=== PATIENT | female | born 1930 | race Caucasian/White ===

== ENCOUNTER 2018-02-19 13:29 | Emergency (ER) | payer OTHER ==
[2018-02-19] MEDS ORDERED: HYDROCODONE/APAP 5/325 MG TAB ONE (16:58)
--- NOTE | 2018-02-19 17:01 | RAD REPORT ---
EXAM DESCRIPTION: RAD - Pelvis - 02/19/2018 4:06 pm CLINICAL HISTORY: Pelvic pain FINDINGS: No fracture or dislocation is seen. The bones are osteoporotic. 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
--- NOTE | 2018-02-19 17:01 | RAD REPORT ---
EXAM DESCRIPTION: RAD - Lumbar Spine 3 Views - 02/19/2018 4:07 pm CLINICAL HISTORY: Back pain FINDINGS: The bones are osteoporotic No fracture or dislocation is seen. Mild anterior subluxation of L5 on S1 is present. The disc is markedly thinned. Mild spondylosis is present
--- NOTE | 2018-02-19 17:13 | EDPHYS ---
Physician Documentation [facility] Name: Gracie Lewis Age: 87 yrs Sex: Female : 1930 Arrival Date: 02/19/2018 Time: 13:31 Bed 13 Private MD: Jacinta Tracey C ED Physician Augusto Banda HPI: 02/19 14:51 This 87 yrs old Female presents to ER via Ambulatory with complaints of Back jmm Pain. 14:51 The patient presents with pain that is acute, with no known mechanism of injury. The jmm symptoms are located in the left gluteus. Onset: The symptoms/episode began/occurred today. The pain radiates to the left hip and lateral aspect of left thigh. Associated signs and symptoms: Pertinent negatives: dysuria, fever, hematuria, incontinence, nausea, numbness, urinary retention. This is an 87 year old female with a history of depression, Gastric Reflux, GERD, insomnia, lymphoma presents to the ED with left gluteal pain radiating down her left lateral leg. Patient denies weakness, numbness, fever, or injury. . Historical: - Allergies: 13:46 moon; aa5 13:46 GABAPENTIN; aa5 13:46 Lyrica; aa5 13:46 PENICILLINS; aa5 - PMHx: 13:46 Depression; Gastric Reflux; GERD; insomnia; LYMPHOMA; restless leg syndrome; Neuropathy;aa5 - Immunization history:: Adult Immunizations up to date. - Social history:: Smoking status: Patient/guardian denies using tobacco. - Ebola Screening: : Patient negative for fever greater than or equal to 101.5 degrees Fahrenheit, and additional compatible Ebola Virus Disease symptoms Patient denies exposure to infectious person Patient denies travel to an Ebola-affected area in the 21 days before illness onset No symptoms or risks identified at this time. ROS: 14:51 Constitutional: Negative for fever, chills, and weight loss, Cardiovascular: Negative jmm for chest pain, palpitations, and edema, Respiratory: Negative for shortness of breath, cough, wheezing, and pleuritic chest pain. 14:51 Back: Negative for pain at rest, pain with movement. 14:51 MS/extremity: Positive for pain. 14:51 Neuro: Negative for numbness, weakness. 14:51 All other systems are negative. Exam: 14:51 Head/Face: atraumatic. Chest/axilla: Normal chest wall appearance and motion. [facility] Cardiovascular: Regular rate and rhythm. No edema appreciated Respiratory: Normal respirations, no respiratory distress appreciated Abdomen/GI: Non distended, soft 14:51 Constitutional: The patient appears in no acute distress, alert, awake. 14:51 Musculoskeletal/extremity: ROM: intact in all extremities, left gluteus is non tender to palpation, patient is able to weight bear, flexion of the left hip is appreciated without difficulty. full dorsalis pedis pulse, NVI. 14:51 Skin: no rash is appreciated to the left gluteus. 14:51 Neuro: Orientation: is normal, Mentation: is normal, Gait: is steady. 14:51 Psych: Behavior/mood is pleasant, cooperative. Vital Signs: 13:46 BP 131 / 74; Pulse 99; Resp 16 S; Temp 97.7(O); Pulse Ox 95% on R/A; Weight 68.04 kg aa5 (R); Height 5 ft. 7 in. (170.18 cm) (R); Pain 8/10; 17:19 BP 129 / 78; Pulse 76; Resp 18; Pulse Ox 99% on R/A; aj 13:46 Body Mass Index 23.49 (68.04 kg, 170.18 cm) aa5 MDM: 14:51 Patient medically screened. [facility] 17:12 Data reviewed: vital signs, nurses notes, lab test result(s), radiologic studies, plain [facility] films. Counseling: I had a detailed discussion with the patient and/or guardian regarding: the historical points, exam findings, and any diagnostic results supporting the discharge/admit diagnosis, radiology results, the need for outpatient follow up, to return to the emergency department if symptoms worsen or persist or if there are any questions or concerns that arise at home. 02/19 14:54 Order name: Lumbar Spine (3 Views) XRAY; Complete Time: 17:20 [facility] 02/19 14:54 Order name: Pelvis XRAY; Complete Time: 17:20 [facility] Administered Medications: 16:59 Drug: [place] 5 mg-325 mg 1 tabs Route: PO; aj 17:22 Follow up: Response: Pain is decreased aj Disposition: 17:52 Co-signature as Attending Physician, Augusto Banda MD. rn Disposition: 02/19/18 17:13 Discharged to Home. Impression: Lower Extremity Pain. - Condition is Stable. - Discharge Instructions: Hip Pain. - Medication Reconciliation Form, Thank You Letter, Antibiotic Education, Prescription Opioid Use form. - Follow up: Jacinta Tracey MD; When: 2 - 3 days; Reason: Continuance of care. Follow up: Rex Guzman MD; When: 2 - 3 days; Reason: Continuance of care. Signatures: Dispatcher [employer] EDMS Josie Woodard, RN RN Clifton Piña PA PA [facility] Augusto Banda MD MD rn Calderon, Audri, RN RN aa5 Corrections: (The following items were deleted from the chart) 17:14 17:13 02/19/2018 17:13 Discharged to Home. Impression: Acute pharyngitis. Condition is m Stable. Forms are Medication Reconciliation Form, Thank You Letter, Antibiotic Education, Prescription Opioid Use. Follow up: Jacinta Tracey; When: 2 - 3 days; Reason: Continuance of care. [facility] 17:14 17:14 02/19/2018 17:13 Discharged to Home. Impression: Lower Extremity Pain. Condition jmm is Stable. Forms are Medication Reconciliation Form, Thank You Letter, Antibiotic Education, Prescription Opioid Use. Follow up: Jacinta Tracey; When: 2 - 3 days; Reason: Continuance of care. [facility] 17:22 17:14 02/19/2018 17:13 Discharged to Home. Impression: Lower Extremity Pain. Condition aj is Stable. Discharge Instructions: Hip Pain. Forms are Medication Reconciliation Form, Thank You Letter, Antibiotic Education, Prescription Opioid Use. Follow up: Jacinta Tracey; When: 2 - 3 days; Reason: Continuance of care. Follow up: Rex Guzman; When: 2 - 3 days; Reason: Continuance of care. [facility]
--- NOTE | 2018-02-19 17:13 | ER ---
Nurse's Notes [facility] Name: Gracie Lewis Age: 87 yrs Sex: Female : 1930 Arrival Date: 02/19/2018 Time: 13:31 Bed 13 Private MD: Jacinta Tracey C Diagnosis: Lower Extremity Pain Presentation: 02/19 13:44 Presenting complaint: Patient states: "the neuropathy on my hands and feet is aa5 particularly bad today". Pt also c/o left low back pain radiating to left leg that began today at 8 am. Pt denies known injury. Pt states "I took Vicodin but it's not helping". Transition of care: patient was not received from another setting of care. Onset of symptoms was January 2018. Risk Assessment: Do you want to hurt yourself or someone else? Patient reports no desire to harm self or others. Initial Sepsis Screen: Does the patient meet any 2 criteria? No. Patient's initial sepsis screen is negative. Does the patient have a suspected source of infection? No. Patient's initial sepsis screen is negative. Care prior to arrival: None. 13:44 Method Of Arrival: Ambulatory aa5 13:44 Acuity: ZUNILDA 4 aa5 Historical: - Allergies: 13:46 moon; aa5 13:46 GABAPENTIN; aa5 13:46 Lyrica; aa5 13:46 PENICILLINS; aa5 - PMHx: 13:46 Depression; Gastric Reflux; GERD; insomnia; LYMPHOMA; restless leg syndrome; Neuropathy;aa5 - Immunization history:: Adult Immunizations up to date. - Social history:: Smoking status: Patient/guardian denies using tobacco. - Ebola Screening: : Patient negative for fever greater than or equal to 101.5 degrees Fahrenheit, and additional compatible Ebola Virus Disease symptoms Patient denies exposure to infectious person Patient denies travel to an Ebola-affected area in the 21 days before illness onset No symptoms or risks identified at this time. Screenin:20 Abuse screen: Denies threats or abuse. Denies injuries from another. Nutritional aj screening: No deficits noted. Tuberculosis screening: No symptoms or risk factors identified. Fall Risk None identified. Assessment: 15:20 General: Appears in no apparent distress. comfortable, Behavior is calm, cooperative, aj appropriate for age. Pain: Complains of pain in left lower back, left gluteus dm and left gluteal fold. Neuro: Level of Consciousness is awake, alert, obeys commands, Oriented to person, place, time, situation, Appropriate for age. Respiratory: Airway is patent Respiratory effort is even, unlabored, Respiratory pattern is regular, symmetrical. Derm: Skin is intact, is healthy with good turgor, Skin is pink, warm \\T\\ dry. normal. Musculoskeletal: Reports pain in left lower back, left gluteus dm, left gluteal fold and left hamstring. Vital Signs: 13:46 BP 131 / 74; Pulse 99; Resp 16 S; Temp 97.7(O); Pulse Ox 95% on R/A; Weight 68.04 kg aa5 (R); Height 5 ft. 7 in. (170.18 cm) (R); Pain 8/10; 17:19 BP 129 / 78; Pulse 76; Resp 18; Pulse Ox 99% on R/A; aj 13:46 Body Mass Index 23.49 (68.04 kg, 170.18 cm) aa5 ED Course: 13:31 Patient arrived in ED. mr 13:32 Jacinta Tracey MD is Private Physician. mr 13:45 Triage completed. aa5 13:45 Arm band placed on. aa5 14:02 Clifton Salvador PA is PHCP. [facility] 14:02 Augusto Banda MD is Attending Physician. jmm 14:22 Josie Woodard, RN is Primary Nurse. aj 15:20 Patient has correct armband on for positive identification. aj 15:20 No provider procedures requiring assistance completed. aj 16:05 Lumbar Spine (3 Views) XRAY In Process Unspecified. EDMS 16:06 Pelvis XRAY In Process Unspecified. EDMS 17:12 Jacinta Tracey MD is Referral Physician. jmm 17:14 Rex Guzman MD is Referral Physician. jmm 17:19 Patient did not have IV access during this emergency room visit. aj Administered Medications: 16:59 Drug: [place] 5 mg-325 mg 1 tabs Route: PO; aj 17:22 Follow up: Response: Pain is decreased aj Outcome: 17:13 Discharge ordered by . jmm 17:19 Discharged to home ambulatory, with family. aj 17:19 Condition: good 17:19 Discharge instructions given to patient, family, Instructed on discharge instructions, follow up and referral plans. Demonstrated understanding of instructions, follow-up care. 17:22 Patient left the ED. kaden Signatures: Dispatcher [employer] Josie Huynh RN RN Clifton Piña PA PA jmm Rivera, Maria mr SnyderAudelia, RN RN aa5 Corrections: (The following items were deleted from the chart) 13:46 13:44 Presenting complaint: Patient states: "the neuropathy on my hands and feet is aa5 particularly bad today". Pt also c/o left low back pain radiating to left leg that began today at 8 am. Pt denies known injury. aa5
[2018-02-19 17:38] VITALS: TEMP 97.7
[2018-02-19 17:39] VITALS: BP 129/78; O2SAT 99
== END 2018-02-19 17:22 | disposition home or self-care (01) ==
LOC: ER 13:29
DX: M25.552 Pain in left hip (principal); M54.5 Low back pain
CPT/HCPCS: 72100; 72170; 99283

== ENCOUNTER 2018-06-04 10:29 | Emergency (ER) | payer OTHER ==
[2018-06-04 11:46] LABS: Absolute Lymphocytes (CBC) 2.1 K/uL (0.7-4.9); Absolute Monocytes 0.7 K/uL (0.1-1.3); Absolute Neutrophil 5.4 K/uL (1.8-8.0); Basophils % 1.2 % (0-1.3); Eosinophils % 1.1 % (0-4.4); Hematocrit 43.1 % (36.0-45.0); Lymphocytes % 25.1 % (15.3-44.8); MCH 28.8 pg (27.0-35.0); MCV 86.3 fL (80-100); MPV 7.3 fL (7.6-11.3)
[2018-06-04 12:05] LABS: ALT/SGPT 23 U/L (12-78); AST/SGOT 21 U/L (15-37); Albumin 4.7 g/dL (3.4-5.0); Alkaline Phosphatase 87 U/L (45-117); BUN Blood Urea Nitrogen 19 mg/dL (7-18); Bicarbonate 26 mmol/L (21-32); Bilirubin Direct 0.2 mg/dL (0-0.2); Bilirubin Total 0.7 mg/dL (0.2-1.0); Glucose Level 93 mg/dL (74-106); Magnesium 2.4 mg/dL (1.8-2.4); NT PRO-BNP 382 pg/mL (<450); Potassium 3.9 mmol/L (3.5-5.1); Protein, Total 7.9 g/dL (6.4-8.2); Sodium Level 140 mmol/L (136-145); Troponin (Emerg Dept Use Only) < 0.02 ng/mL (0.0-0.045)
[2018-06-04 12:28] LABS: Urine Blood NEGATIVE (NEG); Urine Glucose NEGATIVE (NEG); Urine Protein NEGATIVE (NEG); Urine Specific Gravity 1.015 (1.005-1.030); Urine pH 7.5 (5.0-7.0)
[2018-06-04 12:42] LABS: Protime INR 0.89
--- NOTE | 2018-06-04 13:12 | RAD REPORT ---
EXAM DESCRIPTION: CT - Chest Abdomen W Con - 06/04/2018 12:49 pm CLINICAL HISTORY: Chest and abdominal pain COMPARISON: March 2017 TECHNIQUE: Computed axial tomography of the chest, and abdomen obtained. 100 cc Isovue-300 administe red intravenously. Oral contrast was not requested. Evaluation of bowel is limited second lack of ora l contrast administration All CT scans are performed using dose optimization technique as appropriate and may include automated exposure control or mA/KV adjustment according to patient size. 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 Calcified lung granulomas are seen. Mild chronic interstitial lung opacities are present. . A pleural effusion is not present. A pericardial effusion is not seen. No mediastinal or hilar lymphadenopathy is noted. The gallbladder has been removed. Liver, spleen, pancreas and adrenals appear unremarkable. No ascites is seen. Spondylolysis involves L5 A small hiatal hernia is present. Moderate amount of stool is seen within visualized bowel IMPRESSION: No acute abnormality involving the chest Moderate amount of stool within the abdomen
--- NOTE | 2018-06-04 13:13 | RAD REPORT ---
EXAM DESCRIPTION: Danyel Single View06/04/2018 11:45 am CLINICAL HISTORY: Chest pain COMPARISON: March 2017 FINDINGS: The lungs appear clear of acute infiltrate. The heart is normal size. Pacemaker leads are place. Calcified biapical pleural plaques are unchanged IMPRESSION: No acute abnormalities displayed
--- NOTE | 2018-06-04 15:39 | ER ---
Nurse's Notes [facility] Name: Gracie Lewis Age: 87 yrs Sex: Female : 1930 Arrival Date: 06/04/2018 Time: 10:31 Bed 5 Private MD: Diagnosis: Acute myofascial pain: left infrascapula Presentation: 06/04 10:38 Presenting complaint: Patient states: since I got out of the shower at 0500 this la1 morning I have been having pain below my left shoulder blade that radiates around to the front of my abd. Pt denies fall/injury. Pain with deep breath and cough. Transition of care: patient was not received from another setting of care. Onset of symptoms was June 04, 2018. Risk Assessment: Do you want to hurt yourself or someone else? Patient reports no desire to harm self or others. Initial Sepsis Screen: Does the patient meet any 2 criteria? No. Patient's initial sepsis screen is negative. Does the patient have a suspected source of infection? No. Patient's initial sepsis screen is negative. Care prior to arrival: None. 10:38 Method Of Arrival: Ambulatory la1 10:38 Acuity: ZUNILDA 3 la1 Historical: - Allergies: 10:40 moon; la1 10:40 Lyrica; la1 10:40 PENICILLINS; la1 10:40 tramadol; la1 - Home Meds: 11:00 Ambien 5 mg Oral tab 1 tab once daily for Sleep-Onset Insomnia [Active]; aspirin 81 mg tw2 Oral chew 1 tab once daily [Active]; calcium (unkown) daily [Active]; Cymbalta 30 mg Oral cpDR 1 cap once daily [Active]; lanzaprozole 15 mg daily 15 mg before meals [Active]; Multi Vitamin Oral 1 tab daily [Active]; Oxybutynin Chloride Oral once daily [Active]; pramipexole 1.25 mg Oral unkown for Restless Legs Syndrome [Active]; hydrocodone-acetaminophen 10-325 mg Oral tab .5 tab every 6 hours [Active]; - PMHx: 10:40 Depression; Gastric Reflux; GERD; insomnia; LYMPHOMA; neuropathy; restless leg syndrome;la1 - PSHx: 10:40 pacemaker; la1 - Immunization history:: Adult Immunizations up to date. - Social history:: Smoking status: Patient/guardian denies using tobacco. - Ebola Screening: : No symptoms or risks identified at this time. Screenin:52 Abuse screen: Denies threats or abuse. Nutritional screening: No deficits noted. tw2 Tuberculosis screening: No symptoms or risk factors identified. Fall Risk None identified. Assessment: 10:52 General: Appears in no apparent distress. well groomed, Behavior is calm, cooperative, tw2 appropriate for age. Pain: Complains of pain in left lateral posterior chest. Neuro: Level of Consciousness is awake, alert, obeys commands, Oriented to person, place, time, situation. Cardiovascular: Reports chest pain, shortness of breath, "it hurts to breathe, it started after my shower about 5 am in my LEFT shoulder then it radiates around, and it hurts to breathe" Heart tones S1 S2 Capillary refill < 3 seconds Patient's skin is warm and dry. Respiratory: Airway is patent Respiratory effort is even, unlabored, Respiratory pattern is regular, symmetrical, Breath sounds are clear bilaterally. GI: No signs and/or symptoms were reported involving the gastrointestinal system. Abdomen is flat, Bowel sounds present X 4 quads. : No signs and/or symptoms were reported regarding the genitourinary system. EENT: No signs and/or symptoms were reported regarding the EENT system. Derm: No signs and/or symptoms reported regarding the dermatologic system. Musculoskeletal: Reports pain in left lateral posterior chest and left back. 11:45 Reassessment: Patient appears in no apparent distress at this time. Patient and/or tw2 family updated on plan of care and expected duration. Pain level reassessed. Patient is alert, oriented x 3, equal unlabored respirations, skin warm/dry/pink. at this time pt took her own Hydrocodone, Dr. Blanc aware. 12:30 Reassessment: Patient appears in no apparent distress at this time. No changes from tw2 previously documented assessment. Patient and/or family updated on plan of care and expected duration. Pain level reassessed. Patient is alert, oriented x 3, equal unlabored respirations, skin warm/dry/pink. 13:50 Reassessment: Patient appears in no apparent distress at this time. No changes from tw2 previously documented assessment. Patient and/or family updated on plan of care and expected duration. Pain level reassessed. Patient is alert, oriented x 3, equal unlabored respirations, skin warm/dry/pink. 14:36 Reassessment: Patient appears in no apparent distress at this time. No changes from tw2 previously documented assessment. Patient and/or family updated on plan of care and expected duration. Pain level reassessed. Patient is alert, oriented x 3, equal unlabored respirations, skin warm/dry/pink. 15:42 Reassessment: Patient appears in no apparent distress at this time. No changes from tw2 previously documented assessment. Patient and/or family updated on plan of care and expected duration. Pain level reassessed. Patient is alert, oriented x 3, equal unlabored respirations, skin warm/dry/pink. Vital Signs: 10:40 BP 148 / 78; Pulse 92; Resp 16; Temp 97.8(TE); Pulse Ox 98% on R/A; Weight 68.04 kg; la1 Height 5 ft. 8 in. (172.72 cm); 11:46 BP 164 / 83; Pulse 73; Resp 11; Pulse Ox 98% on R/A; tw2 12:50 BP 133 / 93; Pulse 87; Resp 17; Pulse Ox 97% on R/A; tw2 13:30 BP 135 / 98; Pulse 80; Resp 17; Pulse Ox 96% on R/A; tw2 14:34 BP 119 / 100; Pulse 85; Resp 14; Pulse Ox 96% on R/A; tw2 15:42 BP 153 / 71; Pulse 75; Resp 17; Pulse Ox 100% on R/A; tw2 10:40 Body Mass Index 22.81 (68.04 kg, 172.72 cm) la1 ED Course: 10:31 Patient arrived in ED. as 10:39 Triage completed. la1 10:40 Arm band placed on right wrist. la1 10:41 Yessy Castellon, RN is Primary Nurse. tw2 10:45 Marck Blanc MD is Attending Physician. kdr 10:51 Placed in gown. Bed in low position. Side rails up X 1. Adult w/ patient. Cardiac tw2 monitor on. Pulse ox on. NIBP on. 10:59 EKG done, by ED staff, reviewed by Marck Blanc MD. dh3 11:45 XRAY Chest (1 view) In Process Unspecified. EDMS 11:45 Missed attempt(s): 22 gauge in right antecubital area. Bleeding controlled, band aid tw2 applied, catheter tip intact. Inserted saline lock: 22 gauge in right antecubital area, using aseptic technique. Blood collected. 12:50 CT Chest Abdomen W/ Contrast In Process Unspecified. EDMS 15:37 Jorge Tracey MD is Referral Physician. kdr 15:46 No provider procedures requiring assistance completed. IV discontinued, intact, tw2 bleeding controlled, No redness/swelling at site. Pressure dressing applied. Administered Medications: 15:41 Not Given (Patient Refused; "i will take my own medicine at home to keep up with it"): tw2 [place] 10 mg-325 mg 1 tabs PO once Outcome: 15:38 Discharge ordered by . kdr 15:46 Discharged to home ambulatory, with family. tw2 15:46 Condition: stable 15:46 Discharge instructions given to patient, family, Instructed on discharge instructions, follow up and referral plans. Demonstrated understanding of instructions, follow-up care. 15:46 Patient left the ED. tw2 Signatures: Dispatcher [employer] EDMS Marck Blanc MD MD kdr Radha Lambert Lee RN RN la1 Yessy Castellon RN RN tw2 Radha Muñiz 3 Corrections: (The following items were deleted from the chart) 10:41 10:38 Presenting complaint: Patient states: since I got out of the shower at 0500 this la1 morning I have been having pain below my left shoulder blade that radiates around to the front of my abd. Pt denies fall/injury. la1
--- NOTE | 2018-06-04 15:39 | EDPHYS ---
Physician Documentation [facility] Name: Gracie Lewis Age: 87 yrs Sex: Female : 1930 Arrival Date: 06/04/2018 Time: 10:31 Bed 5 Private MD: ED Physician Marck Blanc HPI: 06/04 13:01 This 87 yrs old Female presents to ER via Ambulatory with complaints of Back kdr Pain. 13:01 The patient presents with pain that is acute, with no known mechanism of injury. The kdr symptoms are located in the Left lateral infra-thoracic. Onset: The symptoms/episode began/occurred suddenly, just prior to arrival, this morning, at 05:00. States she feels like she has a band like stricture around her lower thorax. Associated signs and symptoms: The patient has no apparent associated signs or symptoms. The problem was sustained without known cause. Modifying factors: The patient symptoms are alleviated by remaining still, the patient symptoms are aggravated by any movement, bending, coughing, movement. Severity of symptoms: At their worst the symptoms were moderate, severe, just prior to arrival, in the emergency department the symptoms have improved, mildly. The patient has not experienced similar symptoms in the past. The patient has not recently seen a physician. Historical: - Allergies: 10:40 moon; la1 10:40 Lyrica; la1 10:40 PENICILLINS; la1 10:40 tramadol; la1 - Home Meds: 11:00 Ambien 5 mg Oral tab 1 tab once daily for Sleep-Onset Insomnia [Active]; aspirin 81 mg tw2 Oral chew 1 tab once daily [Active]; calcium (unkown) daily [Active]; Cymbalta 30 mg Oral cpDR 1 cap once daily [Active]; lanzaprozole 15 mg daily 15 mg before meals [Active]; Multi Vitamin Oral 1 tab daily [Active]; Oxybutynin Chloride Oral once daily [Active]; pramipexole 1.25 mg Oral unkown for Restless Legs Syndrome [Active]; hydrocodone-acetaminophen 10-325 mg Oral tab .5 tab every 6 hours [Active]; - PMHx: 10:40 Depression; Gastric Reflux; GERD; insomnia; LYMPHOMA; neuropathy; restless leg syndrome;la1 - PSHx: 10:40 pacemaker; la1 - Immunization history:: Adult Immunizations up to date. - Social history:: Smoking status: Patient/guardian denies using tobacco. - Ebola Screening: : No symptoms or risks identified at this time. ROS: 13:01 Constitutional: Negative for fever, chills, and weight loss, Eyes: Negative for injury, kdr pain, redness, and discharge, ENT: Negative for injury, pain, and discharge, Neck: Negative for injury, pain, and swelling, Cardiovascular: Negative for chest pain, palpitations, and edema, Respiratory: Negative for shortness of breath, cough, wheezing, and pleuritic chest pain, Abdomen/GI: Negative for abdominal pain, nausea, vomiting, diarrhea, and constipation, : Negative for injury, bleeding, discharge, and swelling, MS/Extremity: Negative for injury and deformity, Skin: Negative for injury, rash, and discoloration, Neuro: Negative for headache, weakness, numbness, tingling, and seizure activity. Psych: Negative for depression, anxiety, suicide ideation, homicidal ideation, and hallucinations, Allergy/Immunology: Negative for hives, rash, and allergies, Endocrine: Negative for neck swelling, polydipsia, polyuria, polyphagia, and marked weight changes, Hematologic/Lymphatic: Negative for swollen nodes, abnormal bleeding, and unusual bruising. 13:01 Back: Positive for decreased range of motion, pain at rest, pain with movement. Exam: 13:01 Constitutional: This is a well developed, well nourished patient who is awake, alert, kdr and in no acute distress. Head/Face: Normocephalic, atraumatic. Eyes: Pupils equal round and reactive to light, extra-ocular motions intact. Lids and lashes normal. Conjunctiva and sclera are non-icteric and not injected. Cornea within normal limits. Periorbital areas with no swelling, redness, or edema. Neck: Trachea midline, no thyromegaly or masses palpated, and no cervical lymphadenopathy. Supple, full range of motion without nuchal rigidity, or vertebral point tenderness. No Meningismus. Chest/axilla: Normal chest wall appearance and motion. Nontender with no deformity. No lesions are appreciated. Cardiovascular: Regular rate and rhythm with a normal S1 and S2. No gallops, murmurs, or rubs. Normal PMI, no JVD. No pulse deficits. Respiratory: Lungs have equal breath sounds bilaterally, clear to auscultation and percussion. No rales, rhonchi or wheezes noted. No increased work of breathing, no retractions or nasal flaring. Abdomen/GI: Soft, non-tender, with normal bowel sounds. No distension or tympany. No guarding or rebound. No evidence of tenderness throughout. Back: No spinal tenderness. No costovertebral tenderness. Full range of motion. Skin: Warm, dry with normal turgor. Normal color with no rashes, no lesions, and no evidence of cellulitis. MS/ Extremity: Pulses equal, no cyanosis. Neurovascular intact. Full, normal range of motion. Neuro: Awake and alert, GCS 15, oriented to person, place, time, and situation. Cranial nerves II-XII grossly intact. Motor strength 5/5 in all extremities. Sensory grossly intact. Cerebellar exam normal. Normal gait. Psych: Awake, alert, with orientation to person, place and time. Behavior, mood, and affect are within normal limits. Vital Signs: 10:40 BP 148 / 78; Pulse 92; Resp 16; Temp 97.8(TE); Pulse Ox 98% on R/A; Weight 68.04 kg; la1 Height 5 ft. 8 in. (172.72 cm); 11:46 BP 164 / 83; Pulse 73; Resp 11; Pulse Ox 98% on R/A; tw2 12:50 BP 133 / 93; Pulse 87; Resp 17; Pulse Ox 97% on R/A; tw2 13:30 BP 135 / 98; Pulse 80; Resp 17; Pulse Ox 96% on R/A; tw2 14:34 BP 119 / 100; Pulse 85; Resp 14; Pulse Ox 96% on R/A; tw2 15:42 BP 153 / 71; Pulse 75; Resp 17; Pulse Ox 100% on R/A; tw2 10:40 Body Mass Index 22.81 (68.04 kg, 172.72 cm) la1 MDM: 13:01 Data reviewed: vital signs, nurses notes, lab test result(s), radiologic studies. kdr Counseling: I had a detailed discussion with the patient and/or guardian regarding: the historical points, exam findings, and any diagnostic results supporting the discharge/admit diagnosis, lab results, radiology results. 15:38 Patient medically screened. kdr 06/04 11:18 Order name: Basic Metabolic Panel; Complete Time: 12:52 kdr 06/04 11:18 Order name: CBC with Diff; Complete Time: 12:03 kdr 06/04 11:18 Order name: LFT's; Complete Time: 12:52 kdr 06/04 11:18 Order name: Magnesium; Complete Time: 12:52 kdr 06/04 11:18 Order name: NT PRO-BNP; Complete Time: 12:52 kdr 06/04 11:18 Order name: PT-INR; Complete Time: 12:52 kdr 06/04 10:54 Order name: EKG - Nurse/Tech; Complete Time: 10:54 tw2 06/04 10:54 Order name: EKG; Complete Time: 10:54 tw2 06/04 11:18 Order name: Troponin (emerg Dept Use Only); Complete Time: 12:52 kdr 06/04 11:18 Order name: XRAY Chest (1 view); Complete Time: 13:15 kdr 06/04 11:46 Order name: Urine Dipstick--Ancillary (enter results); Complete Time: 12:52 em1 06/04 12:03 Order name: CT Chest Abdomen W/ Contrast; Complete Time: 13:15 kdr 06/04 13:16 Order name: Troponin (emerg Dept Use Only); Complete Time: 14:24 kdr 06/04 11:18 Order name: Cardiac monitoring; Complete Time: 11:18 kdr 06/04 11:18 Order name: IV Saline Lock; Complete Time: 11:46 kdr 06/04 11:18 Order name: Labs collected and sent; Complete Time: 11:47 kdr 06/04 11:18 Order name: O2 Per Protocol; Complete Time: 11:18 kdr 06/04 11:18 Order name: O2 Sat Monitoring; Complete Time: 11:18 kdr 06/04 11:46 Order name: Urine Dipstick-Ancillary (obtain specimen); Complete Time: 11:46 em1 Administered Medications: 15:41 Not Given (Patient Refused; "i will take my own medicine at home to keep up with it"): tw2 [place] 10 mg-325 mg 1 tabs PO once Disposition: 06/04/18 15:38 Discharged to Home. Impression: Acute myofascial pain: left infrascapula. - Condition is Stable. - Discharge Instructions: Musculoskeletal Pain, Back Pain, Adult, [id number]. - Medication Reconciliation Form, Thank You Letter form. - Follow up: Jorge Tracey MD; When: 2 - 3 days; Reason: If symptoms return, Further diagnostic work-up, Recheck today's complaints, Continuance of care, Re-evaluation by your physician. - Problem is new. - Symptoms have improved. Signatures: Dispatcher [employer] EDMS Marck Blanc MD MD [facility] Tab Lambert em1 Adarsh Cook RN RN la1 Yessy Castellon RN RN tw2 Corrections: (The following items were deleted from the chart) 15:46 15:38 06/04/2018 15:38 Discharged to Home. Impression: Acute myofascial pain: left tw2 infrascapula. Condition is Stable. Forms are Medication Reconciliation Form, Thank You Letter, Antibiotic Education, Prescription Opioid Use. Follow up: Jroge Tracey; When: 2 - 3 days; Reason: If symptoms return, Further diagnostic work-up, Recheck today's complaints, Continuance of care, Re-evaluation by your physician. Problem is new. Symptoms have improved. kdr
[2018-06-04 15:53] VITALS: TEMP 97.8
[2018-06-04 15:58] VITALS: BP 153/71; O2SAT 100
--- NOTE | 2018-06-05 06:09 | EKG ---
Test Date: 2018-06-04 Test Time: 10:58:07 Manager Unix: KATIE MEASUREMENT RESULTS: Intervals: Rate: 81 SD: QRSD: 76 QT: 384 QTc: 446 [place]: P: SD: QRS: 74 T: 77 INTERPRETIVE STATEMENTS: Sinus rhythm Nnormal ECG Compared to ECG 03/19/2017 17:34:53 no significant change from previous ECG Electronically Signed On 06-05-18 06:09:00 BIOINFORMATICS SCIENTIST by José Cifuentes
== END 2018-06-04 15:46 | disposition home or self-care (01) ==
LOC: ER 10:29
DX: M79.18 Myalgia, other site (principal); K21.9 Gastro-esophageal reflux disease without esophagitis; F32.9 Major depressive disorder, single episode, unspecified; Z79.82 Long term (current) use of aspirin; Z88.0 Allergy status to penicillin; Z88.6 Allergy status to analgesic agent; Z88.8 Allergy status to other drugs, medicaments and biological substances; Z95.0 Presence of cardiac pacemaker; Z91.048 Other nonmedicinal substance allergy status
CPT/HCPCS: 36415; 71045; 71260; 74160; 80048; 80076; 81003; 83735; 83880; 84484 ×2; 85025; 85610; 93005; 99284; Q9967

== ENCOUNTER 2019-02-19 19:13 | Inpatient (IN) | payer OTHER ==
--- NOTE | 2019-02-19 19:54 | RAD REPORT ---
EXAM DESCRIPTION: RAD - Chest Single View - 02/19/2019 7:45 pm CLINICAL HISTORY: CHEST PAIN Chest pain. COMPARISON: <Comparisons> FINDINGS: Portable technique limits examination quality. Emphysematous changes are present with vague ill-defined opacities in both lung bases, worse on the l eft, which may indicate developing pneumonia or aspiration. Fullness in the right hilar region may be related to prominent vascular shadow or lymphadenopathy. The heart is normal in size. Dual lead pace r device is present.
--- OUTSIDE RECORDS SUMMARY | 2019-02-19 19:55 | XMS REPORT ---
:1930 Author Organization [facility] Address [address] [place] [address] Dr. Stevens [address] [place] [id number] Care Team Providers Name Role Phone Unavailable Unavailable Unavailable Problems This patient has no known problems. Allergies, Adverse Reactions, Alerts This patient has no known allergies or adverse reactions. Medications This patient has no known medications.
[2019-02-19] MEDS ORDERED: NA CHLORIDE 0.9% 2,000 ML ONE (20:21)
[2019-02-19] MEDS ORDERED: AZITHROMYCIN 500 MG INJ IVPB ONE (20:45)
[2019-02-19] MEDS ORDERED: Levofloxacin500mg IV 500 MG/100 ML BAG IV ONE (20:45)
[2019-02-19] MEDS ORDERED: IPRATROPIUM BROM 0.5MG/2.5ML ONE (20:45)
[2019-02-19] MEDS ORDERED: ALBUTEROL 2.5 MG/3 ML NEB SOL ONE (20:45)
[2019-02-19] MEDS ORDERED: NA CHLORIDE 0.9% 250 ML ONE (20:46)
[2019-02-19 20:50] LABS: Absolute Lymphocytes (CBC) 1.2 K/uL (0.7-4.9); Basophils % 0.2 % (0-1.3); Lymphocytes % 6.2 % (15.3-44.8); MPV 7.8 fL (7.6-11.3); RBC Red Blood Cell Count 5.23 M/uL (3.86-4.86)
[2019-02-19 20:55] LABS: Protime INR 1.04
--- NOTE | 2019-02-19 21:06 | ER ---
Nurse's Notes [facility] Name: Gracie Lewis Age: 88 yrs Sex: Female : 1930 Arrival Date: 02/19/2019 Time: 19:16 Bed 2 Private MD: Diagnosis: Pneumonia due to other specified infectious organisms;Hypoxemia Presentation: 02/19 19:30 Presenting complaint: Patient states: She has been having chest pain and shortness of aj1 breath, she thought it was because she was sick earlier this week, but her chest pain and shortness of breath are getting worse. Reports that she gets pneumonia a lot so she is worried that she might have pneumonia again. Transition of care: patient was not received from another setting of care. Onset of symptoms was January 2019. Risk Assessment: Do you want to hurt yourself or someone else? Patient reports no desire to harm self or others. Initial Sepsis Screen: Does the patient meet any 2 criteria? RR > 20 per min. HR > 90 bpm. No. Patient's initial sepsis screen is negative. Does the patient have a suspected source of infection? Yes: Productive cough/pneumonia. Initial Sepsis Screen: If YES to both, name of provider notified: Ian Healy MD. Care prior to arrival: None. 19:30 Method Of Arrival: Wheelchair aj1 19:30 Acuity: ZUNILDA 2 aj1 Triage Assessment: 19:36 General: Appears in no apparent distress. comfortable, Behavior is calm, cooperative, aj1 appropriate for age. Pain: Complains of pain in chest Pain currently is 8 out of 10 on a pain scale. Neuro: Level of Consciousness is awake, alert, obeys commands, Oriented to person, place, time, situation. Cardiovascular: Reports chest pain, shortness of breath, Patient's skin is warm and dry. Respiratory: Airway is patent Respiratory effort is even, unlabored, Respiratory pattern is regular, symmetrical. Historical: - Allergies: 19:36 moon; aj1 19:36 Lyrica; aj1 19:36 PENICILLINS; aj1 19:36 tramadol; aj1 - Home Meds: 19:36 aspirin 81 mg Oral chew 1 tab once daily [Active]; Cymbalta 30 mg Oral cpDR 2 caps once aj1 daily [Active]; gabapentin 300 mg oral cap 1 cap 3 times per day [Active]; hydrocodone-acetaminophen 10-325 mg Oral tab 0.5 tab every 6 hours [Active]; Multi Vitamin Oral 1 tab daily [Active]; oxybutynin chloride 10 mg oral tr24 once daily [Active]; rivastigmine tartrate 4.5 mg oral cap 1 cap 2 times per day [Active]; lanzaprozole 15 mg daily 15 mg before meals [Active]; hydroxyzine HCl 25 mg Oral tab 1 tab 3 times per day [Active]; - PMHx: 19:36 Depression; Gastric Reflux; GERD; insomnia; LYMPHOMA; neuropathy; restless leg syndrome;aj1 - Immunization history:: Flu vaccine is up to date. - Social history:: Smoking status: Patient/guardian denies using tobacco. - Ebola Screening: : Patient denies travel to an Ebola-affected area in the 21 days before illness onset. Screenin:23 Abuse screen: Denies threats or abuse. Denies injuries from another. Nutritional ak1 screening: No deficits noted. Tuberculosis screening: No symptoms or risk factors identified. Fall Risk None identified. Assessment: 20:24 General: Appears uncomfortable, Behavior is calm. Pain: Complains of pain in diaphragm ea Pain radiates to back. Neuro: Level of Consciousness is awake, alert, obeys commands. Neuro: Oriented to person, place. Cardiovascular: Patient's skin is warm and dry. Respiratory: Airway is patent Respiratory effort is even, unlabored, Respiratory pattern is symmetrical, tachypnea. Derm: Skin is dry, Skin is pale, Skin temperature is warm. 22:29 Reassessment: Patient appears in no apparent distress at this time. Patient and/or ak1 family updated on plan of care and expected duration. Pain level reassessed. Patient is alert, oriented x 3, equal unlabored respirations, skin warm/dry/pink. pt and family informed of need for admission. pt placed on 2L NC. Vital Signs: 19:36 BP 113 / 61; Pulse 113; Resp 24; Temp 98.2; Pulse Ox 94% on R/A; Weight 68.04 kg (R); aj1 Height 5 ft. 8 in. (172.72 cm) (R); Pain 8/10; 21:00 BP 109 / 75; Pulse 101; Resp 22; Pulse Ox 99% on 15% Nebulizer Mask; ak1 21:30 BP 118 / 54; Pulse 108; Resp 22; Pulse Ox 90% on R/A; ak1 22:30 BP 110 / 50; Pulse 108; Resp 24; Pulse Ox 94% on 2 lpm NC; ak1 22:40 Temp 97.7(TE); ak1 19:36 Body Mass Index 22.81 (68.04 kg, 172.72 cm) aj1 ED Course: 19:16 Patient arrived in ED. ds1 19:19 Ian Healy MD is Attending Physician. tw4 19:34 Triage completed. aj1 19:36 Arm band placed on Patient placed in an exam room. aj1 19:46 XRAY Chest (1 view) In Process Unspecified. EDMS 19:47 Shelli Burrows, RN is Primary Nurse. ak1 20:23 Patient has correct armband on for positive identification. Placed in gown. Bed in low ak1 position. Call light in reach. Side rails up X 1. desk monitor on. Pulse ox on. NIBP on. Door closed. Lights dimmed. Warm blanket given. Pillow given. 20:23 No provider procedures requiring assistance completed. Patient maintains SpO2 ak1 saturation greater than 95% on room air. 20:47 Missed attempt(s): 22 gauge Bleeding controlled, band aid applied, catheter tip intact. oe 20:48 Inserted saline lock: 22 gauge in right antecubital area, using aseptic technique. oe Blood collected. 21:05 Merlene Sotelo MD is Hospitalizing Provider. tw4 21:37 Notified ED physician of a critical lab result(s). lactate 2.1. aa1 22:45 Patient admitted, IV remains in place. ak1 Administered Medications: 20:30 Drug: NS 0.9% (30 ml/kg) 30 ml/kg Route: IV; Rate: bolus; Site: right antecubital; ea 22:34 Follow up: IV Status: Infusion continued upon admission; IV Intake: 1000ml ; IV Pause: ak1 02/19/2019 22:34; IV Pause Reason: Limited IV access/Medication interaction 23:08 Follow up: IV Status: Infusion continued upon admission ak1 20:38 Drug: DuoNeb (3:1) (2.5 mg - 0.5 mg) 3 ml Route: Nebulizer; ea 22:33 Follow up: Response: No adverse reaction ak1 21:19 Drug: HYDROcodone-acetaminophen 5 mg-325 mg 1 tabs Route: PO; ea 22:33 Follow up: Response: No adverse reaction ak1 21:22 Drug: LevaQUIN 500 mg Volume: 100 ml; Route: IVPB; Infused Over: 60 mins; Site: right ak1 forearm; 22:28 Follow up: IV Status: Completed infusion; IV Intake: 100ml ak1 22:28 Drug: AZITHromycin 500 mg Route: IVPB; Infused Over: 1 hrs; Site: right antecubital; ak1 23:08 Follow up: IV Status: Infusion continued upon admission ak1 Point of Care Testing: Blood Glucose: 20:23 Blood Glucose: 166 mg/dL; ak1 Ranges: Intake: 22:28 IV: 100ml; Total: 100ml. ak1 22:34 IV: 1000ml; Total: 1100ml. ak1 Outcome: 21:06 Decision to Hospitalize by Provider. tw4 22:45 Admitted to Tele accompanied by tech, family with patient, via stretcher, room 213, on ak1 monitor, with chart, Report called to Gerald 22:45 Condition: stable 22:45 Instructed on the need for admit. 23:12 Patient left the ED. ak1 Signatures: Dispatcher [employer] Jennyfer Vickers, RN RN aj1 Padmaja Singh RN RN Pamela Heredia Amber, RN RN ak1 Alton Temple Elena, RN RN ea Wadley, Terrence, MD MD tw4
--- NOTE | 2019-02-19 21:06 | EDPHYS ---
Physician Documentation [facility] Name: Gracie Lewis Age: 88 yrs Sex: Female : 1930 Arrival Date: 02/19/2019 Time: 19:16 Bed 2 Private MD: ED Physician Ian Healy HPI: 02/19 21:57 This 88 yrs old Female presents to ER via Wheelchair with complaints of Chest tw4 Pain, Shortness Of Breath. 21:57 The patient or guardian reports chest pain that is located primarily in the anterior tw4 chest wall, left. Onset: 3 day(s) ago. The pain does not radiate. Associated signs and symptoms: The patient has no apparent associated signs or symptoms. The chest pain is described as dull. Modifying factors: The symptoms are alleviated by remaining still, the symptoms are aggravated by deep breath. Severity of pain: At its worst the pain was moderate. Historical: - Allergies: 19:36 moon; aj1 19:36 Lyrica; aj1 19:36 PENICILLINS; aj1 19:36 tramadol; aj1 - Home Meds: 19:36 aspirin 81 mg Oral chew 1 tab once daily [Active]; Cymbalta 30 mg Oral cpDR 2 caps once aj1 daily [Active]; gabapentin 300 mg oral cap 1 cap 3 times per day [Active]; hydrocodone-acetaminophen 10-325 mg Oral tab 0.5 tab every 6 hours [Active]; Multi Vitamin Oral 1 tab daily [Active]; oxybutynin chloride 10 mg oral tr24 once daily [Active]; rivastigmine tartrate 4.5 mg oral cap 1 cap 2 times per day [Active]; lanzaprozole 15 mg daily 15 mg before meals [Active]; hydroxyzine HCl 25 mg Oral tab 1 tab 3 times per day [Active]; - PMHx: 19:36 Depression; Gastric Reflux; GERD; insomnia; LYMPHOMA; neuropathy; restless leg syndrome;aj1 - Immunization history:: Flu vaccine is up to date. - Social history:: Smoking status: Patient/guardian denies using tobacco. - Ebola Screening: : Patient denies travel to an Ebola-affected area in the 21 days before illness onset. ROS: 21:57 Constitutional: Negative for fever, chills, and weight loss, Eyes: Negative for injury, tw4 pain, redness, and discharge, Cardiovascular: Negative for chest pain, palpitations, and edema, Respiratory: Negative for shortness of breath, cough, wheezing, and pleuritic chest pain, Abdomen/GI: Negative for abdominal pain, nausea, vomiting, diarrhea, and constipation, MS/Extremity: Negative for injury and deformity, Skin: Negative for injury, rash, and discoloration. Exam: 21:57 Constitutional: This is a well developed, well nourished patient who is awake, alert, tw4 and in no acute distress. Head/Face: Normocephalic, atraumatic. Chest/axilla: Normal chest wall appearance and motion. Nontender with no deformity. No lesions are appreciated. Cardiovascular: Regular rate and rhythm with a normal S1 and S2. No gallops, murmurs, or rubs. Normal PMI, no JVD. No pulse deficits. 21:57 Back: No spinal tenderness. No costovertebral tenderness. Full range of motion. Skin: Warm, dry with normal turgor. Normal color with no rashes, no lesions, and no evidence of cellulitis. MS/ Extremity: Pulses equal, no cyanosis. Neurovascular intact. Full, normal range of motion. 21:57 Respiratory: mild respiratory distress is noted, Respirations: normal, Breath sounds: rales, are located in both bases. Vital Signs: 19:36 BP 113 / 61; Pulse 113; Resp 24; Temp 98.2; Pulse Ox 94% on R/A; Weight 68.04 kg (R); aj1 Height 5 ft. 8 in. (172.72 cm) (R); Pain 8/10; 21:00 BP 109 / 75; Pulse 101; Resp 22; Pulse Ox 99% on 15% Nebulizer Mask; ak1 21:30 BP 118 / 54; Pulse 108; Resp 22; Pulse Ox 90% on R/A; ak1 22:30 BP 110 / 50; Pulse 108; Resp 24; Pulse Ox 94% on 2 lpm NC; ak1 22:40 Temp 97.7(TE); ak1 19:36 Body Mass Index 22.81 (68.04 kg, 172.72 cm) aj1 MDM: 19:19 Patient medically screened. tw4 21:02 Differential diagnosis: pulmonary embolus. Data reviewed: vital signs, nurses notes. tw4 Data interpreted: Pulse oximetry: is not applicable for this patient encounter. 21:57 Physician consultation: Merlene Sotelo MD and will see patient in inpatient room. tw02/19 19:30 Order name: Basic Metabolic Panel 02/19 19:30 Order name: CBC with Diff 02/19 19:30 Order name: LFT's 02/19 19:30 Order name: Magnesium 02/19 19:30 Order name: NT PRO-BNP 02/19 19:30 Order name: PT-INR 02/19 19:30 Order name: Troponin (emerg Dept Use Only) 02/19 19:35 Order name: Blood Culture Adult (2) tw 02/19 19:35 Order name: Lactate [facility] 02/19 19:35 Order name: Procalcitonin [facility] 02/19 19:35 Order name: Urine Microscopic Only [facility] 02/19 20:51 Order name: Creatine Phosphokinase [facility] 02/19 19:30 Order name: XRAY Chest (1 view) 02/19 19:30 Order name: EKG; Complete Time: 19:31 02/19 19:30 Order name: Cardiac monitoring; Complete Time: 19:53 02/19 19:30 Order name: EKG - Nurse/Tech; Complete Time: 19:54 02/19 19:30 Order name: IV Saline Lock; Complete Time: 22:39 02/19 19:30 Order name: Labs collected and sent; Complete Time: 22:39 02/19 19:30 Order name: O2 Per Protocol; Complete Time: 20:21 02/19 19:30 Order name: O2 Sat Monitoring; Complete Time: 20:21 02/19 19:35 Order name: Accucheck; Complete Time: 20:20 [facility] 02/19 19:35 Order name: IV Saline Lock - Large Bore; Complete Time: 22:33 [facility] 02/19 20:51 Order name: CKMB Creatine Kinase MB [facility]CO EC:53 Rate is 110 beats/min. Rhythm is regular, Sinus tachycardia. QRS [place] is Normal. DE tw4 interval is normal. QRS interval is normal. QT interval is normal. No Q waves. T waves are Normal. T waves are Flattened. No ST changes noted. Clinical impression: NSR w/ Non-specific ST/T Changes and Sinus tachycardia. Interpreted by me. Reviewed by me. Administered Medications: 20:30 Drug: NS 0.9% (30 ml/kg) 30 ml/kg Route: IV; Rate: bolus; Site: right antecubital; ea 22:34 Follow up: IV Status: Infusion continued upon admission; IV Intake: 1000ml ; IV Pause: ak1 02/19/2019 22:34; IV Pause Reason: Limited IV access/Medication interaction 23:08 Follow up: IV Status: Infusion continued upon admission ak1 20:38 Drug: DuoNeb (3:1) (2.5 mg - 0.5 mg) 3 ml Route: Nebulizer; ea 22:33 Follow up: Response: No adverse reaction ak1 21:19 Drug: HYDROcodone-acetaminophen 5 mg-325 mg 1 tabs Route: PO; ea 22:33 Follow up: Response: No adverse reaction ak1 21:22 Drug: LevaQUIN 500 mg Volume: 100 ml; Route: IVPB; Infused Over: 60 mins; Site: right ak1 forearm; 22:28 Follow up: IV Status: Completed infusion; IV Intake: 100ml ak1 22:28 Drug: AZITHromycin 500 mg Route: IVPB; Infused Over: 1 hrs; Site: right antecubital; ak1 23:08 Follow up: IV Status: Infusion continued upon admission ak1 Point of Care Testing: Blood Glucose: 20:23 Blood Glucose: 166 mg/dL; ak1 Ranges: Critical Glucose Levels:Adult <50 mg/dl or >400 mg/dl <40 mg/dl or >180 mg/dl Disposition: 02/19/19 21:06 Hospitalization ordered by Merlene Sotelo for Inpatient Admission. Preliminary diagnosis are Pneumonia due to other specified infectious organisms, Hypoxemia. - Bed requested for Telemetry/MedSurg (Inpatient). - Status is Inpatient Admission. ak1 - Condition is Stable. - Problem is new. - Symptoms have improved. UTI on Admission? No Signatures: Dispatcher [employer] EDJennyfer Gottlieb RN RN Aliyah Chen RN Shelli Recinos RN RN ak1 iRchelle Nogueira RN RN Ian Miranda MD MD tw4 Corrections: (The following items were deleted from the chart) 20:51 19:36 CKMB+C.LAB.BRZ ordered. [facility] EDMS 20:51 19:36 CREATINE PHOSPHOKINASE+C.LAB.BRZ ordered. [facility] EDCO 22:37 21:06 Hospitalization Ordered by Merlene Sotelo MD for Inpatient Admission. Preliminary dw diagnosis is Pneumonia due to other specified infectious organisms; Hypoxemia. Bed requested for Telemetry/MedSurg (Inpatient). Status is Inpatient Admission. Condition is Stable. Problem is new. Symptoms have improved. UTI on Admission? No. tw4 23:12 22:37 02/19/2019 21:06 Hospitalization Ordered by Merlene Sotelo MD for Inpatient ak1 Admission. Preliminary diagnosis is Pneumonia due to other specified infectious organisms; Hypoxemia. Bed requested for Telemetry/MedSurg (Inpatient). Status is Inpatient Admission. Condition is Stable. Problem is new. Symptoms have improved. UTI on Admission? No. dw
[2019-02-19 21:14] LABS: ALT/SGPT 46 U/L (12-78); AST/SGOT 31 U/L (15-37); Albumin 3.3 g/dL (3.4-5.0); Alkaline Phosphatase 143 U/L (45-117); BUN Blood Urea Nitrogen 31 mg/dL (7-18); Bicarbonate 21 mmol/L (21-32); Bilirubin Direct 0.4 mg/dL (0-0.2); Bilirubin Total 0.8 mg/dL (0.2-1.0); CKMB Creatine Kinase MB < 1.0 ng/mL (0.3-3.6); Creatine Phosphokinase 37 U/L (26-192); Glucose Level 136 mg/dL (74-106); Magnesium 1.9 mg/dL (1.8-2.4); NT PRO-BNP 756 pg/mL (<450); Potassium 3.4 mmol/L (3.5-5.1); Protein, Total 7.9 g/dL (6.4-8.2); Sodium Level 139 mmol/L (136-145); Troponin (Emerg Dept Use Only) < 0.02 ng/mL (0.0-0.045)
[2019-02-19] MEDS ORDERED: MAGNESIUM HYDROXIDE 8% 30 ML PO PRN (21:49)
[2019-02-19] MEDS ORDERED: ONDANSETRON 4 MG/2 ML VIAL IV PRN (21:49)
[2019-02-19] MEDS: NA CHLORIDE 0.9% 1,000 ML IV SCH (22:00)
[2019-02-19 23:33] VITALS: BMI 23.3
[2019-02-20] MEDS ORDERED: CLINDAMYCIN INJ 600 MG in NA CHLORIDE 0.9% 50 ML IV SCH (01:00)
[2019-02-20] MEDS ORDERED: HYDROMORPHONE HCL 0.5 MG/0.5 ML INJ IV PRN (01:07)
[2019-02-20] MEDS ORDERED: CLINDAMYCIN 600MG/D5W 600 MG/50 ML BAG IV ONE (01:16)
[2019-02-20] MEDS: IPRATROPIUM BROM 0.5MG/2.5ML NEB SCH ×4 (02:00→20:35)
[2019-02-20] MEDS: ALBUTEROL 2.5 MG/3 ML NEB SOL NEB SCH ×4 (02:00→20:35)
[2019-02-20 05:15] LABS: Absolute Lymphocytes (CBC) 0.8 K/uL (0.7-4.9); Basophils % 0.2 % (0-1.3); Hematocrit 34.9 % (36.0-45.0); Lymphocytes % 4.2 % (15.3-44.8); MPV 8.1 fL (7.6-11.3); RBC Red Blood Cell Count 4.03 M/uL (3.86-4.86)
[2019-02-20 05:22] LABS: Albumin 2.5 g/dL (3.4-5.0); Magnesium 1.8 mg/dL (1.8-2.4); Phosphorus 2.8 mg/dL (2.5-4.9); Potassium 3.8 mmol/L (3.5-5.1); Protein, Total 6.3 g/dL (6.4-8.2)
[2019-02-20] MEDS ORDERED: HYDROMORPHONE HCL 0.5 MG/0.5 ML INJ IV ONE (05:47)
[2019-02-20] MEDS ORDERED: POTASSIUM CL SA 10 MEQ TAB PO ONE (07:00)
[2019-02-20] MEDS ORDERED: MAGNESIUM SULFATE 1 gm IVPB 1 GM/100 ML BAG IV ONE (07:00)
--- NOTE | 2019-02-20 08:22 | P.HP ---
Certification for Inpatient Patient admitted to: Inpatient With expected LOS: >2 Midnights Patient will require the following post-hospital care: Home Health Services Practitioner: I am a practitioner with admitting privileges, knowledge of patient current condition, hospital course, and medical plan of care. Services: Services provided to patient in accordance with Admission requirements found in Title 42 Section 412.3 of the Code of Federal Regulations Patient History Date of Service: 02/19/19 Reason for admission: Hypoxemia with pneumonia History of Present Illness: Patient is an 88-year-old female came to the hospital with shortness of breath. Patient was found to be hypoxic. Patient also had a questionable lower lobe pneumonia. Patient has chronic lung changes with mainly emphysematous changes. There looked to be bilateral lower lobe infiltrates. Patient was satting 86% on room air on arrival to the ER. After 2 L patient's oxygen saturations increased to 92%. Patient been feeling poorly since Wednesday. Patient's daughter has been trying to get her to come to the hospital for the last few days bed patient was done receptive to this. Her was just admitted to the hospital a couple of days ago. Since she was not improving and she had multiple people trying to encourage her to go to the hospital the daughter brought her into the ER reluctantly. Findings as mentioned above. Patient will be admitted to the hospital. Patient may need CT scan imaging to further evaluate the infiltrates. Allergies Penicillins Allergy (Severe, Verified 02/19/19 23:48) UNKNOWN pregabalin [From Lyrica] Allergy (Verified 02/19/19 23:48) Unknown tramadol Allergy (Verified 02/19/19 23:48) suicidal, depression moon Allergy (Uncoded 04/11/17 13:51) Unknown Home Medications: Aspirin Chewable [Aspirin Chewable*] 81 mg PO DAILY 02/20/19 Duloxetine HCl 30 mg PO BID 02/20/19 Hydrocodone/Acetaminophen [Hydrocodone-Acetamin 10-325 mg] 0.5 tab PO Q6HR 02/20 Ibuprofen 800 mg PO PRN PRN 02/20/19 Lansoprazole 15 mg PO PRN PRN 02/20/19 Multivitamin [One-Daily Multi-Vitamin] 1 tab PO DAILY 02/20/19 Pramipexole Di-HCl [Mirapex] 2 tab PO BEDTIME 02/20/19 Rivastigmine 1 patch TD DAILY 02/20/19 hydrOXYzine pamoate [Hydroxyzine Pamoate] 25 mg PO BEDTIME 02/20/19 - Past Medical/Surgical History Has patient received pneumonia vaccine in the past: Yes Diabetic: No -: depression -: gerd -: insomia -: lymphoma -: neuropathy -: restless legs syndrome -: pacemaker Past Surgical History: Patient denies surgical history - Family History Father Family History: Reviewed- Non-Contributory - Social History Smoking Status: Former smoker Place of Residence: [facility] Review of Systems 10-point ROS is otherwise unremarkable Physical Examination - Vital Signs Temperature: 98.1 F Blood Pressure: 115/56 Pulse: 100 Respirations: 18 Pulse Ox (%): 91 - Physical Exam General: Alert, In no apparent distress, Oriented x3 HEENT: Atraumatic, PERRLA, Mucous membr. moist/pink, EOMI, Sclerae nonicteric Neck: Supple, 2+ carotid pulse no bruit, No LAD, Without JVD or thyroid abnormality Respiratory: Diminished, Rhonchi/gurgles Cardiovascular: Regular rate/rhythm, Normal S1 S2, No murmurs Gastrointestinal: Normal bowel sounds, Soft and benign, Non-distended, No tenderness Musculoskeletal: No clubbing, No swelling, No tenderness Integumentary: No rashes Neurological: Normal speech, Normal tone, Sensation intact, Cranial nerves 3-12 intact, Normal affect, Abnormal gait, Abnormal strength Lymphatics: No axilla or inguinal lymphadenopathy - Studies Laboratory Data (last 24 hrs) 02/19/19 20:35: PT 12.2, INR 1.04 02/19/19 20:35: WBC 19.3 H, Hgb 14.9, Hct 45.0, Plt Count 323 02/19/19 20:35: Sodium 139, Potassium 3.4 L, BUN 31 H, Creatinine 1.81 H, Glucose 136 H, Magnesium 1.9 D, Total Bilirubin 0.8, AST 31, ALT 46, Alkaline Phosphatase 143 H Microbiology Data (last 24 hrs): 02/19/19 20:35 Blood - Blood Anaerobic Blood Culture - Final 02/19/19 21:15 Blood - Blood Anaerobic Blood Culture - Final Assessment & Plan - Problems (Diagnosis) (1) Pneumonia of both lower lobes Current Visit: Yes Status: Acute (2) Hypoxia Current Visit: Yes Status: Acute (3) Chronic obstructive pulmonary disease (COPD) Current Visit: Yes Status: Acute (4) Neuropathy Current Visit: Yes Status: Acute (5) History of lymphoma Current Visit: Yes Status: Acute (6) Acute kidney failure Current Visit: Yes Status: Acute - Plan 1. Continue with IV antibiotics 2. Awaiting sputum and blood culture 3. Repeat chest x-ray 4. Will proceed with CT scan of the chest if pneumonia is not improved 5. Pulmonary consultation 6. Continue with nebs 7. O2 per protocol 8. Continue with gentle hydration 9. Repeat labs including CBC and renal function in a.m. 10. GI and DVT prophylaxis - Advance Directives Does patient have a Living Will: Yes Does patient have a Durable POA for Healthcare: Yes
[2019-02-20] MEDS ORDERED: PANTOPRAZOLE 40MG TABLET PO PRN (08:23)
[2019-02-20] MEDS ORDERED: ENOXAPARIN 40 MG/0.4 ML SQ SCH (09:00)
[2019-02-20] MEDS: METHYLPREDNISOLONE 125 MG INJ IV SCH ×3 (09:06→17:06)
[2019-02-20] MEDS: MULTIVITAMIN TAB PO SCH (09:07)
[2019-02-20] MEDS: DULOXETINE 30 MG CAP PO SCH ×2 (09:07→22:26)
[2019-02-20] MEDS: RIVASTIGMINE 4.6 MG/24 HR PATCH TD SCH (09:07)
[2019-02-20] MEDS: ASPIRIN 81 MG CHEWABLE TABLET PO SCH (09:07)
--- NOTE | 2019-02-20 10:18 | EKG ---
Test Date: 2019-02-19 Test Time: 19:27:33 Embedded Linux Developer: PATTY MEASUREMENT RESULTS: Intervals: Rate: 110 WI: 144 QRSD: 80 QT: 334 QTc: 452 [place]: P: 84 WI: 144 QRS: 79 T: 69 INTERPRETIVE STATEMENTS: Sinus tachycardia Otherwise normal ECG Compared to ECG 06/04/2018 10:58:07 Sinus rhythm no longer present Electronically Signed On 02-20-19 10:18:53 CDT by José Cifuentes
[2019-02-20] MEDS: NA CHLORIDE 0.9% 1,000 ML IV SCH (11:17)
[2019-02-20] MEDS: HYDROCODONE/APAP 10/325 TAB PO SCH ×2 (11:18→17:04)
[2019-02-20] MEDS ORDERED: predniSONE 10 MG TAB PO SCH (21:00)
[2019-02-20] MEDS ORDERED: hydrOXYzine HCl 25 MG TAB PO SCH (21:00)
[2019-02-20] MEDS ORDERED: HOME MED 1 EA UNK (Hydroxyzine Pamoate [Hydroxyzine Pamoate] 25 MG) PO SCH (21:00)
[2019-02-20] MEDS: BISACODYL E.C. 5 MG TAB PO PRN (22:26)
[2019-02-20] MEDS: Levofloxacin 250mg IV 250 MG/50 ML BAG IV SCH (22:26)
[2019-02-20] MEDS: PRAMIPEXOLE 0.25 MG TAB PO SCH (22:45)
[2019-02-20] MEDS ORDERED: ENOXAPARIN 30 MG/0.3 ML SQ SCH (23:00)
[2019-02-20] MEDS ORDERED: ALPRAZOLAM 0.25 MG TABLET PO ONE (23:10)
[2019-02-21] MEDS: ALBUTEROL 2.5 MG/3 ML NEB SOL NEB SCH ×4 (02:00→20:15)
[2019-02-21] MEDS: IPRATROPIUM BROM 0.5MG/2.5ML NEB SCH ×4 (02:00→20:15)
[2019-02-21] MEDS: HYDROCODONE/APAP 10/325 TAB PO SCH ×4 (03:41→17:45)
[2019-02-21 06:06] LABS: Magnesium 2.2 mg/dL (1.8-2.4); Potassium 3.8 mmol/L (3.5-5.1)
[2019-02-21] MEDS ORDERED: POTASSIUM 25 MEQ EFFERV TAB PO ONE (09:00)
--- NOTE | 2019-02-21 09:25 | RAD REPORT ---
EXAM DESCRIPTION: RAD - Chest Pa And Lat (2 Views) - 02/21/2019 9:14 am CLINICAL HISTORY: pneumonia Chest pain. COMPARISON: Chest Single View dated 02/19/2019; Chest Single View dated 06/04/2018; Chest Single View dated 03/19/2017; Chest Pa And Lat (2 Views) dated 08/12/2016 FINDINGS: Diffuse COPD is present. Slight worsening in bibasilar lung infiltrate pattern is seen sin ce the comparative study. The heart is normal in size. Dual lead pacer device is in place. IMPRESSION: Slight worsening in bibasilar pneumonia pattern since 02/19/2019.
[2019-02-21] MEDS: MULTIVITAMIN TAB PO SCH (09:44)
[2019-02-21] MEDS: DULOXETINE 30 MG CAP PO SCH ×2 (09:45→20:42)
[2019-02-21] MEDS: RIVASTIGMINE 4.6 MG/24 HR PATCH TD SCH (09:45)
[2019-02-21] MEDS: predniSONE 10 MG TAB PO SCH (09:45)
[2019-02-21] MEDS: ASPIRIN 81 MG CHEWABLE TABLET PO SCH (09:45)
[2019-02-21] MEDS: ACETAMINOPHEN 500 MG TAB PO PRN (10:53)
--- NOTE | 2019-02-21 13:12 | PN ---
Date of Progress Note: 02/21/2019 Subjective: Patient was seen this morning for followup. She was lying in bed, not in distress. Elsie elena reviewed her hospital chart. The patient says she started to get some cough, chest congestion, h oarseness of voice, but did not have any fever. Did not cough up any mucus. She had significant gen eralized weakness and feeling tired with all these symptoms, so she was brought into the emergency ro om. After she was evaluated in the ER, she was admitted to the hospital with pneumonia problem. Sin ce her admission to the hospital, patient reports that her condition has improved with the treatment provided so far. This morning, she denied any other specific complaints. No chest pain. No shortne ss of breath. Objective: Vital Signs: Reviewed. HEENT: Unremarkable. Lungs: Clear to auscultation except very minimum basal rales present. Heart: Sounds normal. Abdomen: Soft. Bowel sounds normal. No guarding, rigidity, tenderness, or distention. Extremities: No leg edema. Neuro: No focal neurological deficits. Laboratory Data: Sodium 143, potassium 3.8, chloride 113, bicarb 22, BUN 24, creatinine 1.07, glucos e 205. Impression: 1.Pneumonia. 2.Peripheral neuropathy. 3.Depression. 4.Restless legs syndrome. 5.Gastroesophageal reflux disease. Plan: We will go ahead and continue current antibiotics. Blood culture has remained negative so far . We will repeat chest x-ray today. Repeat blood work tomorrow morning. Currently, she is on Levaq uin. We will continue that. Physical therapy to help with ambulation. Her glucose is elevated due to prednisone and we will consider reducing the dose probably tomorrow. I will see her tomorrow for followup. CHUY/MODL Voice ID: [id number] Report ID: [id number]
[2019-02-21] MEDS: hydrOXYzine HCl 25 MG TAB PO PRN (20:42)
[2019-02-21] MEDS: PRAMIPEXOLE 0.25 MG TAB PO SCH (20:42)
[2019-02-21] MEDS: Levofloxacin 250mg IV 250 MG/50 ML BAG IV SCH (20:42)
[2019-02-21] MEDS: BISACODYL E.C. 5 MG TAB PO PRN (20:42)
[2019-02-22] MEDS: ALBUTEROL 2.5 MG/3 ML NEB SOL NEB SCH ×4 (01:25→20:30)
[2019-02-22] MEDS: IPRATROPIUM BROM 0.5MG/2.5ML NEB SCH ×4 (01:25→20:30)
[2019-02-22] MEDS: HYDROCODONE/APAP 10/325 TAB PO SCH ×5 (05:38→20:39)
[2019-02-22 05:53] LABS: Absolute Lymphocytes (CBC) 1.9 K/uL (0.7-4.9); Basophils % 0.2 % (0-1.3); Lymphocytes % 9.7 % (15.3-44.8); MPV 7.9 fL (7.6-11.3)
[2019-02-22 06:20] LABS: Albumin 2.5 g/dL (3.4-5.0); Bilirubin Total 0.3 mg/dL (0.2-1.0); Magnesium 2.2 mg/dL (1.8-2.4); Potassium 3.7 mmol/L (3.5-5.1)
[2019-02-22 07:02] LABS: Blood Morphology Comment NOT SEEN (NOT SEEN); Platelet Estimate INCR; Toxic Granulation 1+
[2019-02-22] MEDS: MULTIVITAMIN TAB PO SCH (08:47)
[2019-02-22] MEDS: ASPIRIN 81 MG CHEWABLE TABLET PO SCH (08:47)
[2019-02-22] MEDS: DULOXETINE 30 MG CAP PO SCH ×2 (08:47→20:39)
[2019-02-22] MEDS: RIVASTIGMINE 4.6 MG/24 HR PATCH TD SCH (08:47)
[2019-02-22] MEDS: predniSONE 10 MG TAB PO SCH (08:47)
[2019-02-22] MEDS ORDERED: POTASSIUM 25 MEQ EFFERV TAB PO ONE (09:00)
[2019-02-22] MEDS: CEFTRIAXONE/SWI 1gm 1 GM/10 ML SYR IV SCH ×2 (14:30→20:38)
[2019-02-22] MEDS: BISACODYL E.C. 5 MG TAB PO PRN (16:21)
[2019-02-22] MEDS: Levofloxacin 250mg IV 250 MG/50 ML BAG IV SCH (20:38)
[2019-02-22] MEDS: PRAMIPEXOLE 0.25 MG TAB PO SCH (20:39)
[2019-02-23] MEDS: MAGNESIUM HYDROXIDE 8% 30 ML PO PRN ×2 (00:03→08:57)
--- NOTE | 2019-02-23 00:34 | PN ---
Date of Progress Note: 02/22/2019 Subjective: Patient was seen this morning for followup. No new complaints or problems reported. Ov erall, she feels better and looks better compared to yesterday. Objective: Vital Signs: Reviewed. HEENT: Examination unremarkable. Lungs: Diminished air entry in the lower lung mcnally, not in respiratory distress. Heart: Heart sounds normal. Abdomen: Soft. Bowel sounds normal. No guarding, rigidity, tenderness, or distention. Extremities: No leg edema. Neuro: No focal neurological deficits. Laboratory Data: Reviewed. Chest x-ray from yesterday reviewed. Impression: 1.Pneumonia. 2.Gastroesophageal reflux disease. 3.Peripheral neuropathy. Plan: We will continue current medication except we will change antibiotics. We will start the pritesh ent on Levaquin and I will continue patient's Levaquin and add ceftriaxone. I will see her tomorrow for followup. Physical Therapy to continue to work with the patient. Chest x-ray from yesterday had shown slight increase in lung markings. We need to keep in mind about the possibility of worsening of pneumonia as radiologist has reported, but considering patient's improvement noted clinically, I believe that radiological picture is lagging behind the clinical pict ure. CHUY/MODL Voice ID: [id number] Report ID: [id number]
[2019-02-23] MEDS: ALBUTEROL 2.5 MG/3 ML NEB SOL NEB SCH ×4 (01:40→20:00)
[2019-02-23] MEDS: IPRATROPIUM BROM 0.5MG/2.5ML NEB SCH ×4 (01:40→20:00)
[2019-02-23] MEDS: HYDROCODONE/APAP 10/325 TAB PO SCH ×5 (04:55→23:47)
[2019-02-23 06:04] LABS: Potassium 4.2 mmol/L (3.5-5.1)
[2019-02-23] MEDS: CEFTRIAXONE/SWI 1gm 1 GM/10 ML SYR IV SCH ×2 (08:58→21:08)
[2019-02-23] MEDS: predniSONE 10 MG TAB PO SCH (08:58)
[2019-02-23] MEDS: ASPIRIN 81 MG CHEWABLE TABLET PO SCH (08:58)
[2019-02-23] MEDS: DULOXETINE 30 MG CAP PO SCH ×2 (08:59→21:08)
[2019-02-23] MEDS: BISACODYL E.C. 5 MG TAB PO PRN (08:59)
[2019-02-23] MEDS: MULTIVITAMIN TAB PO SCH (08:59)
[2019-02-23] MEDS: RIVASTIGMINE 4.6 MG/24 HR PATCH TD SCH (09:00)
--- NOTE | 2019-02-23 14:57 | RAD REPORT ---
EXAM DESCRIPTION: RAD - Chest Pa And Lat (2 Views) - 02/23/2019 2:14 pm CLINICAL HISTORY: Pneumonia COMPARISON: February 21, February 19 TECHNIQUE: PA and lateral views of the chest were obtained. FINDINGS: The lungs are fibrotic. Slight flattening of the diaphragm noted. Interstitial and alveol ar opacities superimposed on the baseline fibrotic pattern continue to show some slight progression f rom the prior imaging. Progression is mostly in the left base. The progression is minimal but felt to be a true progression. Failure/ volume overload are not suspected. Pacemaker remains in place. No ne w tube or line. Biapical scarring changes are stable. Heart size is normal and central vasculature is within normal limits. No pleural effusion or pneumothorax seen. No acute bony finding noted. No a ortic abnormality. IMPRESSION: Bilateral pneumonia changes are again noted showing some minimal worsening from February 21r d.
[2019-02-23] MEDS ORDERED: BISACODYL 10 MG RECTAL SUPP PR ONE (16:52)
--- NOTE | 2019-02-23 20:54 | PN ---
Date of Progress Note: 02/23/2019 Subjective: Patient was seen this morning for followup. No new complaints or problems reported by minnie wellington. She is overall feeling much better and looks better since yesterday. Objective: Vital Signs: Reviewed. HEENT: Unremarkable. Lungs: Bilateral good equal air entry. No rhonchi. No rales. Heart: Sounds normal. Abdomen: Soft. Bowel sounds normal. No guarding, rigidity, tenderness, or distention. Extremities: No leg edema. Impression: 1.Pneumonia. 2.Peripheral neuropathy. 3.Constipation. Plan: Patient has not had a bowel movement, did not respond to milk of magnesia yesterday and today, so we will give Dulcolax rectal suppository. We will continue antibiotic, which was changed yesterd ay. Repeat chest x-ray later today and repeat blood work tomorrow morning. Depending on chest x-ray results and blood work results, we will decide if she is stable for discharge tomorrow or not. Kingsley hernandez were discussed with the patient and her daughter, who was at bedside. CHUY/MODL Voice ID: [id number] Report ID: [id number]
[2019-02-23] MEDS: PRAMIPEXOLE 0.25 MG TAB PO SCH (21:08)
[2019-02-23] MEDS: Levofloxacin 250mg IV 250 MG/50 ML BAG IV SCH (21:08)
[2019-02-23] MEDS: hydrOXYzine HCl 25 MG TAB PO PRN (21:11)
[2019-02-24] MEDS: IPRATROPIUM BROM 0.5MG/2.5ML NEB SCH ×4 (02:00→20:24)
[2019-02-24] MEDS: ALBUTEROL 2.5 MG/3 ML NEB SOL NEB SCH ×4 (02:00→20:34)
[2019-02-24] MEDS: HYDROCODONE/APAP 10/325 TAB PO SCH ×5 (05:19→21:34)
[2019-02-24 06:12] LABS: Absolute Lymphocytes (CBC) 2.8 K/uL (0.7-4.9); Basophils % 0.1 % (0-1.3); Hematocrit 37.1 % (36.0-45.0); Lymphocytes % 19.9 % (15.3-44.8); MPV 7.7 fL (7.6-11.3); RBC Red Blood Cell Count 4.37 M/uL (3.86-4.86)
[2019-02-24 07:33] LABS: Magnesium 2.1 mg/dL (1.8-2.4)
[2019-02-24] MEDS: CEFTRIAXONE/SWI 1gm 1 GM/10 ML SYR IV SCH ×2 (09:30→21:00)
[2019-02-24] MEDS: MULTIVITAMIN TAB PO SCH (09:31)
[2019-02-24] MEDS: predniSONE 10 MG TAB PO SCH (09:31)
[2019-02-24] MEDS: DULOXETINE 30 MG CAP PO SCH ×2 (09:31→21:37)
[2019-02-24] MEDS: ASPIRIN 81 MG CHEWABLE TABLET PO SCH (09:31)
[2019-02-24] MEDS: RIVASTIGMINE 4.6 MG/24 HR PATCH TD SCH (09:32)
[2019-02-24] MEDS: PRAMIPEXOLE 0.25 MG TAB PO SCH (21:36)
[2019-02-24] MEDS: Levofloxacin 250mg IV 250 MG/50 ML BAG IV SCH (21:37)
[2019-02-24] MEDS: hydrOXYzine HCl 25 MG TAB PO PRN (21:37)
[2019-02-24] MEDS ORDERED: NA CHLORIDE 0.9% 50 ML ONE (21:47)
--- NOTE | 2019-02-24 22:10 | PN ---
Date of Progress Note: 02/24/2019 Subjective: Patient was seen this morning for followup. No new complaints or problems reported by p amish lying. She was feeling much better. Objective: Vital Signs: Reviewed. HEENT: Unremarkable. Lungs: Clear to auscultation. Heart: Sounds normal. Abdomen: Soft. Bowel sounds normal. No guarding, rigidity, tenderness, or distention. Extremities: No leg edema. Laboratory Data: White count 14.3 yesterday, and day before yesterday, it was 19.1. Hemoglobin 12.7 and platelet count of 431. Sodium 142, potassium 5, chloride 107, bicarb 27, BUN 16, creatinine 0.9 4, glucose 85. Impression: 1.Pneumonia. 2.Peripheral neuropathy. 3.Gastroesophageal reflux disease. 4.Thrombocytosis, secondary. Plan: Patient's elevated platelet count is reactive in nature. No need for any further intervention for that. Pneumonia seems to be improving clinically. We will repeat chest x-ray tomorrow. WBC co unt is improving as well and I discussed with patient regarding plan of treatment, which is to repeat another chest x-ray tomorrow morning and possible discharge to go home tomorrow depending on her condition, chest x-ray result, etc. CHUY/MODL Voice ID: [id number] Report ID: [id number]
[2019-02-25] MEDS: ALBUTEROL 2.5 MG/3 ML NEB SOL NEB SCH ×2 (01:35→07:41)
[2019-02-25] MEDS: IPRATROPIUM BROM 0.5MG/2.5ML NEB SCH ×2 (01:35→07:41)
[2019-02-25 04:28] VITALS: TEMP 97.6
[2019-02-25 05:00] VITALS: O2SAT 95
[2019-02-25] MEDS: HYDROCODONE/APAP 10/325 TAB PO SCH ×3 (05:29→11:07)
[2019-02-25] MEDS: DULOXETINE 30 MG CAP PO SCH (08:19)
[2019-02-25] MEDS: RIVASTIGMINE 4.6 MG/24 HR PATCH TD SCH (08:19)
[2019-02-25] MEDS: ASPIRIN 81 MG CHEWABLE TABLET PO SCH (08:20)
[2019-02-25] MEDS: CEFTRIAXONE/SWI 1gm 1 GM/10 ML SYR IV SCH (08:21)
[2019-02-25] MEDS: predniSONE 10 MG TAB PO SCH (08:21)
[2019-02-25] MEDS: MULTIVITAMIN TAB PO SCH (08:24)
[2019-02-25] MEDS: ACETAMINOPHEN 500 MG TAB PO PRN (09:24)
--- NOTE | 2019-02-25 10:56 | RAD REPORT ---
EXAM DESCRIPTION: Danyel Lizama And Lat (2 Views)02/25/2019 10:41 am CLINICAL HISTORY: Cough COMPARISON: February 23, 2019 FINDINGS: Lungs are hyperaerated. Mild to moderate bilateral pulmonary opacities without significant change. Heart is normal size. Pacemaker leads in place IMPRESSION: No change in the bilateral pneumonia
[2019-02-25] MEDS: BISACODYL E.C. 5 MG TAB PO PRN (11:08)
[2019-02-25 14:12] VITALS: BP 159/77
--- NOTE | 2019-02-26 04:41 | DS ---
Date of Discharge: 02/25/2019 Disposition: Discharged to go back to [facility]. Physical Examination: HEENT: Unremarkable. Lungs: Clear to auscultation. Heart: Sounds normal. Abdomen: Soft. Bowel sounds normal. No guarding, rigidity, tenderness, or distention. Extremities: No leg edema. Discharge Medication And Instructions: Continue all prior home medications. Levaquin 250 mg p.o. da soto for 10 days and cefuroxime 250 mg p.o. twice a day for 10 days. Take it with food. Followup: Follow up at my office a week after next. Laboratory Data: Initial white count 19.3, hemoglobin 14.9, platelets 323. Last white count today 1 4.3, hemoglobin 12.7, platelets 431. Last chemistry yesterday: Sodium 142, potassium 5, chloride 10 7, bicarb 27, BUN 16, creatinine 0.94, glucose 85. Upon admission, BUN 30, creatinine 1.3. Hospital Course: Ms. Lewis is an 88-year-old pleasant female patient admitted to the hospital with pn eumonia problem. Please see dictated H and P for more information. Patient came into emergency room on 02/19/2019 and was evaluated in the ER, admitted to the hospital with pneumonia. She was started on IV antibiotics. Home medications were continued. White count was 19 and for 2 to 3 days, white count did not improve, so I had to change antibiotics, and with ceftriaxone and Levaquin combination, she started to show improvement. She started to ambulate. Repeat chest x-ray done today, results r eviewed. Patient is clinically feeling much better in last 3 days. She is ambulating well and has a good appetite. Does not require any supplemental oxygen. Today, she was discharged to go home in s table condition. Final Diagnoses: 1.Pneumonia. 2.Peripheral neuropathy. 3.Anemia. 4.Gastroesophageal reflux disease. CHUY/MODL Voice ID: [id number] Report ID: [id number]
== END 2019-02-25 13:42 | disposition home or self-care (01) | DRG 194 ==
LOC: ER 19:13 → ERHOLD 22:16 → 2ND 23:00
PROVIDERS: ADMIT Hospitalist; ATTEND Internal Medicine
DX: J18.1 Lobar pneumonia, unspecified organism (principal); J44.0 Chronic obstructive pulmonary disease with (acute) lower respiratory infection; N17.9 Acute kidney failure, unspecified; R09.02 Hypoxemia; G62.9 Polyneuropathy, unspecified; K21.9 Gastro-esophageal reflux disease without esophagitis; G25.81 Restless legs syndrome; F32.9 Major depressive disorder, single episode, unspecified; D69.59 Other secondary thrombocytopenia; D64.9 Anemia, unspecified; K59.00 Constipation, unspecified; Z79.82 Long term (current) use of aspirin; Z87.891 Personal history of nicotine dependence; Z95.0 Presence of cardiac pacemaker; Z88.0 Allergy status to penicillin
CPT/HCPCS: 36415; 71045; 71046; 80048; 80053; 80061; 80076; 82550; 82553; 82962; 83605; 83735; 83880; 84100; 84145; 84484; 85025; 85610; 87040; 93005; 94640; 94760; 97116; 97163; 99285; J0456; J0696; J1170; J1650; J2930; J3475; J7030; J7512

== ENCOUNTER 2019-06-18 08:13 | Emergency (ER) | payer OTHER ==
--- OUTSIDE RECORDS SUMMARY | 2019-06-18 08:15 | XMS REPORT | Summary of Care ---
:1930 Author Organization [facility] Address [address] [place] [id number] Care Team Providers Name Role Phone Jorge Tracey Brendan Primary Care Provider Reason for Visit Reason Comments Rx Concern/Question Encounter Details Date Type Department Care Team Description 03/20/2019 Telephone [facility] Jj Ortiz, Rx Concern/Question Neurology-[facility] SIN[facility] [address] [facility], [address] [place] [address]. [address] [place] [phone] Allergies Active Allergy Reactions Severity Noted Date Comments Penicillins Anaphylaxis High 04/08/2016 Pregabalin Other - See comments High 04/08/2016 Suicidal ideation Trazodone Other - See comments High 04/08/2016 congnition documented as of this encounter (statuses as of 03/20/2019) Medications Medication Sig Dispensed Refills Start Date End Date Status umeclidinium-vilant Inhale 1 0 10/31/2015 Active luzmaria (ANORO Puff. ELLIPTA) 62.5-25 mcg/actuation inhalation disk aspirin 81 mg EC Take 81 mg by 0 11/30/2017 Active tablet mouth. DULoxetine 30 mg TAKE ONE 0 05/25/2018 Active capsule CAPSULE BY MOUTH TWICE A DAY HYDROcodone-acetami 0 09/17/2018 Active nophen 10-325 mg tablet hydrOXYzine 25 mg TAKE ONE 1 09/12/2018 Active capsule CAPSULE BY MOUTH EVERY DAY ibuprofen 800 mg TAKE 1 TABLET 0 04/12/2017 Active tablet BY MOUTH TWICE A DAY NEEDED lansoprazole 15 mg Take 1 mg by 0 04/04/2016 Active capsule mouth. multivitamin Take 1 0 Active capsule capsule by mouth. pramipexole 0.125 Take 0.25 mg 0 Active mg tablet by mouth at bedtime. oxybutynin chloride Take 10 mg by 0 Active 5 mg tablet mouth daily. diflorasone 0.05 % as needed. 0 Active ointment gabapentin 300 mg Take 1 90 capsule 3 11/14/2018 Active capsuleIndications: capsule by Peripheral nerve mouth 3 disease (three) times daily. rivastigmine Apply 1 Patch 30 Patch 0 03/20/2019 Active (EXELON) 4.6 mg/24 to skin hr patch daily. rivastigmine 4.6 Apply 1 Patch 30 Patch 1 02/13/2019 03/20/2019 Discontinued mg/24 hr to skin patchIndications: daily. Late onset Alzheimer's disease without behavioral disturbance documented as of this encounter (statuses as of 03/20/2019) Active Problems Not on filedocumented as of this encounter (statuses as of 03/20/2019) Social History Tobacco Use Types Packs/Day Years Used Date Never Smoker Alcohol Use Drinks/Week oz/Week Comments No Sex Assigned at Date Recorded Not on file Job Start Date Occupation Industry Not on file Not on file Not on file Travel History Travel Start Travel End No recent travel history available. documented as of this encounter Last Filed Vital Signs Not on filedocumented in this encounter Plan of Treatment Health Maintenance Due Date Last Done Comments DTaP,Tdap,and Td Vaccines (1 - Tdap) 10[birth year]14/1949 Zoster Recombinant Vaccine (SHINGRIX) (1 of 2) 1982 Medicare Wellness Visit 1997 Osteoporosis Screening 1997 PNEUMOCOCCAL VACCINES 65+ (1 of 2 - PCV13) 1997 INFLUENZA VACCINE (#1) 2019 documented as of this encounter Results Not on filedocumented in this encounter Insurance Payer Benefit Plan Subscriber ID Effective Phone Address Type / Group Dates AETNA - AETNA MEBMPYKC 2018-[address] Medicare Adv MANAGED MEDICARE ADV nt [id number] [place] [address] documented as of this encounter
--- OUTSIDE RECORDS SUMMARY | 2019-06-18 08:15 | XMS REPORT | Summary of Care ---
:1930 Author Organization [facility] - Health Address [address] [place] [address] Care Team Providers Name Role Phone Jorge Tracey Primary Care Provider Encounter Details Date Type Department Care Team Description 03/27/2019 Orders Only [facility] Doctor Unassigned, No [address] [facility] [place] [address] [address] [place] [address] Allergies Active Allergy Reactions Severity Noted Date Comments Penicillins Anaphylaxis High 04/08/2016 Pregabalin Other - See comments High 04/08/2016 Suicidal ideation Trazodone Other - See comments High 04/08/2016 congnition documented as of this encounter (statuses as of 03/27/2019) Medications Medication Sig Dispensed Refills Start Date End Date Status umeclidinium-vilantero Inhale 1 Puff. 0 10/31/2015 Active l (ANORO ELLIPTA) 62.5-25 mcg/actuation inhalation disk aspirin 81 mg EC Take 81 mg by 0 11/30/2017 Active tablet mouth. DULoxetine 30 mg TAKE ONE CAPSULE 0 05/25/2018 Active capsule BY MOUTH TWICE A DAY HYDROcodone-acetaminop 0 09/17/2018 Active hen 10-325 mg tablet hydrOXYzine 25 mg TAKE ONE CAPSULE 1 09/12/2018 Active capsule BY MOUTH EVERY DAY ibuprofen 800 mg TAKE 1 TABLET BY 0 04/12/2017 Active tablet MOUTH TWICE A DAY NEEDED lansoprazole 15 mg Take 1 mg by 0 04/04/2016 Active capsule mouth. multivitamin capsule Take 1 capsule by 0 Active mouth. pramipexole 0.125 mg Take 0.25 mg by 0 Active tablet mouth at bedtime. oxybutynin chloride 5 Take 10 mg by 0 Active mg tablet mouth daily. diflorasone 0.05 % as needed. 0 Active ointment gabapentin 300 mg Take 1 capsule by 90 capsule 3 11/14/2018 Active capsuleIndications: mouth 3 (three) Peripheral nerve times daily. disease rivastigmine (EXELON) Apply 1 Patch to 30 Patch 0 03/20/2019 Active 4.6 mg/24 hr patch skin daily. documented as of this encounter (statuses as of 03/27/2019) Active Problems Not on filedocumented as of this encounter (statuses as of 03/27/2019) Social History Tobacco Use Types Packs/Day Years [...] (#1) 2019 documented as of this encounter Procedures Procedure Name Priority Date/Time Associated Diagnosis Comments EXTERNAL PROVIDER Routine 03/27/2019 12:01 AM CDT RECORDS documented in this encounter Results Not on filedocumented in this encounter Insurance Payer Benefit Plan Subscriber ID Effective Phone Address Type / Group Dates AET[employer] - A[employer]NA MEBMPYKC 2018-[address] Medicare Adv MANAGED MEDICARE ADV nt [id number] [place] [address] documented as of this encounter
--- OUTSIDE RECORDS SUMMARY | 2019-06-18 08:15 | XMS REPORT ---
:1930 Author Organization [facility] Address [address] [place] [address] Dr. Stevens [address] [place] [id number] Care Team Providers Name Role Phone Unavailable Unavailable Unavailable Problems This patient has no known problems. Allergies, Adverse Reactions, Alerts This patient has no known allergies or adverse reactions. Medications This patient has no known medications.
--- NOTE | 2019-06-18 09:05 | RAD REPORT ---
EXAM DESCRIPTION: CT - [id number] - 06/18/2019 8:48 am CLINICAL HISTORY: Fall, head and neck injury COMPARISON: April 2017 TECHNIQUE: Axial 5 mm thick images of the head were obtained. Axial 2 mm thick images of the cervic al spine were obtained with sagittal and coronal reconstruction images generated and reviewed. All CT scans are performed using dose optimization technique as appropriate and may include automated exposure control or mA/KV adjustment according to patient size. FINDINGS: No intracranial hemorrhage, mass, edema or acute intracranial finding. No suspicion for acute infarct ion. Moderate severity atrophy and chronic ischemic changes are present. Physiologic basal ganglia ca lcifications are present. Additional physiologic and arterial calcifications are present. Ventricles are in proportion to volume loss. Mastoid air cells and paranasal sinuses are clear. No globe or orbi t abnormality seen. Patient has a small to moderate-sized left parietal scalp hematoma. No foreign rosalio dy seen. Cervical bodies are normal in height. There is a minimal retrolisthesis of C5 relative to C4 and C6. Disc space narrowing is present throughout the cervical spine. This is most pronounced at C5-6 where there is near complete loss in disc height and advanced degenerative changes to the endplates. Patien t has dense calcification of the transverse ligament posterior to the dens. Prominent degenerative ch vasiliy involves the dens. This is not substantially different from 2017. No fracture or acute bony abno rmality. Left C3-4 bony foraminal encroachment present. There is bilateral bony foraminal encroachmen t at C5-6. Central canal detail is inherently limited. No paraspinal mass or hematoma. IMPRESSION: Moderate severity atrophy and chronic ischemic change similar to 2017. No acute intracra nial finding. Small a moderate sized posterior left parietal scalp hematoma. Underlying bone is intact. Prominent cervical spine degenerative change as detailed. No acute findings seen and pattern is simil ar to 2017.
--- NOTE | 2019-06-18 09:16 | RAD REPORT ---
EXAM DESCRIPTION: RAD - Chest Single View - 06/18/2019 8:49 am CLINICAL HISTORY: Syncope, chest pain COMPARISON: January 2019, June 2018 chest films ; June 2018 CT chest TECHNIQUE: AP portable chest image was obtained 0840 hours . FINDINGS: Interstitial fibrotic pattern is present not substantially different from comparison. This could mask early interstitial edema or infiltrate. No new mass or consolidation. Left subclavian pac emaker in place. Calcified apical calcifications and pleural thickening are present. There is focal calcific density in the left mid chest. This is progressive calcification of pleural b ased mass. This is potentially associated with a remote rib injury. Calcification is present when com paring back to the June 2018 imaging studies. Heart and vasculature are normal. No measurable pleural effusion and no pneumothorax. No acute bony a bnormality seen. No acute aortic findings suspected. IMPRESSION: Interstitial fibrotic lung pattern not substantially different from comparison. Mild int erstitial edema and infiltrate can be masked in this setting. Calcific density in the left midlung field is related to a pleural based mass. This may be reactive p leural changes from rib injury. The dense calcification would favor a benign etiology. The left midlung field calcific density is not an emergent finding. A follow-up outpatient CT chest s tudy could be performed to assure no growth in the soft tissue mass component.
[2019-06-18 09:20] LABS: Basophils % 0.7 % (0-1.3); Hematocrit 35.2 % (36.0-45.0); Lymphocytes % 30.8 % (15.3-44.8); MPV 7.4 fL (7.6-11.3)
[2019-06-18 09:25] LABS: Protime INR 0.92
[2019-06-18 09:38] LABS: ALT/SGPT 24 U/L (12-78); AST/SGOT 24 U/L (15-37); Albumin 3.9 g/dL (3.4-5.0); Alkaline Phosphatase 55 U/L (45-117); BUN Blood Urea Nitrogen 18 mg/dL (7-18); Bicarbonate 23 mmol/L (21-32); Bilirubin Direct 0.2 mg/dL (0-0.2); Bilirubin Total 0.5 mg/dL (0.2-1.0); Glucose Level 94 mg/dL (74-106); Magnesium 2.1 mg/dL (1.8-2.4); NT PRO-BNP 309 pg/mL (<450); Potassium 4.5 mmol/L (3.5-5.1); Protein, Total 6.3 g/dL (6.4-8.2); Sodium Level 137 mmol/L (136-145); Troponin (Emerg Dept Use Only) < 0.02 ng/mL (0.0-0.045)
[2019-06-18 10:03] LABS: Urine Blood NEGATIVE (NEG); Urine Glucose NEGATIVE (NEG); Urine Protein NEGATIVE (NEG); Urine Specific Gravity 1.015 (1.005-1.030)
--- NOTE | 2019-06-18 10:13 | ER ---
Nurse's Notes [facility] Name: Gracie Lewis Age: 88 yrs Sex: Female : 1930 Arrival Date: 06/18/2019 Time: 08:14 Bed 7 Private MD: Jacinta Tracey C Diagnosis: Contusion of unspecified part of head;Fall on same level from slipping, tripping and stumbling with subsequent striking against unspecified object Presentation: 06/18 08:35 Presenting complaint: Patient states: I was walking to the bathroom and the next thing la1 I remember I was hitting my head on the wall then I passed out, Pt at baseline mental status in ED exam room, reports LANTIGUA. Care prior to arrival: None. Mechanism of Injury: Fall. Trauma event details: Injury occurred in the [facility]. 08:35 Acuity: ZUNILDA 2 la1 08:35 Method Of Arrival: Wheelchair la1 08:39 Transition of care: patient was not received from another setting of care. Onset of la1 symptoms was June 18, 2019. Risk Assessment: Do you want to hurt yourself or someone else? Patient reports no desire to harm self or others. Initial Sepsis Screen: Does the patient meet any 2 criteria? No. Patient's initial sepsis screen is negative. Does the patient have a suspected source of infection? No. Patient's initial sepsis screen is negative. Triage Assessment: 10:22 General: Behavior is. la1 Historical: - Allergies: 08:38 moon; la1 08:38 Lyrica; la1 08:38 PENICILLINS; la1 08:38 tramadol; la1 - Home Meds: 08:38 aspirin 81 mg Oral chew 1 tab once daily [Active]; Cymbalta 30 mg Oral cpDR 2 caps once la1 daily [Active]; gabapentin 300 mg Oral cap 1 cap 3 times per day [Active]; hydrocodone-acetaminophen 10-325 mg Oral tab 0.5 tab every 6 hours [Active]; hydroxyzine HCl 25 mg Oral tab 1 tab 3 times per day [Active]; lanzaprozole 15 mg daily 15 mg before meals [Active]; Multi Vitamin Oral 1 tab daily [Active]; oxybutynin chloride 10 mg Oral tr24 once daily [Active]; rivastigmine tartrate 4.5 mg Oral cap 1 cap 2 times per day [Active]; - PMHx: 08:38 Depression; Gastric Reflux; GERD; insomnia; LYMPHOMA; neuropathy; restless leg syndrome;la1 - Immunization history: Last tetanus immunization: unknown. - Social history:: Smoking status: unknown. - Ebola Screening: : No symptoms or risks identified at this time. Screenin:37 Abuse screen: Denies threats or abuse. Nutritional screening: No deficits noted. la1 Tuberculosis screening: No symptoms or risk factors identified. Primary Survey: 08:36 NO uncontrolled hemorrhage observed. A: The patient is alert. Airway: patent, No la1 supplemental oxygen in use on arrival. Oral cavity: clear, Trachea midline. Breathing/Chest: Respiratory pattern: regular, Respiratory effort: spontaneous, unlabored, Breath sounds: clear, bilaterally. Circulation: Skin color: pink. Disability Alert. Exposure/Environment: A warming method has been applied: A warm blanket has been provided to the patient. 08:37 Reassessment Airway Airway Patent Breathing/Chest Respiratory pattern Regular la1 Respiratory effort Spontaneous Breath sounds Clear Circulation Color Leona Temperature Warm Disability Alert. 09:25 A: The patient is alert. Airway: patent, No supplemental oxygen in use on arrival. Oral la1 cavity: clear, Trachea midline. Breathing/Chest: Breath sounds: clear, bilaterally. Circulation: Skin color: pink, Skin temperature: warm. Disability Alert. Secondary Survey: 08:36 HEENT: Head Other hematoma noted to posterior scalp. la1 Assessment: 08:39 General: Appears in no apparent distress. Pain: Complains of pain in scalp. Neuro: la1 Level of Consciousness is awake, alert, obeys commands, Oriented to person, place, time, situation. Cardiovascular: Capillary refill < 3 seconds Patient's skin is warm and dry. Respiratory: Airway is patent Respiratory effort is even, unlabored, Respiratory pattern is regular, symmetrical, Breath sounds are clear bilaterally. GI: No signs and/or symptoms were reported involving the gastrointestinal system. : No signs and/or symptoms were reported regarding the genitourinary system. Vital Signs: 08:36 BP 131 / 100; Pulse 81; Resp 16; Temp 97.2; Pulse Ox 98% on R/A; la1 09:24 BP 167 / 75; Pulse 74; Resp 16; Pulse Ox 98% on R/A; la1 10:22 BP 141 / 67; Pulse 74; Resp 16; Pulse Ox 98% on R/A; la1 [place] Coma Score: 08:36 Eye Response: spontaneous(4). Verbal Response: oriented(5). Motor Response: obeys la1 commands(6). Total: 15. 08:56 Eye Response: spontaneous(4). Verbal Response: oriented(5). Motor Response: obeys pm1 commands(6). Total: 15. Trauma Score (Adult): 08:36 Eye Response: spontaneous(1); Verbal Response: oriented(1); Motor Response: obeys la1 commands(2); Systolic BP: > 89 mm Hg(4); Respiratory Rate: 10 to 29 per min(4); Mattie Score: 15; Trauma Score: 12 09:24 Eye Response: spontaneous(1); Verbal Response: oriented(1); Motor Response: obeys la1 commands(2); Systolic BP: > 89 mm Hg(4); Respiratory Rate: 10 to 29 per min(4); Mattie Score: 15; Trauma Score: 12 ED Course: 08:14 Patient arrived in ED. as 08:14 Jacinta Tracey MD is Private Physician. as 08:17 Fabrizio Dominguez NP is PHCP. pm1 08:17 Bert Rodriguez MD is Attending Physician. pm1 08:34 Adarsh Cook RN is Primary Nurse. la1 08:36 Triage completed. la1 08:37 Patient has correct armband on for positive identification. la1 08:39 Patient maintains SpO2 saturation greater than 95% on room air. la1 08:40 Thermoregulation: warm blanket given to patient. la1 08:48 CT completed. Patient tolerated procedure well. Patient moved back from CT. mw3 08:48 CT Head C Spine In Process Unspecified. EDMS 08:49 XRAY Chest (1 view) In Process Unspecified. EDMS 10:22 No provider procedures requiring assistance completed. IV discontinued, intact, la1 bleeding controlled, No redness/swelling at site. Pressure dressing applied. Administered Medications: No medications were administered Output: 10:22 Urine: 1ml (Voided); Total: 1ml. la1 Outcome: 10:12 Discharge ordered by MD. pm1 10:22 Discharged to home ambulatory. la1 10:22 Discharged to home via wheelchair. 10:22 Condition: stable 10: Condition: stable 10:22 Discharge instructions given to patient, family, Instructed on discharge instructions, follow up and referral plans. Demonstrated understanding of instructions, follow-up care. 10:23 Patient left the ED. la1 Signatures: Dispatcher [employer] Radha Mckeon Lee, RN RN la1 Fabrizio Dominguez NP [employer] pm1 Letha Tierney mw3
--- NOTE | 2019-06-18 10:13 | EDPHYS ---
Physician Documentation [facility] Name: Gracie Lewis Age: 88 yrs Sex: Female : 1930 Arrival Date: 06/18/2019 Time: 08:14 Bed 7 Private MD: Jacinta Tracey C ED Physician Bert Rodriguez HPI: 06/18 08:56 This 88 yrs old Female presents to ER via Wheelchair with complaints of Head pm1 Injury With LOC-Adult. 08:56 The patient or guardian reports Pain to back of head. Contusion to back left side of pm1 head. Context of injury: The problem was sustained at home, resulted from a fall, from a standing position, hit her head against the wall of bathroom. Onset: The symptoms/episode began/occurred just prior to arrival. Associated signs and symptoms: Loss of consciousness: This patient experience a loss of consciousness, the patient was "dazed", Pertinent negatives: double vision, nausea, neck pain, vomiting, weakness in extremities, generalized weakness. The patient has experienced similar episodes in the past, multiple falls. The patient has not recently seen a physician, the patient's primary care provider is Dr. Tracey. Patient in the restroom. She turned to face the bathroom door and fell backwards hitting her head against the wall. Patient presenting with pain to the back of her head. Patient was dazed. Uncertain LOC. No neck pain, chest pain, or shortness of breath. Historical: - Allergies: 08:38 moon; la1 08:38 Lyrica; la1 08:38 PENICILLINS; la1 08:38 tramadol; la1 - Home Meds: 08:38 aspirin 81 mg Oral chew 1 tab once daily [Active]; Cymbalta 30 mg Oral cpDR 2 caps once la1 daily [Active]; gabapentin 300 mg Oral cap 1 cap 3 times per day [Active]; hydrocodone-acetaminophen 10-325 mg Oral tab 0.5 tab every 6 hours [Active]; hydroxyzine HCl 25 mg Oral tab 1 tab 3 times per day [Active]; lanzaprozole 15 mg daily 15 mg before meals [Active]; Multi Vitamin Oral 1 tab daily [Active]; oxybutynin chloride 10 mg Oral tr24 once daily [Active]; rivastigmine tartrate 4.5 mg Oral cap 1 cap 2 times per day [Active]; - PMHx: 08:38 Depression; Gastric Reflux; GERD; insomnia; LYMPHOMA; neuropathy; restless leg syndrome;la1 - Immunization history: Last tetanus immunization: unknown. - Social history:: Smoking status: unknown. - Ebola Screening: : No symptoms or risks identified at this time. ROS: 08:56 Constitutional: Negative for fever, chills, and weight loss, Eyes: Negative for injury, pm1 pain, redness, and discharge, ENT: Negative for injury, pain, and discharge, Neck: Negative for injury, pain, and swelling, Cardiovascular: Negative for chest pain, palpitations, and edema, Respiratory: Negative for shortness of breath, cough, wheezing, and pleuritic chest pain, Abdomen/GI: Negative for abdominal pain, nausea, vomiting, diarrhea, and constipation, Back: Negative for injury and pain, MS/Extremity: Negative for injury and deformity, Skin: Negative for injury, rash, and discoloration. 08:56 Neuro: Positive for headache, Negative for numbness, tingling, weakness. Exam: 08:56 Constitutional: This is a well developed, well nourished patient who is awake, alert, pm1 and in no acute distress. 08:56 Eyes: Pupils equal round and reactive to light, extra-ocular motions intact. Lids and lashes normal. Conjunctiva and sclera are non-icteric and not injected. Cornea within normal limits. Periorbital areas with no swelling, redness, or edema. ENT: Nares patent. No nasal discharge, no septal abnormalities noted. Tympanic membranes are normal and external auditory canals are clear. Oropharynx with no redness, swelling, or masses, exudates, or evidence of obstruction, uvula midline. Mucous membranes moist. Neck: Trachea midline, no thyromegaly or masses palpated, and no cervical lymphadenopathy. Supple, full range of motion without nuchal rigidity, or vertebral point tenderness. No Meningismus. Chest/axilla: Normal chest wall appearance and motion. Nontender with no deformity. No lesions are appreciated. Cardiovascular: Regular rate and rhythm with a normal S1 and S2. No gallops, murmurs, or rubs. Normal PMI, no JVD. No pulse deficits. Respiratory: Lungs have equal breath sounds bilaterally, clear to auscultation and percussion. No rales, rhonchi or wheezes noted. No increased work of breathing, no retractions or nasal flaring. Abdomen/GI: Soft, non-tender, with normal bowel sounds. No distension or tympany. No guarding or rebound. No evidence of tenderness throughout. Back: No spinal tenderness. No costovertebral tenderness. Full range of motion. Skin: Warm, dry with normal turgor. Normal color with no rashes, no lesions, and no evidence of cellulitis. MS/ Extremity: Pulses equal, no cyanosis. Neurovascular intact. Full, normal range of motion. 08:56 Head/face: Noted is no obvious of injury or deformity except contusion, that is superficial, of the left side of the back of head. 08:56 Neuro: Orientation: is normal, Mentation: is normal, Motor: is normal, moves all fours, Sensation: is normal, no obvious gross deficits. Vital Signs: 08:36 BP 131 / 100; Pulse 81; Resp 16; Temp 97.2; Pulse Ox 98% on R/A; la1 09:24 BP 167 / 75; Pulse 74; Resp 16; Pulse Ox 98% on R/A; la1 10:22 BP 141 / 67; Pulse 74; Resp 16; Pulse Ox 98% on R/A; la1 Conway Coma Score: 08:36 Eye Response: spontaneous(4). Verbal Response: oriented(5). Motor Response: obeys la1 commands(6). Total: 15. 08:56 Eye Response: spontaneous(4). Verbal Response: oriented(5). Motor Response: obeys pm1 commands(6). Total: 15. Trauma Score (Adult): 08:36 Eye Response: spontaneous(1); Verbal Response: oriented(1); Motor Response: obeys la1 commands(2); Systolic BP: > 89 mm Hg(4); Respiratory Rate: 10 to 29 per min(4); Conway Score: 15; Trauma Score: 12 09:24 Eye Response: spontaneous(1); Verbal Response: oriented(1); Motor Response: obeys la1 commands(2); Systolic BP: > 89 mm Hg(4); Respiratory Rate: 10 to 29 per min(4); Mattie Score: 15; Trauma Score: 12 MDM: 08:26 Patient medically screened. pm1 09:58 Data reviewed: vital signs. Data interpreted: Pulse oximetry: on room air is 98 %. pm1 Interpretation: normal. 10:11 Counseling: I had a detailed discussion with the patient and/or guardian regarding: the pm1 historical points, exam findings, and any diagnostic results supporting the discharge/admit diagnosis, lab results, radiology results, the need for outpatient follow up, to return to the emergency department if symptoms worsen or persist or if there are any questions or concerns that arise at home. 06/18 08:40 Order name: Basic Metabolic Panel; Complete Time: 09:42 pm1 06/18 08:40 Order name: CBC with Diff; Complete Time: 09:42 pm1 06/18 08:40 Order name: LFT's; Complete Time: 09:42 pm1 06/18 08:40 Order name: Magnesium; Complete Time: 09:42 pm1 06/18 08:40 Order name: NT PRO-BNP; Complete Time: 09:42 pm1 06/18 08:40 Order name: PT-INR; Complete Time: 09:42 pm1 06/18 08:35 Order name: CT Head C Spine; Complete Time: 09:10 la1 06/18 08:40 Order name: Troponin (emerg Dept Use Only); Complete Time: 09:42 pm1 06/18 08:40 Order name: XRAY Chest (1 view); Complete Time: 09:20 pm1 06/18 08:40 Order name: EKG; Complete Time: 08:41 pm1 06/18 08:40 Order name: Cardiac monitoring; Complete Time: 08:59 pm1 06/18 08:40 Order name: EKG - Nurse/Tech; Complete Time: 09:00 pm1 06/18 08:40 Order name: IV Saline Lock; Complete Time: 09:00 pm1 06/18 09:47 Order name: Urine Dipstick--Ancillary (enter results); Complete Time: 10:10 em1 06/18 08:40 Order name: Labs collected and sent; Complete Time: 09:00 pm1 06/18 08:40 Order name: O2 Per Protocol; Complete Time: 09:00 pm1 06/18 08:40 Order name: O2 Sat Monitoring; Complete Time: 09:00 pm1 06/18 08:40 Order name: Urine Dipstick-Ancillary (obtain specimen); Complete Time: 09:26 pm1 Administered Medications: No medications were administered Disposition: 06/18/19 10:12 Discharged to Home. Impression: Contusion of unspecified part of head, Fall on same level from slipping, tripping and stumbling with subsequent striking against unspecified object. - Condition is Stable. - Discharge Instructions: Contusion, Head Injury, Adult, Fall Prevention in the Home. - Medication Reconciliation Form, Thank You Letter, Antibiotic Education, Prescription Opioid Use form. - Follow up: Emergency Department; When: As needed; Reason: Worsening of condition. Follow up: Private Physician; When: 2 - 3 days; Reason: Recheck today's complaints, Continuance of care, Re-evaluation by your physician. - Problem is new. - Symptoms have improved. Addendum: 06/20/2019 07:06 Co-signature as Attending Physician, Bert Rodriguez MD I agree with the assessment and c haro plan of care. Signatures: Dispatcher [employer] EDCT Bert Rodriguez MD MD cha Attema, Lee RN RN la1 Fabrizio Dominguez, PROTECTIVE SERVICES CASE WORKER PROTECTIVE SERVICES CASE WORKER pm1 Corrections: (The following items were deleted from the chart) 06/18 10:23 10:12 06/18/2019 10:12 Discharged to Home. Impression: Contusion of unspecified part of la1 head; Fall on same level from slipping, tripping and stumbling with subsequent striking against unspecified object. Condition is Stable. Forms are Medication Reconciliation Form, Thank You Letter, Antibiotic Education, Prescription Opioid Use. Follow up: Emergency Department; When: As needed; Reason: Worsening of condition. Follow up: Private Physician; When: 2 - 3 days; Reason: Recheck today's complaints, Continuance of care, Re-evaluation by your physician. Problem is new. Symptoms have improved. pm1
[2019-06-18 10:29] VITALS: TEMP 97.2; O2SAT 98
[2019-06-18 10:31] VITALS: BP 141/67
--- NOTE | 2019-06-19 07:08 | EKG ---
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
== END 2019-06-18 10:23 | disposition home or self-care (01) ==
LOC: ER 08:13
DX: S00.93XA Contusion of unspecified part of head, initial encounter (principal); W01.198A Fall on same level from slipping, tripping and stumbling with subsequent striking against other object, initial encounter; Y93.01 Activity, walking, marching and hiking; Y92.009 Unspecified place in unspecified non-institutional (private) residence as the place of occurrence of the external cause; Z88.0 Allergy status to penicillin; Z88.5 Allergy status to narcotic agent; Z88.8 Allergy status to other drugs, medicaments and biological substances; Z91.018 Allergy to other foods; Z79.82 Long term (current) use of aspirin; F32.9 Major depressive disorder, single episode, unspecified
CPT/HCPCS: 36415; 70450; 71045; 72125; 80048; 80076; 81003; 83735; 83880; 84484; 85025; 85610; 93005; 99284

== ENCOUNTER 2022-06-20 15:18 | Inpatient (IN) | payer OTHER ==
--- OUTSIDE RECORDS SUMMARY | 2022-06-20 15:23 | XMS REPORT | Clinical Summary ---
:[address] [facility] MD [facility] Address [address] [place] [address] Care Team Providers Name Role Phone Polly Abbott MD Unavailable Polly Abbott MD Unavailable Jorge Tracey MD Unavailable Fannie Macias MD Primary Care Provider [phone] Allergies Active Allergy Reactions Severity Noted Date Comments Pregabalin Other (See Comments) High 04/08/2016 Suicida l ideation Penicillins Anaphylaxis High 04/08/2016 Trazodone Other (See Comments) High 04/08/2016 congnit ion Medications Medication Sig Dispensed Refills Start Date End Date Status ANORO ELLIPTA 62.5-25 Inhale 1 puff by 0 10/31/2015 Active mcg/actuation dsdv mouth daily. Reported on 01/12/2017 HYDROcodone-acetaminop Take 1 tablet by 0 03/25/2016 Active hen (NORCO) 7.5 mg-325 mouth twice mg per tablet daily. lansoprazole Take 1 mg by 0 04/04/2016 Act may (PREVACID) 15 MG mouth daily. capsule oxybutynin Take 1 tablet by 0 04/04/2016 A ctive (DITROPAN-XL) 10 mg 24 mouth daily. hr tablet zolpidem (AMBIEN CR) Take 1 tablet by 0 01/11/2016 Active 12.5 mg CR tablet mouth nightly as needed for sleep. multivitamin capsule Take 1 capsule 0 Active by mouth daily. ibuprofen TAKE 1 TABLET BY 0 04/12/2017 Ac tive (ADVIL,MOTRIN) 800 mg MOUTH TWICE A tablet DAY NEEDED aspirin 81 mg EC TAKE 1 TABLET 120 tablet 0 11/30/2017 Active tabletIndications: (81 MG) BY MOUTH Polyneuropathy in DAILY. diseases classified elsewhere, Restless leg syndrome gabapentin (NEURONTIN) Take 3 tabs 270 capsule 11 12/03/2017 Active 300 mg three times day capsuleIndications: Secondary peripheral neuropathy DULoxetine (CYMBALTA) TAKE 2 CAPSULES 60 capsule 2 01/06/2018 Active 20 mg BY MOUTH EVERY capsuleIndications: DAY Serum neuropathy DULoxetine (CYMBALTA) TAKE ONE CAPSULE 60 capsule 5 05/25/2018 Active 30 mg BY MOUTH TWICE A capsuleIndications: DAY Polyneuropathy in diseases classified elsewhere pramipexole (MIRAPEX) Take 2 tablets 180 tablet 1 05/23/2020 Active 0.125 mg (0.25 mg) by tabletIndications: mouth at Serum neuropathy bedtime. 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 Sex Assigned at Date Recorded Not on file Obstetrics History Last Filed Vital Signs Not on file Plan of Treatment Health Maintenance Due Date Last Done Comments COVID-19 Vaccination (#1) 04/15/1931 Results Not on fileafter 06/20/2021 Insurance Payer Benefit Plan / Subscriber ID Effective Dates Phone Addre ss Type Group AETNA MEDICARE AETNA MEDICARE [id number] 2016-[place] [id number] [place] [address] [address] ([address]) [place] [id number] Gracie Lewis Personal/Family Self 1930 [address] [place] [id number] Gracie Lewis Personal/Family Self 1930 [address] [place] [id number] Advance Directives Type Date Recorded 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 Explanati on Advance Directives: 08/30/2008 Directive to Physicians Living Will and Family or Surrogates-Maximo De La Garza Advance Directives: 08/30/2008 Medical Elder r of Windows Software Developer Medical Power of Windows Software Developer Care Teams Inbound Telemarketer Relationship Specialty Start Date End Date Polly Abbott MD PCP - External Follow Up Medical Oncology 03/30/[address] [place], [place] [id number] Polly Abbott MD PCP - External Referring Medical Oncology 03/30/16 [address] [place], [place] [id number] Jorge Tracey MD PCP - External Primary Internal Medicine 03/30/[address] [place] [address] [place] [phone] Fannie Macias PCP - General Lymphoma and Myeloma 03/30/16 MD [facility]imee [facility] [facility] [place] [address]
--- OUTSIDE RECORDS SUMMARY | 2022-06-20 15:23 | XMS REPORT | Continuity of Care Document ---
:1930 Author Organization [facility] t Address [address] [place] [address] Care Team Providers Name Role Phone [phone] Primary Care Physician Unavailable Letha Guevara APRN Attending Clinician GRICELDA GUERRERO Attending Clinician Unavailable Gricelda Guerrero DO Attending Clinician JULITA MUÑOZ Attending Clinician Unavailable DEBBIE WADSWORTH Attending Clinician Unavailable DEBBIE WADSWORTH Attending Clinician Unavailable Payers Payer Name Policy Type Policy Number Effective Date Expiration Date S sherman [employer]ETNA MEDICARE PPO [id number] 2016 00:00:00 AETNA MEDICARE ADV [id number] 2018 00:00:00 Problems Condition Condition Condition Status Onset Resolution Last Treating Co mments Source Name Details Category Date Date Treatment Clinician Date 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 6-14 Health syndrome) syndrome) 00:00: 00 Chronic Chronic Disease Active [facility] pain pain 6-14 Health 00:00: 00 HTN HTN Disease Active UT (hypertens (hypertens 6-14 He alth ion) ion) 00:00: 00 Carotid Carotid Disease Active UT bruit bruit 614 Health 00:00: 00 Mitral Mitral Disease Active [facility] valve valve 6-14 Health stenosis stenosis 00:00: and aortic and aortic 00 valve valve stenosis stenosis Unspecifie Unspecifie Disease Active U nivers d fall d fall 5-04 ity of 00:00: [place] 00 MD [facility] Superficia Superficia Disease Active U nivers l peroneal l peroneal 5-04 it [place] neuropathy [place] [facility] Neuropathy Neuropathy Disease Active 2016-08 U nivers 1-01 ity of 00:00: [place] 00 MD [facility] Restless Restless Disease Active Unive rs legs legs 6-14 ity of syndrome syndrome 00:00: [place] (RLS) (RLS) 00 MD [facility] Secondary Secondary Disease Active Uni vers peripheral peripheral 6-14 it y of neuropathy neuropathy [place] [facility] Abnormal Abnormal Disease Active Unive rs gait gait 6-14 ity of 00:00: [place] 00 MD [facility] Marginal Marginal Disease Active Overview: Un susan zone zone 9-09 Formattin ity of lymphoma lymphoma 00:00: g of this Asad as involving involving 00 note extranodal extranodal might be [facility] site site different n from the Cancer original. Center HL ICD10 regulator y upload Allergies, Adverse Reactions, Alerts Allergy Allergy Status Severity Reaction(s) Onset Inactive Treating Comm ents Source Name Type Date Date Clinician Tramadol Allergy Active Other UT to 7-21 reaction( Health substanc 00:00: s): e 00 suicidal, depressio n Bergera Allergy Active Other UT Koenigii to 9-10 reaction( Healt h substanc 00:00: s): e 00 Unknown PREGABAL DRUG Active High Other IN INGREDI 04-08 Anderso 00:00: n 00 PENICILL Drug Active High Anaphylaxis Uni vers INS Class 04-08 ity of 00:00: [place] [facility] PREGABAL DRUG Active High Other-Cmnt Univ ers IN INGREDI 04-08 ity of 00:00: [place] 00 [facility] TRAZODON DRUG Active High Other-Cmnt Univ ers E INGREDI 04-08 ity of 00:00: [place] 00 [facility] Pregabal Propensi Active Other (See Suicidal Univers in ty to Comments) 04-08 ideation ity o f adverse 00:00: [place] reaction 00 MD [facility] Penicill Propensi Active Anaphylaxis U nivers ins ty to 04-08 ity of adverse 00:00: [place] reaction 00 MD [facility] Trazodon Propensi Active Other (See congnitio Univers e ty to Comments) 04-08 n ity of adverse 00:00: [place] reaction 00 MD [facility] PENICILL Drug Active High Anaphylaxis INS Class 04-08 Anderso 00:00: n 00 TRAZODON DRUG Active High Other MD E INGREDI 04-08 Anderso 00:00: n 00 Pregabal Allergy Active Other UT in to 04-08 reaction( Health substanc 00:00: s): Other e 00 (See Comments) , UnknownSu icidal ideationS uicidal ideation Penicill Allergy Active Anaphylaxis Other UT ins to 04-08 reaction( Health substanc 00:00: s): e 00 UNKNOWN Family History Family Member Diagnosis Comments Start Date Stop Date Source Natural [facility] -[facility] [place] [facility] [place] (Esophagus, Liver, And erson Cancer Bile Duct, Stomach, Cente r Pancreas, Colon, Rectum, Anus Natural father Colon cancer Universi ty [facility] Natural mother [facility] Social History Social Habit Start Date Stop Date Quantity Comments Source History of tobacco Cigarette [facility]oker [facility] use Exposure to 2022-02-15 2022-02-25 Not sure [facility] SARS-CoV-2 (event) 00:00:00 15:27:00 Tobacco use and 2022-01-13 2022-01-13 Smokeless [facility] exposure 00:00:00 00:00:00 tobacco non-user Alcohol intake 2017-06-02 2017-06-02 Current University of 00:00:00 00:00:00 non-drinker of [facility]ha gonz[facility] alcohol [facility] (finding) Alcohol Comment 2016-05-15 2016-05-15 was an alcoholic Uni versity of 00:00:00 00:00:00 drank for 30 + Tiesha gonzales years quit Cancer Center around 1981. Cigarettes smoked 2016-04-08 2016-04-08 Univers ity of current (pack per 00:00:00 00:00:00 Tiesha Lam [place] ) - Reported Cancer Ce nter Cigarette 2016-04-08 2016-04-08 University of pack-years 00:00:00 00:00:00 [facility] love [facility] Sex Assigned At [birth year] Universit y of 00:00:00 00:00:00 Tiesha love [facility] Smoking Status Start Date Stop Date Source Ex-smoker 2022-01-13 00:00:00 2022-01-13 00:00:00 [facility] Medications Ordered Filled Start Stop Current Ordering Indication Dosage Frequency Signature Comments Components Source Medication Medication Date Date Medication? Clinician (SIG) Name Name pramipexole Yes .25mg Take 0.25 UT (Mirapex) 02-25 mg by Health 0.125 MG 15:41: mouth. tablet 51 diflorasone Yes if needed. UT (Psorcon) 02-25 Health 0.05 % 15:41: ointment 51 Multiple Yes 1{capsu Take 1 UT Vitamin 02-25 le} capsule by Health (MULTIVITAM 15:41: mouth. IN ADULT 51 PO) aspirin 81 Yes UT MG EC 02-25 Health tablet 15:41: 51 Melatonin 3 Yes UT MG capsule 02-25 Health 15:41: 51 lidocaine Yes Apply UT (Xylocaine) 02-25 topically Hea lth 5 % 15:41: if needed ointment 51 for mild pain. 0.125% oxybutynin 2021- No 10mg Take 10 mg UT (Ditropan) 02-25 by mouth. Hea lth 5 MG tablet 15:41: 00:00 51 :00 Apoaequorin 2021- No UT (Prevagen 02-25 Health Extra 15:41: 00:00 Strength) 51 :00 20 MG capsule Potassium 2021- No UT Gluconate 02-25 Health 595 MG 15:41: 00:00 capsule 51 :00 Probiotic 2021- No UT Product 02-25 Health (Probiotic 15:41: 00:00 Acidophilus 51 :00 Beads) capsule predniSONE 2021- No UT (Deltasone) 02-10 Health 10 MG 00:00: 00:00 tablet 00 :00 pramipexole Yes .25mg Take 0.25 UT (Mirapex) 6-16 mg by Health 0.125 MG 14:31: mouth. tablet 22 oxybutynin Yes 10mg Take 10 mg U T (Ditropan) 6-16 by mouth. Heal th 5 MG tablet 14:31: 22 diflorasone Yes if needed. UT (Psorcon) 6-16 Health 0.05 % 14:31: ointment 22 Multiple Yes 1{capsu Take 1 UT Vitamin 6-16 le} capsule by Health (MULTIVITAM 14:31: mouth. IN ADULT 22 PO) mirtazapine 2021- No UT (Remeron) 12-08 Health 15 MG 00:00: 00:00 tablet 00 :00 HYDROcodone Yes UT -acetaminop 4-15 Health hen ([place]) 00:00: 10-325 MG 00 tablet Anoro Yes QD Inhale 1 UT Ellipta 8-13 (one) time Health 62.5-25 00:00: each day. MCG/INH 00 aerosol powder Anoro 0 Yes QD Inhale 1 UT Ellipta 8-13 (one) time Health 62.5-25 00:00: each day. MCG/INH 00 aerosol powder rivastigmin Yes 1{patch Place 1 UT e (Exelon) 6-07 } patch on Healt h 9.5 MG/24HR 00:00: the skin. 00 rivastigmin Yes 1{patch Place 1 UT e (Exelon) 6-07 } patch on Healt h 9.5 MG/24HR 00:00: the skin. 00 carBAMazepi Yes 100mg Take 100 U T ne XR 2-19 mg by Health (TEGretol 00:00: mouth. XR) 100 MG 00 12 hr tablet carBAMazepi 2021- No 100mg Take 100 UT ne XR 2-19 07-27 mg by Health (TEGretol 00:00: 00:00 mouth. XR) 100 MG 00 :00 12 hr tablet furosemide Yes 20mg Take 20 mg U T (Lasix) 20 1-28 by mouth. Heal th MG tablet 00:00: 00 furosemide Yes 20mg Take 20 mg U T (Lasix) 20 1-28 by mouth. Heal th MG tablet 00:00: 00 sertraline Yes 100mg Take 100 UT (Zoloft) 1-09 mg by Health 100 MG 00:00: mouth. tablet 00 sertraline Yes 100mg Take 100 UT (Zoloft) 1-09 mg by Health 100 MG 00:00: mouth. tablet 00 pramipexole 2019-08 Yes Serum .25mg Take 2 Un susan (MIRAPEX) 0-22 neuropathy tablets i ty of 0.125 mg 00:00: (0.25 mg[place] 00 [place] mouth [place] [facility]. [facility] DULoxetine 2017-08 Yes Polyneuropa TAKE ONE Univers (CYMBALTA) 0-24 thy in CAPSULE BY i ty of 30 mg 00:00: diseases MOUTH [place] capsule 00 classified TWICE A [facility] D[facility] Yes Serum TAKE 2 Univ ers (CYMBALTA) 6-07 neuropathy CAPSULES ity of 20 mg 00:00: BY MOUTH [place] capsule 00 EVERY DAY MD O[facility] multivitami 2017- Yes 1{capsu Take 1 U nivers n capsule 5-04 le} capsule by ity of 10:00: mouth [place] 54 daily. MD Oc watkins [facility] gabapentin Yes Secondary Take 3 Univers (NEURONTIN) 5-04 peripheral tabs three ity of 300 mg 00:00: neuropathy times day [place] capsule 00 MD O[facility] watkins [facility] aspirin 81 Yes Restless 81mg TAKE 1 U nivers mg EC 5-01 leg TABLET (81 ity of tablet 00:00: syndrome MG) BY [place] 00 MOUTH [facility] Yes TAKE 1 Univer s (ADVIL,MOTR 9-11 TABLET BY ity of IN) 800 mg 00:00: MOUTH [place] tablet 00 TWICE A MD DAY Anderso NEEDED n [facility] lansoprazol Yes 1mg Take 1 mg U nivers e 9-03 by mouth ity of (PREVACID) 00:00: daily. [place] 15 MG 00 MD capsule Oc n [facility] oxybutynin Yes 1{tbl} Take 1 Uni vers (DITROPAN-X 9-03 tablet by ity of L) 10 mg 24 00:00: mouth [place] hr tablet 00 daily. MD Oc watkins [facility] HYDROcodone Yes 1{tbl} Take 1 Un susan -acetaminop 8-24 tablet by ity of hen (NORCO) 00:00: mouth [place] 7.5 mg-325 00 twice MD mg per daily. Andlorio tablet n [facility] zolpidem Yes 1{tbl} Take 1 Unive rs (AMBIEN CR) 6-11 tablet by ity of 12.5 mg CR 00:00: mouth [place] tablet 00 nightly as MD needed for Andlorio sleep. n [facility] ANORO Yes 1{puff} Inhale 1 Unive rs ELLIPTA 3-31 puff by ity of 62.5-25 00:00: mouth [place] mcg/actuati 00 daily. on dsdv Reported Anderso on n 01/12/2017 [facility] Immunizations Ordered Immunization Filled Immunization Date Status Commen ts Source Name Name COVID-19 Pfizer 2021-04-28 Completed [facility] Vaccination 00:00:00 (PURPLE-DILUTE) COVID-19 Pfizer 2021-04-28 Completed [facility] Vaccination 00:00:00 (PURPLE-DILUTE) COVID-19 Pfizer 2020-08-29 Completed [facility] Vaccination 00:00:00 (PURPLE-DILUTE) COVID-19 Pfizer 2020-08-29 Completed [facility] Vaccination 00:00:00 (PURPLE-DILUTE) COVID-19 Pfizer 2020-08-08 Completed [facility] Vaccination 00:00:00 (PURPLE-DILUTE) COVID-19 Pfizer 2020-08-08 Completed [facility] ealt Over Vaccination 00:00:00 (PURPLE-DILUTE) Vital Signs Vital Name Observation Time Observation Value Comments Source Systolic blood pressure 2022-02-25 20:33:00 143 mm[Hg] [facility] Diastolic blood pressure 2022-02-25 20:33:00 95 mm[Hg] [facility] Heart rate 2022-02-25 20:33:00 89 /min [facility] Body height 2022-02-25 20:33:00 174 cm [facility] Body weight 2022-02-25 20:33:00 68.04 kg [facility] BMI 2022-02-25 20:33:00 22.48 kg/m2 [facility] Systolic blood pressure 2022-01-15 19:26:00 133 mm[Hg] [facility] Diastolic blood pressure 2022-01-15 19:26:00 77 mm[Hg] [facility] Heart rate 2022-01-15 19:26:00 83 /min [facility] Body height 2022-01-15 19:26:00 172.7 cm [facility] Body weight 2022-01-15 19:26:00 68.04 kg [facility] BMI 2022-01-15 19:26:00 22.81 kg/m2 [facility] Procedures Procedure Date / Time Performed Performing Clinician [facility] e ECG 12-LEAD 2022-02-25 20:46:00 Letha Guevara [facility] ECG 12-LEAD 2022-01-15 19:26:00 Gricelda Guerrero [facility] Plan of Care Planned Activity Planned Date Details Comments Source Future Scheduled 2022-06-08 COVID-19 Vaccination [facility] [place] Test 12:45:04 (#1) [code = COVID-19 MD And reg Cancer Vaccination (#1)] Center Encounters Start End Encounter Admission Attending Care Care Encounter Source Date/Time Date/Time Type Type Clinicians Facility Department ID 2022-02-25 2022-02-25 Office BARRY Guevara [id number] [place] 15:30:00 16:03:53 Visit Letha JENSEN [id number] [facility] [id number] 2022-02-03 2022-02-03 Outpatient NEGRO [facility] CAR 7500 [facility] 09:00:00 15:48:00 GRICELDA 2022-01-15 2022-01-15 Office Negro [facility] [id number] [place] 14:15:00 15:09:52 Visit Gricelda JENSEN [id number] [place] [id number] 2020-09-24 2020-09-24 Outpatient JULITA VAZ [facility] [id number] 08:54:05 11:51:35 Yolori watkins 2020-09-20 2020-09-20 Outpatient DEBBIE CAI [facility] [id number] Univers 09:20:00 09:20:00 DEBBIE WADSWORTH [facility] 2019-11-06 2019-11-06 Outpatient DEBBIE CAI [facility] [id number] Univers 09:20:00 09:20:00 DEBBIE WADSWORTH [facility] Results Test Description Test Time Test Comments Results Result Comments Source ECG 12 lead 2022-02-25 20:46:00 Test Item Value Reference Range Interpretation Comme nts Lab Interpretation (test code = 19358-2) Abnormal [place] [facility] 12 [id number] 19:26:00 Test Item Value Reference Range Interpretation Comments Lab Interpretation (test code = Normal [id number]) [facility]
[2022-06-20] MEDS ORDERED: KETOROLAC 30 MG/ML INJ ONE (16:12)
[2022-06-20 16:23] LABS: Absolute Lymphocytes (CBC) 1.3 K/uL (0.7-4.9); Hematocrit 36.3 % (36.0-45.0); Lymphocytes % 12.5 % (15.3-44.8); MCV 85.4 fL (80-100); MPV 7.5 fL (7.6-11.3); RBC Red Blood Cell Count 4.25 M/uL (3.86-4.86)
[2022-06-20] MEDS ORDERED: ONDANSETRON 4 MG/2 ML VIAL ONE (16:27)
[2022-06-20 16:40] LABS: Protime INR 0.95
[2022-06-20 16:49] LABS: Albumin 3.4 g/dL (3.4-5.0); Bilirubin Direct 0.3 mg/dL (0-0.2); Bilirubin Total 0.8 mg/dL (0.2-1.0); Magnesium 2.5 mg/dL (1.8-2.4); Potassium 3.8 mmol/L (3.5-5.1); Protein, Total 6.1 g/dL (6.4-8.2); Troponin High Sensitivity 11.4 pg/mL (<58.9)
[2022-06-20 17:00] LABS: SARS-COV-2 RT PCR NEGATIVE (NEGATIVE)
--- NOTE | 2022-06-20 17:24 | RAD REPORT ---
EXAM DESCRIPTION: Danyel Single View06/20/2022 4:38 pm CLINICAL HISTORY: Chest pain COMPARISON: 2019 FINDINGS: Mild right basilar opacities The remainder of the lungs appear clear of acute infiltrate. The heart is normal size Calcified pleural plaques Pacemaker leads in place IMPRESSION: Mild right basilar opacities probably mild pneumonia
[2022-06-20 18:14] LABS: Urine Blood Negative (Negative); Urine Glucose Negative (Negative); Urine Protein Negative (Negative); Urine Specific Gravity 1.015 (1.005-1.030); Urine pH 6.5 (5.0-7.0)
--- NOTE | 2022-06-20 18:20 | RAD REPORT ---
EXAM DESCRIPTION: CT - Chest For Pe Angio - 06/20/2022 5:52 pm CLINICAL HISTORY: sob COMPARISON: 2017 TECHNIQUE: Dynamically enhanced axial 3 mm thick images of the chest were obtained during administra tion of <100> mL Isovue 370 IV contrast. Coronal and oblique reconstruction images were generated and reviewed. Exam utilizes a protocol for optimal evaluation of pulmonary arterial tree. Maximum intensity projections 3D imaging was utilized All CT scans are performed using dose optimization technique as appropriate and may include automated exposure control or mA/KV adjustment according to patient size. FINDINGS: A pulmonary embolus is not seen. A thoracic aortic aneurysm is not noted. A pleural effusion is not seen. A pericardial effusion is not seen. 4 cm consolidation right middle lobe. Calcified pleural plaques IMPRESSION: Negative for a pulmonary embolism. Right middle lobe pneumonia
[2022-06-20 18:42] LABS: Urine Mucus Slight /HPF (None Seen); Urine WBC Clump Rare /HPF (None Seen)
[2022-06-20] MEDS ORDERED: CEFTRIAXONE 1000 MG/VIAL ONE (19:00)
[2022-06-20] MEDS ORDERED: NA CHLORIDE 0.9% 250 ML ONE (19:00)
[2022-06-20] MEDS ORDERED: MORPHINE 2 MG/ML SYR ONE (19:00)
[2022-06-20] MEDS ORDERED: AZITHROMYCIN 500 MG INJ IVPB ONE (19:00)
--- NOTE | 2022-06-20 19:01 | EDPHYS ---
Physician Documentation [facility] Name: Gracie Lewis Age: 89 yrs Sex: Female : 1930 Arrival Date: 06/20/2022 Time: 15:22 Bed 16 Private MD: Jacinta Tracey C ED Physician Bobby Billy HPI: 06/20 15:40 This 89 yrs old Female presents to ER via Ambulatory with complaints of Congestion, cp Chest Pain. 15:40 The patient or guardian reports chest pain that is located primarily in the right lower cp chest. 15:40 Onset: this morning. Duration: The patient or guardian reports a single episode, that cp is still ongoing, and unchanged. pain similar to when diagnosed with pneumonia. Historical: - Allergies: 15:27 moon; hb 15:27 Lyrica; hb 15:27 PENICILLINS; hb 15:27 tramadol; hb - PMHx: 15:27 Gastric Reflux; GERD; insomnia; Depression; LYMPHOMA; neuropathy; restless leg syndrome;hb - Immunization history:: Adult Immunizations up to date. - Social history:: Smoking status: Patient denies any tobacco usage or history of. ROS: 15:45 Constitutional: Negative for body aches, chills, fever, poor PO intake. cp 15:45 Eyes: Negative for injury, pain, redness, and discharge. cp 15:45 ENT: Negative for drainage from ear(s), ear pain, sore throat, difficulty swallowing, difficulty handling secretions. 15:45 Cardiovascular: Positive for chest pain, of the right lower chest, Negative for edema, palpitations. 15:45 Respiratory: Positive for chest congestion, Negative for cough, shortness of breath, wheezing. 15:45 Abdomen/GI: Negative for abdominal pain, nausea, vomiting, and diarrhea. 15:45 Back: Negative for injury or acute deformity, decreased range of motion. 15:45 : Negative for urinary symptoms. 15:45 Neuro: Negative for altered mental status, dizziness, headache, syncope, weakness. 15:45 All other systems are negative. Exam: 15:50 Constitutional: The patient appears in no acute distress, alert, awake, cp non-diaphoretic, non-toxic, well developed, well nourished, uncomfortable. 15:50 Head/Face: Normocephalic, atraumatic. cp 15:50 Eyes: Periorbital structures: appear normal, Conjunctiva: normal, no exudate, no injection, Sclera: no appreciated abnormality, Lids and lashes: appear normal, bilaterally. 15:50 ENT: External ear(s): are unremarkable, Nose: is normal, Posterior pharynx: Airway: no evidence of obstruction, patent. 15:50 Neck: ROM/movement: is normal, is supple, without pain, no range of motions limitations, no meningismus. 15:50 Chest/axilla: Inspection: normal, Palpation: crepitus, is not appreciated, tenderness, is not appreciated. 15:50 Cardiovascular: Rate: tachycardic, Rhythm: regular, Edema: ankle edema, that is mild, JVD: is not appreciated. 15:50 Respiratory: the patient does not display signs of respiratory distress, Respirations: normal, no use of accessory muscles, no retractions, labored breathing, is not present, Breath sounds: are clear throughout, no decreased breath sounds, no stridor, no wheezing. 15:50 Abdomen/GI: Inspection: abdomen appears normal, Bowel sounds: active, all quadrants, Palpation: abdomen is soft and non-tender, in all quadrants. 15:50 Back: CVA tenderness, is absent. 15:50 Skin: cellulitis, is not appreciated, no rash present. 15:50 Neuro: Orientation: to person, place \T\ time. Mentation: is normal, Motor: moves all fours, strength is normal, Sensation: is normal. 15:55 ECG was reviewed by the Attending Physician. cp Vital Signs: 15:25 BP 158 / 86; Pulse 101; Resp 20; Temp 98.6(TE); Pulse Ox 96% on R/A; Weight 72.57 kg; hb Height 5 ft. 8 in. (172.72 cm); Pain 8/10; 16:00 BP 134 / 67; Pulse 91; Pulse Ox 94% on R/A; ko1 16:30 BP 117 / 80; Pulse 88; Pulse Ox 92% on R/A; ko1 17:00 BP 123 / 62; Pulse 88; Pulse Ox 94% on R/A; ko1 17:30 BP 111 / 63; Pulse 88; Pulse Ox 93% on R/A; ko1 18:00 BP 112 / 76; Pulse 90; Resp 18; Temp 98.8(O); Pulse Ox 92% on R/A; ko1 20:47 BP 102 / 54; Pulse 89; Resp 16; Temp 98(O); Pulse Ox 94% on R/A; Pain 0/10; ke1 20:59 Pulse Ox 95% on 2 lpm NC; ke1 15:25 Body Mass Index 24.33 (72.57 kg, 172.72 cm) hb MDM: 15:31 Patient medically screened. cp 18:50 Data reviewed: vital signs, nurses notes, lab test result(s), EKG, radiologic studies, cp CT scan, plain films. 18:50 Test interpretation: by ED physician or midlevel provider: ECG, plain radiologic cp studies. 06/20 15:38 Order name: Basic Metabolic Panel; Complete Time: 16:59 06/20 17:28 Interpretation: Normal except: GFR 46. 06/20 15:38 Order name: CBC with Diff; Complete Time: 16:59 06/20 18:48 Interpretation: Normal except: MPV 7.5; MALU% 75.1; LYM% 12.5. 06/20 15:38 Order name: LFT's; Complete Time: 16:59 06/20 18:49 Interpretation: Normal except: BILID 0.3; TP 6.1. 06/20 15:38 Order name: Magnesium; Complete Time: 16:59 cp 06/20 15:38 Order name: NT PRO-BNP; Complete Time: 16:59 cp 06/20 15:38 Order name: PT-INR; Complete Time: 17:28 cp 06/20 15:38 Order name: Troponin HS; Complete Time: 16:59 cp 06/20 15:38 Order name: Lipase; Complete Time: 16:59 cp 06/20 15:39 Order name: Urine Microscopic Only; Complete Time: 18:48 cp 06/20 15:39 Order name: COVID-19/FLU A+B; Complete Time: 17:28 cp 06/20 17:01 Order name: LAB Add On 06/20 17:01 Order name: D-Dimer 06/20 17:03 Order name: D-Dimer; Complete Time: 17:28 EDMS 06/20 18:15 Order name: Urine Dipstick-Ancillary; Complete Time: 18:20 EDMS 06/20 18:20 Interpretation: Normal except: UKET 2+; UESTR 1+. cp 06/20 15:38 Order name: XRAY Chest (1 view); Complete Time: 17:28 cp 06/20 17:28 Interpretation: Report review. 06/20 15:38 Order name: EKG; Complete Time: 15:39 cp 06/20 17:28 Order name: CT Chest For PE Angio; Complete Time: 18:48 cp 06/20 18:49 Interpretation: Report reviewed. 06/20 19:18 Order name: Regular EDMS 06/20 19:18 Order name: Basic Metabolic Panel EDMS 06/20 19:18 Order name: Basic Metabolic Panel EDMS 06/20 19:18 Order name: CBC with Automated Diff EDMS 06/20 19:18 Order name: CBC with Automated Diff EDMS 06/20 19:18 Order name: NT PRO-BNP EDMS 06/20 19:18 Order name: NT PRO-BNP EDMS 06/20 15:38 Order name: Cardiac monitoring; Complete Time: 16:08 06/20 15:38 Order name: EKG - Nurse/Tech; Complete Time: 16:08 06/20 15:38 Order name: IV Saline Lock; Complete Time: 16:08 06/20 15:38 Order name: Labs collected and sent; Complete Time: 16:08 06/20 15:38 Order name: O2 Per Protocol; Complete Time: 16:09 06/20 15:38 Order name: O2 Sat Monitoring; Complete Time: 16:09 06/20 15:39 Order name: Urine Dipstick-Ancillary (obtain specimen); Complete Time: 18:14 06/20 18:21 Order name: Vital Signs: please update to include temp; Complete Time: 18:55 cp EC:55 Rate is 93 beats/min. Rhythm is regular. [place] interval is normal. QRS interval is normal. cp QT interval is normal. T waves are Inverted in leads aVL, aVR. Interpreted by me. Reviewed by me. Administered Medications: 16:12 Drug: Ketorolac 15 mg Route: IVP; Site: left antecubital; ko1 16:57 Follow up: Response: No adverse reaction; Pain is decreased ko1 16:30 Drug: Zofran (Ondansetron) 4 mg Route: IVP; Site: left antecubital; ko1 16:57 Follow up: Response: No adverse reaction; Nausea is decreased ko1 19:09 Drug: morphine 2 mg Route: IVP; Infused Over: 4 mins; Site: left antecubital; ko1 19:09 Drug: Rocephin - (cefTRIAXone) 1 grams Route: IVPB; Infused Over: 30 mins; Site: left ko1 antecubital; 19:09 Drug: Zithromax (azithromycin) 500 mg Route: IVPB; Infused Over: 1 hrs; Site: left ko1 antecubital; 19:42 Drug: Lovenox (enoxaparin) 40 mg Route: Sub-Q; Site: left lower abdomen; ke1 Disposition Summary: 06/20/22 19:00 Hospitalization Ordered Hospitalization Status: Inpatient Admission cp Provider: Jacinta Tracey cp Location: Telemetry/MedSurg (Inpatient) cp Condition: Stable cp Problem: new cp Symptoms: have improved cp Bed/Room Type: Standard cp Room Assignment: 217(06/20/22 20:34) Diagnosis - Pneumonia due to other specified infectious organisms - Right Middle Lobe cp Forms: - Medication Reconciliation Form cp - SBAR form cp Addendum: 06/22/2022 17:37 Co-signature as Attending Physician, Bobby Billy MD I agree with the assessment and r t plan of care. Signatures: Dispatcher [employer] Bert Leos PA PA cp Garcia, Cindy, RN RN Adriana Nuñez RN RN Christophe Ta RN RN ke1 Oliver, Kathy, RN RN ko1 Bobby Billy MD MD rt Corrections: (The following items were deleted from the chart) 06/20 20:34 19:00 cp cg
--- NOTE | 2022-06-20 19:01 | ER ---
Nurse's Notes [facility] Name: Gracie Lewis Age: 89 yrs Sex: Female : 1930 Arrival Date: 06/20/2022 Time: 15:22 Bed 16 Private MD: Jacinta Tracey C Diagnosis: Pneumonia due to other specified infectious organisms-Right Middle Lobe Presentation: 06/20 15:25 Chief complaint: SOB, pain with breathing, and nausea since this morning. Coronavirus hb screen: Client presents with at least one sign or symptom that may indicate coronavirus-19. Standard/surgical mask placed on the client. Provider contacted for isolation considerations. Ebola Screen: No symptoms or risks identified at this time. Risk Assessment: Do you want to hurt yourself or someone else? Patient reports no desire to harm self or others. Onset of symptoms was June 20, 2022. 15:25 Method Of Arrival: Ambulatory hb 15:25 Acuity: ZUNILDA 3 hb 19:00 Initial Sepsis Screen: Does the patient meet any 2 criteria? No. Patient's initial ke1 sepsis screen is negative. Does the patient have a suspected source of infection? No. Patient's initial sepsis screen is negative. Historical: - Allergies: 15:27 moon; hb 15:27 Lyrica; hb 15:27 PENICILLINS; hb 15:27 tramadol; hb - PMHx: 15:27 Gastric Reflux; GERD; insomnia; Depression; LYMPHOMA; neuropathy; restless leg syndrome;hb - Immunization history:: Adult Immunizations up to date. - Social history:: Smoking status: Patient denies any tobacco usage or history of. Screenin:45 Abuse screen: Denies threats or abuse. Denies injuries from another. Nutritional ko1 screening: No deficits noted. Tuberculosis screening: No symptoms or risk factors identified. Fall Risk None identified. Assessment: 15:45 General: Appears in no apparent distress. uncomfortable, Behavior is calm, cooperative, ko1 appropriate for age. Pain: Complains of pain in all over. Neuro: No deficits noted. Cardiovascular: Patient's skin is warm and dry. Respiratory: Airway is patent Breath sounds are clear bilaterally. GI: No deficits noted. : No deficits noted. EENT: No deficits noted. Derm: No deficits noted. Musculoskeletal: No deficits noted. 20:52 Reassessment: *9 on room air NC applied at 2l p NC. ke1 Vital Signs: 15:25 BP 158 / 86; Pulse 101; Resp 20; Temp 98.6(TE); Pulse Ox 96% on R/A; Weight 72.57 kg; hb Height 5 ft. 8 in. (172.72 cm); Pain 8/10; 16:00 BP 134 / 67; Pulse 91; Pulse Ox 94% on R/A; ko1 16:30 BP 117 / 80; Pulse 88; Pulse Ox 92% on R/A; ko1 17:00 BP 123 / 62; Pulse 88; Pulse Ox 94% on R/A; ko1 17:30 BP 111 / 63; Pulse 88; Pulse Ox 93% on R/A; ko1 18:00 BP 112 / 76; Pulse 90; Resp 18; Temp 98.8(O); Pulse Ox 92% on R/A; ko1 20:47 BP 102 / 54; Pulse 89; Resp 16; Temp 98(O); Pulse Ox 94% on R/A; Pain 0/10; ke1 20:59 Pulse Ox 95% on 2 lpm NC; ke1 15:25 Body Mass Index 24.33 (72.57 kg, 172.72 cm) hb ED Course: 15:22 Patient arrived in ED. rg4 15:22 Jacinta Tracey MD is Private Physician. rg4 15:27 Triage completed. hb 15:30 Bert Foster PA is PHCP. cp 15:30 Bobby Billy MD is Attending Physician. cp 15:31 Opal Barragan, OMAR is Primary Nurse. ko1 15:45 Patient has correct armband on for positive identification. Placed in gown. Bed in low ko1 position. Call light in reach. Side rails up X 1. Client placed on continuous cardiac and pulse oximetry monitoring. NIBP monitoring applied. monitoring manager on. Door closed. Noise minimized. Lights dimmed. Warm blanket given. Pillow given. 16:05 Inserted saline lock: 20 gauge in left antecubital area, using aseptic technique. Blood ko1 collected. Patient maintains SpO2 saturation greater than 95% on room air. 16:09 COVID-19/FLU A+B Sent. ko1 16:09 Lipase Sent. ko1 16:09 Basic Metabolic Panel Sent. ko1 16:09 CBC with Diff Sent. ko1 16:09 LFT's Sent. ko1 16:10 Magnesium Sent. ko1 16:10 NT PRO-BNP Sent. ko1 16:10 PT-INR Sent. ko1 16:10 Troponin HS Sent. ko1 16:40 XRAY Chest (1 view) In Process Unspecified. EDMS 17:53 CT Chest For PE Angio In Process Unspecified. EDMS 18:14 LAB Add On Sent. ko1 18:14 Urine Microscopic Only Sent. ko1 18:59 Jacinta Tracey MD is Hospitalizing Provider. cp 19:46 Primary Nurse role handed off by Opal Barragan RN 19:51 Christophe Ta RN is Primary Nurse. ke1 21:39 No provider procedures requiring assistance completed. Patient admitted, IV remains in ke1 place. Administered Medications: 16:12 Drug: Ketorolac 15 mg Route: IVP; Site: left antecubital; ko1 16:57 Follow up: Response: No adverse reaction; Pain is decreased ko1 16:30 Drug: Zofran (Ondansetron) 4 mg Route: IVP; Site: left antecubital; ko1 16:57 Follow up: Response: No adverse reaction; Nausea is decreased ko1 19:09 Drug: morphine 2 mg Route: IVP; Infused Over: 4 mins; Site: left antecubital; ko1 19:09 Drug: Rocephin - (cefTRIAXone) 1 grams Route: IVPB; Infused Over: 30 mins; Site: left ko1 antecubital; 19:09 Drug: Zithromax (azithromycin) 500 mg Route: IVPB; Infused Over: 1 hrs; Site: left ko1 antecubital; 19:42 Drug: Lovenox (enoxaparin) 40 mg Route: Sub-Q; Site: left lower abdomen; ke1 Medication: 20:53 VIS not applicable for this client. ke1 Outcome: 19:00 Decision to Hospitalize by Provider. cp 21:40 Admitted to Med/surg accompanied by tech. ke1 21:40 Condition: good 21:40 Instructed on the need for admit. 21:40 Patient left the ED. ke1 Signatures: Dispatcher [employer] EDNV Bert Foster PA PA cp Baxter, Heather, RN RN Johnna Lora rg4 Cielo Scruggs Christophe Ta RN RN ke1 Opal Barragan, OMAR RN ko1 Corrections: (The following items were deleted from the chart) 15:54 15:25 Chief complaint: SOB and nausea since this morning. hb hb 18:56 18:00 BP 112 / 76; Pulse 90bpm; Resp 18bpm; Pulse Ox 92% RA; ko1 ko1
[2022-06-20] MEDS ORDERED: ONDANSETRON 4 MG/2 ML VIAL IV PRN (19:04)
[2022-06-20] MEDS ORDERED: ACETAMINOPHEN 500 MG TAB PO PRN (19:04)
[2022-06-20] MEDS ORDERED: MORPHINE 2 MG/ML SYR IV PRN (19:04)
[2022-06-20] MEDS ORDERED: ENOXAPARIN 40 MG/0.4 ML SQ ONE (19:29)
[2022-06-20] MEDS: OXYCODONE HCL 5 MG TAB PO SCH (22:41)
[2022-06-21] MEDS: IBUPROFEN 600 MG TAB PO SCH ×3 (01:45→16:21)
[2022-06-21 04:25] LABS: Absolute Lymphocytes (CBC) 1.8 K/uL (0.7-4.9); Hematocrit 31.9 % (36.0-45.0); Lymphocytes % 19.4 % (15.3-44.8); MCV 85.2 fL (80-100); MPV 7.7 fL (7.6-11.3); RBC Red Blood Cell Count 3.75 M/uL (3.86-4.86)
[2022-06-21] MEDS: OXYCODONE HCL 5 MG TAB PO SCH ×3 (05:04→22:03)
[2022-06-21] MEDS: CEFTRIAXONE 1,000 MG in NA CHLORIDE 0.9% 50 ML IVPB SCH ×2 (08:54→22:02)
[2022-06-21] MEDS: AZITHROMYCIN IV 250 MG in NA CHLORIDE 0.9% 250 ML IVPB SCH (10:07)
[2022-06-21] MEDS ORDERED: ENOXAPARIN 40 MG/0.4 ML SQ SCH (17:00)
[2022-06-21] MEDS ORDERED: MIRTAZAPINE 15 MG TAB PO SCH (21:00)
[2022-06-21] MEDS ORDERED: CEFTRIAXONE 1000 MG/VIAL ONE (21:53)
--- NOTE | 2022-06-21 22:15 | HP ---
Date of Admission: 06/21/2022 Chief Complaint: Hoarseness of voice and chest pain. History Of Present Illness: This is an 89-year-old female patient who started to have some hoarseness of voice for couple of days, and as of yesterday, she started to have right-sided pleuritic chest pain which was getting worse with breathing. She denies any cough or congestion. No expectoration, no hemoptysis, no fall, no injury, no rash. In the past, she had similar symptoms with pneumonia, so she was concerned about it and came into our emergency room after she was evaluated. In the emergency room, she was diagnosed as having a right middle lobe pneumonia and was admitted to the hospital. When I saw her this morning, her daughter was with her at bedside. Allergies: TO PENICILLIN, CAUSING ANAPHYLACTIC REACTION. LYRICA CAUSED SUICIDAL THOUGHTS. TRAZODONE CAUSED HALLUCINATIONS. GABAPENTIN MADE HER FEEL ANGRY, AND DULOXETINE CAUSED SUICIDAL THOUGHTS. Review of Systems: Respiratory: As mentioned above. ENT: As mentioned above. All other systems reviewed and negative. Medications: 1. ProAir inhaler 2 puffs every 4 hours as needed for shortness of breath. 2. Aspirin 81 mg daily. 3. Furosemide 20 mg 2 times a day. 4. Mirtazapine 15 mg at bedtime. 5. Oxycodone 10 mg 3 times a day. Past Medical History: Significant for peripheral neuropathy, impaired fasting glucose, COPD, hyperlipidemia, gastroesophageal reflux disease, overactive bladder, osteoarthritis, depression. Past Surgical History: Cataract surgery, pacemaker placement in 2006 and 2016 and had battery replaced in 2021, cholecystectomy and partial hysterectomy and removal of squamous cell carcinoma. Family History: Father , had colon cancer and coronary artery disease. Mother , had colon cancer. Sister with hypertension. Social History: Prior history of smoking not at present time. Use of alcohol negative. Physical Examination: Vital Signs: Temperature 97.8, pulse 89, respiratory rate 18, blood pressure 123/60, oxygen saturation 90%. Height 5 feet 8-1/2 inches, weight 149 pounds. General: Awake, alert, oriented, not in distress. HEENT: Head atraumatic, normocephalic. Conjunctivae nonerythematous. Sclerae white. Mouth, no thrush or edema noted. Ears/Nose, no mass, lesion, discharge noted. Neck: Supple. No JVD, lymph nodes, bruit, thyromegaly noted. Lungs: Presence of rales noted in the right posterior mid lung field. Not using accessory muscles of respiration. Heart: Normal heart sounds, no murmur or gallop. Abdomen: Soft, bowel sounds normal. No guarding, rigidity, tenderness, mass, hepatosplenomegaly, distention, or bruit noted. Extremities: No leg edema. No calf tenderness. Skin: No rash, ulcer, cellulitis. Lymphatics: No lymph node enlargement in neck, supraclavicular, infraclavicular region. Neuro: No focal neurological deficit. Chest: Unremarkable. External Genitalia: Deferred. Rectal: Deferred. Laboratory Data: Yesterday white count 11.2, hemoglobin 13.1, platelets 327. Today, white count 9.6, hemoglobin 12.2, platelets 317. Yesterday, sodium 131, potassium 4.2, chloride 98, bicarb 29, BUN 21, creatinine 0.81, glucose 153. Liver function tests unremarkable. AST 42, alkaline phosphatase 270. ProBNP 4480. TSH 0.060. Today, sodium 133, potassium 4.1, chloride 99, bicarb 27, BUN 15, creatinine 0.54, glucose 93. Diagnostic Studies: Chest x-ray shows right middle lobe pneumonia. COVID-19 test negative. Impression: 1. Pneumonia. 2. Hyponatremia. 3. Chronic obstructive pulmonary disease. 4. Osteoarthritis, multiple sites. 5. Impaired fasting glucose. 6. Hyperlipidemia. 7. Gastroesophageal reflux disease. 8. Depression. Plan: We will go ahead and admit her to the hospital for further evaluation and management of this problem. The patient is appropriate for inpatient and is expected to spend 2 midnights in hospital. We will give antibiotic for pneumonia per order. For her COPD, we will continue inhaler as per order. For insomnia and depression, we will continue mirtazapine. For her chronic neuropathy pain and osteoarthritis, she takes oxycodone, which we will continue that and for this pleuritic chest pain, we will give her ibuprofen per order. Details and plan of treatment discussed with her. DVT prophylaxis will be given using Lovenox. I will see her tomorrow for followup. We will repeat chest x- ray tomorrow. Details and plan of treatment discussed with the patient and her daughter. Also communicated with her regarding her advanced directives and the patient clearly stated in presence of her daughter in the event of cardiopulmonary arrest, she does not want any heroic measures like CPR, defibrillation, or ventilator support, and she would want God and nature take their course, and keep her comfortable, and DNR order was written in the chart, and she also has informed me that she already has paperwork in place to donate her body to [facility]. CHUY/MARINE Voice ID: [id number] SUNNI
[2022-06-22] MEDS: IBUPROFEN 600 MG TAB PO SCH ×2 (00:35→09:52)
[2022-06-22] MEDS: OXYCODONE HCL 5 MG TAB PO SCH (04:27)
[2022-06-22 06:34] VITALS: BMI 22.2
--- NOTE | 2022-06-22 07:08 | RAD REPORT ---
EXAM DESCRIPTION: RAD - Chest Single View - 06/22/2022 5:45 am CLINICAL HISTORY: pneumonia COMPARISON: Portable June 20 TECHNIQUE: AP portable chest image was obtained 06/22/2022 5:45 am . FINDINGS: No new consolidation is seen. Diffuse interstitial opacification seen throughout the lung mcnally more pronounced in the right base. Exam is not significantly different from comparison. Left subclavian pacemaker is in place. Heart and vasculature are normal. No measurable pleural effusi on and no pneumothorax. No acute bony abnormality seen. No acute aortic findings suspected. IMPRESSION: Stable chest pattern compared to June 20.
[2022-06-22] MEDS ORDERED: FUROSEMIDE 20 MG TABLET PO SCH (09:00)
[2022-06-22] MEDS ORDERED: ASPIRIN EC 81 MG TAB PO SCH (09:00)
[2022-06-22] MEDS: AZITHROMYCIN IV 250 MG in NA CHLORIDE 0.9% 250 ML IVPB SCH (09:52)
[2022-06-22] MEDS: CEFTRIAXONE 1,000 MG in NA CHLORIDE 0.9% 50 ML IVPB SCH (09:52)
[2022-06-22 09:59] VITALS: O2SAT 92
[2022-06-22 11:45] VITALS: TEMP 97
[2022-06-22 14:50] VITALS: BP 128/70
--- NOTE | 2022-06-22 15:34 | EKG ---
Test Date: 2022-06-20 Test Time: 15:51:42 Talk Show Host: ANGELA MEASUREMENT RESULTS: Intervals: Rate: 93 OH: 158 QRSD: 94 QT: 366 QTc: 455 [place]: P: 82 OH: 158 QRS: 81 T: 82 INTERPRETIVE STATEMENTS: Normal sinus rhythm Normal ECG Compared to ECG 06/18/2019 08:55:38 No significant changes Electronically Signed On 06-22-22 15:30:25 [employer]LOOR [employer] by Jim Yates
--- NOTE | 2022-06-23 05:09 | DS ---
Date of Discharge: 06/22/2022 Disposition: Discharged to go home. Physical Examination: HEENT: Unremarkable. Lungs: Bilateral good equal entry. Clear to auscultation except some rales in right middle lung reg ion. Not using any accessory muscles of respiration. Heart: Sounds normal. Abdomen: Soft. Bowel sounds normal. No guarding, rigidity, tenderness, distention. Extremities: No leg edema. Laboratory Data: Upon admission; sodium 139, potassium 3.8, chloride 102, bicarb 27, BUN 18, creatin ine 1.14, glucose 101. Liver function tests unremarkable. Yesterday; sodium 139, potassium 4, chlor hawa 106, bicarb 29, BUN 21, creatinine 1.15, glucose 87. CBC from the time of admission; white count 10.5, hemoglobin 12.1, platelets 261. Yesterday; white count 9.2, hemoglobin 10.8, platelets 215. Hospital Course: This is an 89-year-old female patient, admitted to the hospital after she presented to emergency room with right-sided pleuritic chest pain and hoarseness of voice. Please see dictate d H and P for more information. The patient came into emergency room, was evaluated and admitted to the hospital with pneumonia problem. She was given IV antibiotics, ceftriaxone, azithromycin, and matthew filiberto has tolerated this antibiotic very well. She was given pain medication that she takes at home, radhai ch is oxycodone and we also gave her ibuprofen. Overall, her condition has improved. This morning julia rivera I saw her, she was on nasal cannula oxygen 2 L/minute, which was discontinued and her room air ox ygen saturation was 92% after oxygen was discontinued today. Overall, the patient has felt better. Chest x-ray has not shown any change in the infiltrate. Medically, she is stable for discharge with outpatient therapy now. Final Diagnoses: 1.Pneumonia. 2.Hyponatremia. 3.Chronic obstructive pulmonary disease. 4.Osteoarthritis, multiple sites. 5.Impaired fasting glucose. 6.Hyperlipidemia. 7.Gastroesophageal reflux disease. 8.Depression. Discharge Medications And Instructions: 1.Continue all prior home medications. 2.Take [id number] ibuprofen 200 mg, the patient to take 3 tablets by mouth 2 times a day with food for 1 week. 3.Start azithromycin 250 mg 1 tablet by mouth daily for a week and cefuroxime 250 mg 2 times a day f or 1 week. 4.Follow up at my office next week. CHUY/MODL Voice ID: [id number] Report ID: [id number]
== END 2022-06-22 12:35 | disposition home or self-care (01) | DRG 194 ==
LOC: ER 15:18 → ERHOLD 19:03 → 2ND 20:46
PROVIDERS: ADMIT Internal Medicine; ATTEND Internal Medicine
DX: J18.9 Pneumonia, unspecified organism (principal); E87.1 Hypo-osmolality and hyponatremia; J44.0 Chronic obstructive pulmonary disease with (acute) lower respiratory infection; K21.9 Gastro-esophageal reflux disease without esophagitis; G25.81 Restless legs syndrome; F32.A Depression, unspecified; G62.9 Polyneuropathy, unspecified; M19.09 Primary osteoarthritis, other specified site; E78.5 Hyperlipidemia, unspecified; R73.01 Impaired fasting glucose; Z66 Do not resuscitate; Z88.8 Allergy status to other drugs, medicaments and biological substances; Z88.5 Allergy status to narcotic agent; Z88.0 Allergy status to penicillin; Z95.0 Presence of cardiac pacemaker; Z90.49 Acquired absence of other specified parts of digestive tract; Z91.018 Allergy to other foods; Z90.711 Acquired absence of uterus with remaining cervical stump; Z20.822 Contact with and (suspected) exposure to COVID-19
CPT/HCPCS: 0240U; 36415; 71045; 71275; 80048; 80076; 81003; 81015; 83690; 83735; 83880; 84484; 85025; 85379; 85610; 93005; 94760; 96372; 96374; 96375; 99285; J0456; J1650; J2270; J2405; J7050; Q9967

== ENCOUNTER 2022-06-23 19:00 | Inpatient (IN) | payer OTHER ==
--- OUTSIDE RECORDS SUMMARY | 2022-06-23 19:03 | XMS REPORT | Clinical Summary ---
:1930 Author Organization [facility] Address [address] [place] [address] Care Team Providers Name Role Phone Polly Abbott MD Unavailable Polly Abbott MD Unavailable Jorge Tracey MD Unavailable Fannie Macias MD Primary Care Provider Allergies Active Allergy Reactions Severity Noted Date [...] Vaccination (#1) 04/15/1931 Results Not on fileafter 06/23/2021 Insurance Payer Benefit Plan / Subscriber ID Effective Dates Phone Addre ss Type Group AETNA MEDICARE AETNA MEDICARE [id number] 2016-[id number] [place] [address] [address] [place] [id number] Gracie Lewis Personal/Family Self 1930 [address] [place] [id number] Gracie Lewis Personal/Family Self 1930 [address] [place] [id number] Advance Directives Type Date Recorded 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 Explanati on Advance Directives: 08/30/2008 Directive to Physicians Living Will and Family or Surrogates-Maximo De La Garza Advance Directives: 08/30/2008 Medical Elder r of Retail Solar Advisor Medical Power of Retail Solar Advisor Care Teams Brick Chimney Supervisor Relationship Specialty Start Date End Date Polly Abbott MD PCP - External Follow Up Medical Oncology 03/30/[address] [place], [place] [address] Polly Abbott MD PCP - External Referring Medical Oncology 03/30/16 [address] [place], [place] [id number] Jorge Tracey MD PCP - External Primary Internal Medicine 03/30/[address] [place] [address] [place] [phone] Fannie Macias PCP - General Lymphoma and Myeloma 03/30/16 MD Aimee [facility] [place] [address]
--- OUTSIDE RECORDS SUMMARY | 2022-06-23 19:04 | XMS REPORT | Continuity of Care Document ---
:1930 Author Organization [facility] t Address [address] [place] [address] Care Team Providers Name Role Phone Fannie Macias MD Primary Care Physician Letha Guevara APRN Attending Clinician GRICELDA TOM Attending Clinician Unavailable Gricelda Tom DO Attending Clinician JULITA MUÑOZ Attending Clinician Unavailable DEBBIE WADSWORTH Attending Clinician Unavailable DEBBIE WADSWORTH Attending Clinician Unavailable Payers Payer Name Policy Type Policy Number Effective Date Expiration Date S sherman [employer]ET[employer] MEDICARE PPO [id number] 2016 00:00:00 AETNA MEDICARE ADV [id number] 2018 00:00:00 Problems Condition Condition Condition Status [...] involving 00 note extranodal [facility] n from the Cancer [...] h substanc 00:00: s): e 00 Unknown PENICILL Drug Active High Anaphylaxis Uni vers [...] reaction 00 MD [facility] PREGABAL DRUG Active High Other IN INGREDI 04-08 Anderso 00:00: n 00 PENICILL Drug Active High Anaphylaxis INS Class [...] Stop Date Source Natural [facility] -[facility] [place] (Esophagus, Liver, MD And erson Cancer Bile Duct, Stomach, Cente r Pancreas, Colon, Rectum, Anus Natural father Colon cancer Universi ty [facility] Social History Social Habit Start Date [...] 2016-04-08 2016-04-08 University of pack-years 00:00:00 00:00:00 [place] [facility] Sex Assigned At [birth year] Universit y of 00:00:00 00:00:00 Tiesha love [facility] Smoking Status Start Date Stop [...] MG 00:00: 00:00 tablet 00 :00 HYDROcodone 0 Yes UT -acetaminop 4-15 Health hen ([place]) 00:00: 10-325 MG 00 tablet Anoro Yes [...] 100 MG 00 12 hr tablet carBAMazepi 0 2021- No 100mg Take 100 UT ne XR 2-19 07-27 mg by Health (TEGretol 00:00: 00:00 mouth. XR) 100 MG 00 :00 12 hr tablet furosemide 2020-0 Yes 20mg Take 20 mg U T (Lasix) 20 1-28 by mouth. Heal th MG tablet 00:00: 00 furosemide 0 Yes 20mg Take 20 mg U T (Lasix) 20 1-28 by mouth. Heal th MG tablet 00:00: 00 sertraline 0 Yes 100mg Take 100 UT (Zoloft) 1-09 mg by Health 100 MG 00:00: mouth. tablet 00 sertraline Yes 100mg Take 100 UT (Zoloft) 1-09 mg by [facility] 100 MG 00:00: mouth. tablet 00 pramipexole 2019-08 Yes Serum .25mg Take 2 Un susan (MIRAPEX) 0-22 neuropathy tablets i ty of 0.125 mg 00:00: (0.25 mg[place] mouth [place] [facility]. [facility] pramipexole 2019-08 Yes Serum .25mg Take 2 Un susan (MIRAPEX) 0-22 neuropathy tablets i ty of 0.125 mg 00:00: (0.25 mg[place] [facility] Polyneuropa TAKE ONE Univers (CYMBALTA) 0-24 thy in CAPSULE BY i ty of 30 mg 00:00: diseases MOUTH [place] capsule 00 classified TWICE A MD elsewhere DAY [facility] DULoxetine 2017-08 Yes Polyneuropa TAKE ONE Univers (CYMBALTA) 0-24 thy in CAPSULE BY i ty of 30 mg 00:00: diseases MOUTH [place] capsule 00 classified TWICE A MD elsewhere DAY [facility] DULoxetine Yes Serum TAKE 2 Univ ers (CYMBALTA) 6-07 neuropathy CAPSULES ity of 20 mg 00:00: BY MOUTH [place] capsule 00 EVERY [facility] Yes Serum TAKE 2 Univ ers (CYMBALTA) 6-07 neuropathy CAPSULES ity of 20 mg 00:00: BY MOUTH [place] capsule 00 EVERY DAY MD Oc watkins [facility] multivitami Yes 1{capsu Take 1 U nivers n capsule 5-04 le} capsule by ity of 10:00: mouth [place] 54 daily. MD Oc watkins [facility] multivitami Yes 1{capsu Take 1 U nivers n capsule 5-04 le} capsule by ity of 10:00: mouth [place] 54 daily. MD Oc watkins [facility] gabapentin Yes Secondary Take 3 Univers (NEURONTIN) 5-04 peripheral tabs three ity of 300 mg 00:00: neuropathy times day [place] capsule 00 MD Renae [facility] gabapentin Yes Secondary Take 3 Univers (NEURONTIN) 5-04 peripheral tabs three ity of 300 mg 00:00: neuropathy times day [place] capsule 00 [facility] aspirin 81 Yes Restless 81mg TAKE 1 U nivers mg EC 5-01 leg TABLET (81 ity of tablet 00:00: syndrome MG) BY [place] 00 MOUTH DAILY. [facility] aspirin 81 Yes Restless 81mg TAKE 1 U nivers mg EC 5-01 leg TABLET (81 ity of tablet 00:00: syndrome MG) BY [place] 00 MOUTH DAILY. [facility] ibuprofen Yes TAKE 1 Univer s (ADVIL,MOTR 9-11 TABLET BY ity of [place]) 800 mg 00:00: MOUTH [place] tablet 00 TWICE A MD DAY [facility] ibuprofen Yes TAKE 1 Univer s (ADVIL,MOTR 9-11 TABLET BY ity of [place]) 800 mg 00:00: MOUTH [place] tablet 00 TWICE A [facility] lansoprazol Yes 1mg Take 1 mg U nivers e 9-03 by mouth ity of (PREVACID) 00:00: daily. [place] 15 MG 00 capsule [facility] oxybutynin Yes 1{tbl} Take 1 Uni vers (DITROPAN-X 9-03 tablet by ity of L) 10 mg 24 00:00: mouth [place] hr tablet 00 daily. MD Oc watkins [facility] lansoprazol Yes 1mg Take 1 mg U nivers e 9-03 by mouth ity of (PREVACID) 00:00: daily. [place] 15 MG 00 MD capsule Andlorio [facility] oxybutynin Yes 1{tbl} Take 1 Uni vers (DITROPAN-X 9- tablet by ity of L) 10 mg 24 00:00: mouth [place] hr tablet 00 daily. MD Renae [facility] HYDROcodone Yes 1{tbl} Take 1 Un susan -acetaminop 8-24 tablet by ity of hen (NORCO) 00:00: mouth [place] 7.5 mg-325 00 twice MD mg per daily. Anderso tablet n [facility] HYDROcodone Yes 1{tbl} Take 1 Un susan -acetaminop 8-24 tablet by ity of hen (NORCO) 00:00: mouth [place] 7.5 mg-325 00 twice MD mg per daily. Anderso tablet [facility] zolpidem Yes 1{tbl} Take 1 Unive rs (AMBIEN CR) 6-11 tablet by ity of 12.5 mg CR 00:00: mouth [place] tablet 00 nightly as MD needed for Anderso sleep. n [facility] zolpidem Yes 1{tbl} Take 1 Unive rs (AMBIEN CR) 6-11 tablet by ity of 12.5 mg CR 00:00: mouth [place] tablet 00 nightly as MD needed for [place] sleep. [facility] ANORO Yes 1{puff} Inhale 1 Unive rs ELLIPTA 3-31 puff by ity of 62.5-25 00:00: mouth [place] mcg/actuati 00 daily. on dsdv Reported [place] on n 01/12/2017 [facility] ANORO Yes 1{puff} Inhale 1 Unive rs ELLIPTA 3-31 puff by ity of 62.5-25 00:00: mouth [place] mcg/actuati 00 daily. MD on dsdv Reported [place] on n 01/12/2017 [facility] Immunizations Ordered Immunization Filled Immunization Date Status Commen ts Source Name Name COVID-19 SpeakUp & 2021-04-28 [facility]pleted [facility]:00 (PURPLE-DILUTE) COVID-19 [facility]akUp & 2021-04-28 [facility] 00:00:00 (PURPLE-DILUTE) COVID-19 Pfizer & 2020-08-29 [facility]pleted [facility] 00:00:00 (PURPLE-DILUTE) COVID-19 Pfizer & 2020-08-29 [facility]pleted [facility] Vacc[facility] 00:00:00 (PURPLE-DILUTE) COVID-19 Pfizer & 2020-08-08 Completed [facility] Vacc[facility] 00:00:00 (PURPLE-DILUTE) COVID-19 Pfizer & 2020-08-08 Com[facility] 00:00:00 (PURPLE-DILUTE) Vital Signs Vital Name Observation Time Observation Value Comments Source Systolic blood pressure 2022-02-25 20:33:00 143 mm[Hg] [facility] Diastolic blood pressure 2022-02-25 20:33:00 95 mm[Hg] [facility] Heart rate 2022-02-25 20:33:00 89 /min [facility] Body height 2022-02-25 20:33:00 174 cm [facility] weight 2022-02-25 20:33:00 68.04 [facility] BMI 2022-02-25 20:33:00 22.48 [facility] 2022-01-15 19:26:00 133 mm[Hg] [facility] Diastolic blood pressure 2022-01-15 19:26:00 77 mm[Hg] [facility] Heart rate 2022-01-15 19:26:00 83 /min [facility] height 2022-01-15 19:26:00 172.7 cm [facility] weight 2022-01-15 19:26:00 68.04 kg [facility] BMI 2022-01-15 19:26:00 22.81 kg/m2 [facility] Procedure Date / Time Performed Performing Clinician [facility] e ECG 12-LEAD 2022-02-25 20:46:00 Letha Guevara [facility] ECG 12-LEAD 2022-01-15 19:26:00 Gricelda Tom [facility] Planned Activity Planned Date Details Comments Source Future Scheduled 2022-06-08 COVID-19 Vaccination Uni versity [facility] Test 12:45:04 (#1) [code = COVID-19 And lorion Cancer Vaccination (#1)] Center Future Scheduled 2022-06-08 COVID-19 Vaccination Uni [facility] Test 12:45:04 (#1) [code = COVID-19 MD And erson Cancer Vaccination (#1)] Center Encounters Start End Encounter Admission Attending Care Care Encounter Source Date/Time Date/Time Type Type Clinicians Facility Department ID 2022-02-25 2022-02-25 Office BARRY Guevara [id number] [place] 15:30:00 16:03:53 Visit Letha JENSEN [id number] [facility] [id number] 1 2022-02-03 2022-02-03 Outpatient NATE TOM CAR [id number] [facility]BL 09:00:00 15:48:00 GRICELDA 2022-01-15 2022-01-15 Office BARRY Tom [id number] [place] 14:15:00 15:09:52 Visit Gricelda JENSEN [id number] He [facility] [id number] 2020-09-24 2020-09-24 Outpatient JULITA VAZ [facility] [id number] 08:54:05 11:51:35 Yo watkins 2020-09-20 2020-09-20 Outpatient DEBBIE CAI [facility] [id number] Univers 09:20:00 09:20:00 DEBBIE WADSWORTH [facility] 2019-11-06 2019-11-06 Outpatient DEBBIE CAI [facility] [id number] Univers 09:20:00 09:20:00 DEBBIE WADSWORTH [facility] Results Test Description Test Time Test Comments Results Result Comments Source ECG 12 lead 2022-02-25 20:46:00 Test Item Value Reference Range Interpretation Comme nts Lab Interpretation (test code = 84540-3) [facility] [id number] 19:26:00 Test Item Value Reference Range Interpretation Comments Lab Interpretation (test code = Normal 00477-4) [facility]
[2022-06-23] MEDS ORDERED: ONDANSETRON 4 MG/2 ML VIAL ONE (20:27)
[2022-06-23] MEDS ORDERED: FAMOTIDINE 20 MG/2 ML VIAL IV ONE (20:27)
[2022-06-23] MEDS ORDERED: NA CHLORIDE 0.9% 500 ML ONE ×2 (20:27→22:41)
[2022-06-23] MEDS ORDERED: CEFTRIAXONE 1000 MG/VIAL ONE (20:27)
[2022-06-23] MEDS ORDERED: MORPHINE 2 MG/ML SYR ONE (20:27)
[2022-06-23] MEDS ORDERED: NA CHLORIDE 0.9% 1,000 ML ONE (20:27)
[2022-06-23 20:36] LABS: Absolute Lymphocytes (CBC) 2.2 K/uL (0.7-4.9); Hematocrit 35.7 % (36.0-45.0); Lymphocytes % 32.1 % (15.3-44.8); MCV 85.8 fL (80-100); MPV 7.5 fL (7.6-11.3); RBC Red Blood Cell Count 4.17 M/uL (3.86-4.86)
[2022-06-23 20:48] LABS: Protime INR 0.95
[2022-06-23 20:50] LABS: Bilirubin Direct 0.1 mg/dL (0-0.2); Bilirubin Total 0.3 mg/dL (0.2-1.0); Magnesium 2.5 mg/dL (1.8-2.4); Potassium 3.8 mmol/L (3.5-5.1); Protein, Total 6.1 g/dL (6.4-8.2); Troponin High Sensitivity 11.6 pg/mL (<58.9)
--- NOTE | 2022-06-23 20:54 | RAD REPORT ---
EXAM DESCRIPTION: RAD - Chest Single View - 06/23/2022 8:45 pm CLINICAL HISTORY: COUGH COMPARISON: Chest Single View dated 06/22/2022; Chest Single View dated 06/20/2022; Chest Single Vie w dated 06/18/2019; Chest Pa And Lat (2 Views) dated 02/25/2019; Chest For Pe Angio dated 06/20/2022 FINDINGS: Lines: Pacemaker. Lungs: Coarsened interstitium. Apical scarring and calcifications. Mildly consolidative opacity at th e right lung base. Pleural: No significant pleural effusions or pneumothorax. Cardiac: The heart size is within normal limits. Mediastinum: Within normal limits. Bones: No acute fractures. Other: None IMPRESSION: Right middle lobe airspace disease noted on the chest CT from 06/20/2022 is grossly madelyn lar and could reflect pneumonia. No new acute process.
[2022-06-23 21:29] LABS: SARS-COV-2 RT PCR NEGATIVE (NEGATIVE)
--- NOTE | 2022-06-23 21:59 | ER ---
Nurse's Notes [facility] Name: Gracie Lewis Age: 89 yrs Sex: Female : 1930 Arrival Date: 06/23/2022 Time: 19:04 Bed 19 Private MD: Diagnosis: Pleurisy;Pneumonia due to other specified bacteria;Weakness;Chest pain on breathing Presentation: 06/23 19:16 Chief complaint: Patient's son or daughter states: Reports pt being discharged from [address] yesterday - was admitted for pneumonia and pleurisy. Pt c/o pain under diaphragm, and feeling fatigued/confused. Coronavirus screen: At this time, the client does not indicate any symptoms associated with coronavirus-19. Ebola Screen: No symptoms or risks identified at this time. Initial Sepsis Screen: Does the patient meet any 2 criteria? No. Patient's initial sepsis screen is negative. Does the patient have a suspected source of infection? No. Patient's initial sepsis screen is negative. Risk Assessment: Do you want to hurt yourself or someone else? Patient reports no desire to harm self or others. Onset of symptoms was June 23, 2022. 19:16 Method Of Arrival: Ambulatory [facility] 19:16 Acuity: ZUNILDA 3 [facility] Triage Assessment: 19:18 General: Appears in no apparent distress. comfortable, Behavior is calm, cooperative, ld1 appropriate for age. Pain: Complains of pain in diaphragm Pain does not radiate. Pain currently is 8 out of 10 on a pain scale. Quality of pain is described as sharp, shooting, throbbing. EENT: No signs and/or symptoms were reported regarding the EENT system. Neuro: Level of Consciousness is awake, alert, obeys commands, Oriented to person, place, time, situation, Appropriate for age. Cardiovascular: Capillary refill < 3 seconds Patient's skin is warm and dry. Respiratory: Airway is patent Respiratory effort is even, unlabored. GI: Abdomen is round non-distended. : No signs and/or symptoms were reported regarding the genitourinary system. Derm: No signs and/or symptoms reported regarding the dermatologic system. Musculoskeletal: No signs and/or symptoms reported regarding the musculoskeletal system. Historical: - Allergies: 19:18 moon; ld1 19:18 Lyrica; ld1 19:18 PENICILLINS; ld1 19:18 tramadol; ld1 - PMHx: 19:18 Gastric Reflux; insomnia; restless leg syndrome; neuropathy; Depression; GERD; LYMPHOMA;ld1 - Immunization history:: Adult Immunizations up to date, Client reports receiving the 2nd dose of the Covid vaccine. - Social history:: Smoking status: Patient denies any tobacco usage or history of. Patient/guardian denies using alcohol, Smoking status: . - Family history:: not pertinent. Screenin:21 Abuse screen: Denies threats or abuse. Denies injuries from another. Nutritional kd3 screening: No deficits noted. Tuberculosis screening: No symptoms or risk factors identified. Fall Risk Gait- Weak (10 pts.). Assessment: 19:21 General: Appears uncomfortable, ill, Behavior is calm, cooperative. Pain: Complains of kd3 pain in chest and diaphragm. Neuro: Level of Consciousness is awake, alert, obeys commands, Oriented to person, place, time, situation. Cardiovascular: Patient's skin is warm and dry. Respiratory: Airway is patent Trachea midline Respiratory effort is even, unlabored, Respiratory pattern is tachypnea. 19:50 Reassessment: No changes from previously documented assessment. Patient and/or family kd3 updated on plan of care and expected duration. Pain level reassessed. Patient is alert, oriented x 3, equal unlabored respirations, skin warm/dry/pink. 21:55 Reassessment: Patient and/or family updated on plan of care and expected duration. Pain kd3 level reassessed. Patient is alert, oriented x 3, equal unlabored respirations, skin warm/dry/pink. Patient states feeling better. 06/24 00:52 General: PT moved to hospital bed. pt seen resting in bed, eyes closed. . kd3 12:33 Reassessment: attempted to call report to second floor, was on hold with no answer. kc6 12:45 Reassessment: attempted to call report to second floor again. no answer at nurses kc6 station. Vital Signs: 06/23 19:16 BP 107 / 94; Pulse 88; Resp 20; Temp 98.7(O); Pulse Ox 96% on R/A; Weight 68.04 kg; ld1 Height 5 ft. 6 in. (167.64 cm); Pain 8/10; 19:50 BP 133 / 74; Pulse 79; Resp 19; Pulse Ox 94% on R/A; kd3 21:55 BP 115 / 58; Pulse 73; Resp 20; Pulse Ox 93% on R/A; kd3 06/24 00:04 BP 140 / 63; Pulse 79; Resp 19; Pulse Ox 97% on 2 lpm NC; kd3 06/23 19:16 Body Mass Index 24.21 (68.04 kg, 167.64 cm) ld1 ED Course: 06/23 19:04 Patient arrived in ED. dt4 19:10 Kailey Antonio, RN is Primary Nurse. kd3 19:18 Triage completed. ld1 19:18 Arm band placed on right wrist. ld1 19:21 No provider procedures requiring assistance completed. kd3 19:49 Bert Rodriguez MD is Attending Physician. lupis 20:41 Basic Metabolic Panel Sent. kd3 20:41 CBC with Diff Sent. kd3 20:41 LFT's Sent. kd3 20:41 Magnesium Sent. kd3 20:41 NT PRO-BNP Sent. kd3 20:41 Troponin HS Sent. kd3 20:41 PT-INR Sent. kd3 20:41 Lipase Sent. kd3 20:41 Lactate w/ 2H reflex if indic. Sent. kd3 20:47 XRAY Chest (1 view) In Process Unspecified. EDMS 21:57 Jorge Tracey MD is Hospitalizing Provider. lupis 22:27 US Extremity Venous W Compression [place] In Process Unspecified. EDMS 06/24 00:02 Urine Microscopic Only Sent. kd3 00:52 Pulse ox on. NIBP on. Door closed. Noise minimized. Lights dimmed. Warm blanket given. kd3 Pillow given. PO fluids given. Assisted to bedside commode. 00:54 Patient has correct armband on for positive identification. Placed in gown. Bed in low kd3 position. Call light in reach. Side rails up X2. 00:54 Patient admitted, IV remains in place. kd3 Administered Medications: 06/23 20:28 CANCELLED (Physician Discretion): fentaNYL (PF) 25 mcg IVP once kd3 20:40 Drug: NS 0.9% 500 ml Route: IV; Rate: bolus; Site: left antecubital; kd3 06/24 00:02 Follow up: IV Status: Completed infusion; IV Intake: 500ml kd3 06/23 20:40 Drug: Pepcid (famotidine) 20 mg Route: IVP; Site: left antecubital; [facility] 06/24 00:03 Follow up: Response: No adverse reaction [facility] 06/23 20:40 Drug: Zofran (Ondansetron) 4 mg Route: IVP; Site: left antecubital; [facility] 06/24 00:03 Follow up: Response: No adverse reaction [facility] 06/23 20:40 Drug: morphine 2 mg Route: IVP; Infused Over: 4 mins; Site: left antecubital; [facility] 06/24 00:03 Follow up: Response: No adverse reaction; Pain is decreased [facility] 06/23 21:22 Drug: NS 0.9% 1000 ml Route: IV; Rate: 125 ml/hr; Site: left antecubital; [facility] 21:22 Drug: Rocephin (cefTRIAXone) 1 grams Route: IV; Rate: per protocol; Site: left [facility] antecubital; 06/24 00:03 Follow up: Response: No adverse reaction; IV Status: Completed infusion [facility] 06/23 22:54 Drug: Zithromax (azithromycin) 250 mg Route: IVPB; Infused Over: 1 hrs; Site: left [facility] antecubital; 22:55 Drug: NS 0.9% 500 ml Route: IV; Rate: bolus; Site: left antecubital; [facility] 06/24 00:03 Follow up: IV Status: Completed infusion; IV Intake: 500ml [facility] Medication: 06/23 19:21 VIS not applicable for this client. kd3 Intake: 06/24 00:02 IV: 500ml; Total: 500ml. kd3 00:03 IV: 500ml; Total: 1000ml. kd3 Outcome: 06/23 21:59 Decision to Hospitalize by Provider. [facility] 06/24 00:04 Condition: stable kd3 00:53 Admitted to ER Hold. Please see [facility] for further documentation. kd3 00:53 Discharge instructions given to patient, family, Instructed on the need for admit, Demonstrated understanding of instructions, follow-up care. 13:41 Patient left the ED. kc6 Signatures: Dispatcher [employer] EDBert Rosales MD MD cha Davies, Jonathon, RN RN jd3 Dibbern, Lauren, RN RN [email or web address] Kailey Antonio RN RN kd3 Tsering Pena RN RN kc6 Fannie [email or web address] Corrections: (The following items were deleted from the chart) 07:47 07:46 Inserted saline lock: 20 gauge in right antecubital area, using aseptic jd3 technique. Blood collected. jd3 07:47 07:40 Missed attempt(s): 20 gauge in left antecubital area. Bleeding controlled, band jd3 aid applied, catheter tip intact. jd3
--- NOTE | 2022-06-23 22:00 | EDPHYS ---
Physician Documentation [facility] Name: Gracie Lewis Age: 89 yrs Sex: Female : 1930 Arrival Date: 06/23/2022 Time: 19:04 Bed 19 Private MD: ROYCE Physician Bert Rodriguez HPI: 06/23 21:42 This 89 yrs old Female presents to ER via Ambulatory with complaints of lupis Dizziness, NOT EATING, FATIGUE. 21:42 The patient presents with dizziness, generalized weakness. Onset: The symptoms/episode lupis began/occurred 1 day(s) ago. 21:43 The patient has shortness of breath at rest, with light activity. Duration: The lupis symptoms are continuous, and are steadily getting worse. The patient's shortness of breath is aggravated by light activity. Modifying factors: The symptoms are alleviated by nothing, the symptoms are aggravated by nothing. Historical: - Allergies: 19:18 moon; ld1 19:18 Lyrica; ld1 19:18 PENICILLINS; ld1 19:18 tramadol; ld1 - PMHx: 19:18 Gastric Reflux; insomnia; restless leg syndrome; neuropathy; Depression; GERD; LYMPHOMA;ld1 - Immunization history:: Adult Immunizations up to date, Client reports receiving the 2nd dose of the Covid vaccine. - Social history:: Smoking status: Patient denies any tobacco usage or history of. Patient/guardian denies using alcohol, Smoking status: . - Family history:: not pertinent. ROS: 21:45 Constitutional: Negative for fever, chills, and weight loss, Eyes: Negative for injury, lupis pain, redness, and discharge, ENT: Negative for injury, pain, and discharge, Neck: Negative for injury, pain, and swelling, Abdomen/GI: Negative for abdominal pain, nausea, vomiting, diarrhea, and constipation, Back: Negative for injury and pain, : Negative for injury, bleeding, discharge, and swelling, MS/Extremity: Negative for injury and deformity, Skin: Negative for injury, rash, and discoloration, Neuro: Negative for headache, weakness, numbness, tingling, and seizure, Psych: Negative for depression, anxiety, suicide ideation, homicidal ideation, and hallucinations, Allergy/Immunology: Negative for hives, rash, and allergies, Endocrine: Negative for neck swelling, polydipsia, polyuria, polyphagia, and marked weight changes, Hematologic/Lymphatic: Negative for swollen nodes, abnormal bleeding, and unusual bruising. 21:45 Cardiovascular: Positive for chest pain, with cough. 21:45 Respiratory: Positive for cough, shortness of breath, at rest. 21:45 Neuro: Positive for dizziness, weakness. Exam: 21:45 Constitutional: This is a well developed, well nourished patient who is awake, alert, lupis and in no acute distress. Head/Face: Normocephalic, atraumatic. Eyes: Pupils equal round and reactive to light, extra-ocular motions intact. Lids and lashes normal. Conjunctiva and sclera are non-icteric and not injected. Cornea within normal limits. Periorbital areas with no swelling, redness, or edema. ENT: Nares patent. No nasal discharge, no septal abnormalities noted. Tympanic membranes are normal and external auditory canals are clear. Oropharynx with no redness, swelling, or masses, exudates, or evidence of obstruction, uvula midline. Mucous membranes moist. Neck: Trachea midline, no thyromegaly or masses palpated, and no cervical lymphadenopathy. Supple, full range of motion without nuchal rigidity, or vertebral point tenderness. No Meningismus. Chest/axilla: Normal chest wall appearance and motion. Nontender with no deformity. No lesions are appreciated. Cardiovascular: Regular rate and rhythm with a normal S1 and S2. No gallops, murmurs, or rubs. Normal PMI, no JVD. No pulse deficits. Respiratory: Lungs have equal breath sounds bilaterally, clear to auscultation and percussion. No rales, rhonchi or wheezes noted. No increased work of breathing, no retractions or nasal flaring. Abdomen/GI: Soft, non-tender, with normal bowel sounds. No distension or tympany. No guarding or rebound. No evidence of tenderness throughout. Back: No spinal tenderness. No costovertebral tenderness. Full range of motion. Skin: Warm, dry with normal turgor. Normal color with no rashes, no lesions, and no evidence of cellulitis. MS/ Extremity: Pulses equal, no cyanosis. Neurovascular intact. Full, normal range of motion. Neuro: Awake and alert, GCS 15, oriented to person, place, time, and situation. Cranial nerves II-XII grossly intact. Motor strength 5/5 in all extremities. Sensory grossly intact. Cerebellar exam normal. Normal gait. Psych: Awake, alert, with orientation to person, place and time. Behavior, mood, and affect are within normal limits. 21:45 ECG was reviewed by the Attending Physician. Vital Signs: 19:16 BP 107 / 94; Pulse 88; Resp 20; Temp 98.7(O); Pulse Ox 96% on R/A; Weight 68.04 kg; ld1 Height 5 ft. 6 in. (167.64 cm); Pain 8/10; 19:50 BP 133 / 74; Pulse 79; Resp 19; Pulse Ox 94% on R/A; kd3 21:55 BP 115 / 58; Pulse 73; Resp 20; Pulse Ox 93% on R/A; kd3 06/24 00:04 BP 140 / 63; Pulse 79; Resp 19; Pulse Ox 97% on 2 lpm NC; kd3 06/23 19:16 Body Mass Index 24.21 (68.04 kg, 167.64 cm) ld1 MDM: 06/23 19:49 Patient medically screened. lupis 21:47 Differential diagnosis: Anxiety Reaction Bronchitis CHF exacerbation, anxiety, lupis Cholelithiasis costochondritis, gastritis, hiatal hernia, pleurisy, pneumonia, pneumothorax, pulmonary embolus, unstable angina, pneumonia, Psychogenic Pulmonary Embolism reactive airway disease, Unstable Angina. Antibiotic administration: Rocephin and Zithromax given. HEART Score: History: Slightly Suspicious (0), ECG: Non specific repolarization disturbance / LBTB / PM (1), Age: > or = 65 years (2), Risk Factors: > or = 3 Risk factors for atherosclerotic disease (2), [Hypertension] [+ Family HX] [Obesity] Troponin: < or = 1 x Normal Limit (0). Differential diagnosis: cardiac arrhythmia, generalized weakness. The patient's Wells Deep Vein Thrombosis Score was calculated as follows: Total Score: 0. This patient was found to be at low risk for a deep vein thrombosis by using the Well's assessment criteria Total Score: 0-2 Pts- Low Risk. Differential Diagnosis: Bronchitis Influenza Upper Respiratory Infection Sinusitis Pharyngitis Otitis Media Viral Syndrome Pneumonia. The patient's pulmonary embolism risk score was calculated as follows: Total Score: 0-2 points. This patient was found to be at low risk for a pulmonary embolism by using the Well's assessment criteria Total Score: 0-2 points. This patient was found to be at low risk for a pulmonary embolism by using the Well's assessment criteria. WENDY Risk Score: 1 - patient's age is greater or equal to 65 years, 1 - Three or more CAD risk factors, 1- Known CAD, TOTAL SCORE = 3. Immunization status: Pneumococcal vaccine: Influenza vaccine: Data reviewed: vital signs, nurses notes, lab test result(s), EKG, radiologic studies, CT scan, plain films. Data interpreted: quality assurance monitor: rate is 79 beats/min, Pulse oximetry: on room air is 94 %. 06/23 19:56 Order name: Basic Metabolic Panel; Complete Time: 21:31 [facility] 06/23 19:56 Order name: CBC with Diff; Complete Time: 21:31 [facility] 06/23 19:56 Order name: LFT's; Complete Time: 21:31 [facility] 06/23 19:56 Order name: Magnesium; Complete Time: 21:31 [facility] 06/23 19:56 Order name: NT PRO-BNP; Complete Time: 21:31 [facility] 06/23 19:56 Order name: PT-INR; Complete Time: 21:31 [facility] 06/23 19:56 Order name: Troponin HS; Complete Time: 21:31 [facility] 06/23 19:56 Order name: Lipase; Complete Time: 21:31 [facility] 06/23 19:56 Order name: Blood Culture Adult (2) [facility] 06/23 19:56 Order name: Lactate w/ 2H reflex if indic.; Complete Time: 21:31 [facility] 06/23 19:56 Order name: COVID-19/FLU A+B; Complete Time: 21:31 [facility] 06/23 19:56 Order name: Urine Microscopic Only; Complete Time: 05:48 [facility] 06/23 19:58 Order name: D-Dimer; Complete Time: 21:31 [facility] 06/24 00:02 Order name: Urine Dipstick-Ancillary; Complete Time: 05:48 [facility] 06/23 19:56 Order name: XRAY Chest (1 view); Complete Time: 21:31 [facility] 06/23 19:56 Order name: EKG; Complete Time: 19:57 [facility] 06/23 21:56 Order name: US Extremity Venous W Compression [place]; Complete Time: 22:56 [facility] 06/24 02:48 Order name: CBC with Automated Diff; Complete Time: 05:48 [facility] 06/24 03:21 Order name: Basic Metabolic Panel; Complete Time: 05:48 [facility] 06/24 03:21 Order name: NT PRO-BNP; Complete Time: 05:48 [facility] 06/24 08:30 Order name: RAD [facility] 06/23 19:56 Order name: Cardiac monitoring; Complete Time: 20:41 [facility] 06/23 19:56 Order name: EKG - Nurse/Tech; Complete Time: 20:21 [facility] 06/23 19:56 Order name: IV Saline Lock; Complete Time: 20:41 [facility] 06/23 19:56 Order name: Labs collected and sent; Complete Time: 20:41 [facility] 06/23 19:56 Order name: O2 Per Protocol; Complete Time: 20:41 [facility] 06/23 19:56 Order name: O2 Sat Monitoring; Complete Time: 20:41 [facility] 06/23 19:56 Order name: Urine Dipstick-Ancillary (obtain specimen); Complete Time: 00:02 [facility] EC:45 Rate is 78 beats/min. Rhythm is regular. QRS [place] is Normal. [place] interval is shortened lupis at 78 msec. QRS interval is normal. QT interval is normal. No Q waves. T waves are Normal. No ST changes noted. Clinical impression: NSR w/ Non-specific ST/T Changes and No evidence of ischemia. Administered Medications: 20:28 CANCELLED (Physician Discretion): fentaNYL (PF) 25 mcg IVP once kd3 20:40 Drug: NS 0.9% 500 ml Route: IV; Rate: bolus; Site: left antecubital; [facility] 06/24 00:02 Follow up: IV Status: Completed infusion; IV Intake: 500ml [facility] 06/23 20:40 Drug: Pepcid (famotidine) 20 mg Route: IVP; Site: left antecubital; 3 06/24 00:03 Follow up: Response: No adverse reaction [facility] 06/23 20:40 Drug: Zofran (Ondansetron) 4 mg Route: IVP; Site: left antecubital; [facility] 06/24 00:03 Follow up: Response: No adverse reaction [facility] 06/23 20:40 Drug: morphine 2 mg Route: IVP; Infused Over: 4 mins; Site: left antecubital; [facility] 06/24 00:03 Follow up: Response: No adverse reaction; Pain is decreased kd3 06/23 21:22 Drug: NS 0.9% 1000 ml Route: IV; Rate: 125 ml/hr; Site: left antecubital; kd3 21:22 Drug: Rocephin (cefTRIAXone) 1 grams Route: IV; Rate: per protocol; Site: left 3 antecubital; 06/24 00:03 Follow up: Response: No adverse reaction; IV Status: Completed infusion kd3 06/23 22:54 Drug: Zithromax (azithromycin) 250 mg Route: IVPB; Infused Over: 1 hrs; Site: left kd3 antecubital; 22:55 Drug: NS 0.9% 500 ml Route: IV; Rate: bolus; Site: left antecubital; kd3 06/24 00:03 Follow up: IV Status: Completed infusion; IV Intake: 500ml kd3 Disposition Summary: 06/23/22 21:59 Hospitalization Ordered Hospitalization Status: Inpatient Admission lupis Provider: Jorge Tracey lupis Condition: Stable lupis Problem: new lupis Symptoms: have improved lupis Bed/Room Type: Standard lupis Location: Telemetry/MedSurg (Inpatient)(06/24/22 12:17) dw Room Assignment: [facility](06/24/22 12:17) dw Diagnosis - Pleurisy lupis - Pneumonia due to other specified bacteria lupis - Weakness lupis - Chest pain on breathing lupis Forms: - Medication Reconciliation Form lupis - SBAR form lupis Signatures: Dispatcher [employer] Aliyah Kaur RN RN dw Anderson, Corey, MD MD cha Garcia, Cindy, RN RN Kathy Emerson RN RN ld1 Kailey Antonio RN RN kd3 Corrections: (The following items were deleted from the chart) 06/23 20:28 19:58 fentaNYL (PF) 25 mcg IVP once ordered. lupis kd3 22:30 21:59 Telemetry/MedSurg (observation) [facility] 22:30 21:59 lupis cg 06/24 12:17 06/23 22:30 [facility] ER HOLD cg dw 06/24 12:17 06/23 22:30 ERHOLD- cg dw
--- NOTE | 2022-06-23 22:33 | RAD REPORT ---
EXAM DESCRIPTION: US - Extrem Venous W Compress [place] - 06/23/2022 10:25 pm CLINICAL HISTORY: PAIN COMPARISON: Extremity Venous Uni Ltd dated 12/02/2016 TECHNIQUE: Real-time sonographic evaluation of the lower extremity deep venous systems was performed using color Doppler, grayscale, and compression. FINDINGS: Bilateral lower extremities. Normal compressibility, flow augmentation, phasic flow and spontaneous flow is identified in both the left and right lower extremity deep venous systems. No intraluminal filling defects seen. IMPRESSION: No DVT in either lower extremity.
[2022-06-23] MEDS ORDERED: NA CHLORIDE 0.9% 250 ML ONE (22:41)
[2022-06-23] MEDS ORDERED: AZITHROMYCIN 500 MG INJ IVPB ONE (22:42)
[2022-06-24 00:02] LABS: Urine Blood Negative (Negative); Urine Glucose Negative (Negative); Urine Protein Trace (Negative)
[2022-06-24 00:28] LABS: Urine Mucus Slight /HPF (None Seen)
[2022-06-24] MEDS ORDERED: FENTANYL CITR 100 MCG/2 ML IV PRN (01:45)
[2022-06-24] MEDS ORDERED: NA CHLORIDE 0.9% 1,000 ML IV SCH (01:45)
[2022-06-24] MEDS ORDERED: IPRATROPIUM BROM 0.5MG/2.5ML NEB PRN (01:45)
[2022-06-24] MEDS ORDERED: ALBUTEROL 2.5 MG/3 ML NEB SOL NEB PRN (01:45)
[2022-06-24] MEDS ORDERED: ONDANSETRON 4 MG/2 ML VIAL IV PRN (02:30)
[2022-06-24 02:47] LABS: Absolute Lymphocytes (CBC) 1.6 K/uL (0.7-4.9); Hematocrit 32.2 % (36.0-45.0); Lymphocytes % 25.3 % (15.3-44.8); MCV 85.7 fL (80-100); MPV 7.3 fL (7.6-11.3); RBC Red Blood Cell Count 3.76 M/uL (3.86-4.86)
[2022-06-24 02:56] LABS: Potassium 3.9 mmol/L (3.5-5.1)
[2022-06-24] MEDS ORDERED: NA CHLORIDE 0.9% 1,000 ML ONE (04:43)
[2022-06-24] MEDS ORDERED: FENTANYL CITR 100 MCG/2 ML ONE (07:26)
[2022-06-24] MEDS ORDERED: CEFTRIAXONE 1000 MG/VIAL ONE (08:11)
[2022-06-24] MEDS ORDERED: NA CHLORIDE 0.9% 50 ML IV ONE (08:11)
[2022-06-24] MEDS ORDERED: FAMOTIDINE 20 MG/2 ML VIAL IV ONE (08:11)
[2022-06-24] MEDS: FAMOTIDINE 20 MG/2 ML VIAL IV SCH ×2 (08:22→21:06)
--- NOTE | 2022-06-24 08:30 | RAD REPORT ---
EXAM DESCRIPTION: RAD - Chest Single View - 06/24/2022 5:41 am CLINICAL HISTORY: Chest Pain Chest pain. COMPARISON: Chest Single View dated 06/23/2022; Chest Single View dated 06/22/2022; Chest Single Vie w dated 06/20/2022; Chest Single View dated 06/18/2019 FINDINGS: Portable technique limits examination quality. Moderate bilateral pulmonary opacities are present, appearing stable to mildly improved since yesterd ay's study. This may represent pulmonary edema or an interstitial infection. Trace pleural fluid bila terally. The heart is normal in size. Dual lead pacer device is present.
[2022-06-24] MEDS ORDERED: OXYCODONE *CR* 10 MG TAB PO ONE (08:33)
[2022-06-24] MEDS: OXYCODONE HCL 5 MG TAB PO SCH ×3 (08:42→21:03)
[2022-06-24] MEDS ORDERED: AZITHROMYCIN IV 250 MG in NA CHLORIDE 0.9% 250 ML IVPB SCH (09:00)
[2022-06-24] MEDS ORDERED: CEFTRIAXONE 1,000 MG in NA CHLORIDE 0.9% 50 ML IVPB SCH (09:00)
[2022-06-24] MEDS: METHYLPREDNISOLONE 40 MG INJ IV SCH (13:55)
[2022-06-24] MEDS: Levofloxacin500mg IV 500 MG/100 ML BAG IV SCH (13:55)
[2022-06-24] MEDS: NA CHLORIDE 0.9% 1,000 ML IV SCH (13:57)
[2022-06-24] MEDS: ALBUTEROL 2.5 MG/3 ML NEB SOL NEB SCH ×2 (14:17→19:30)
[2022-06-24] MEDS: ENOXAPARIN 40 MG/0.4 ML SQ SCH (17:09)
--- NOTE | 2022-06-24 20:21 | HP ---
Date of Admission: 06/24/2022 Chief Complaint: Cough, congestion, shortness of breath, and feeling weak and tired. History Of Present Illness: This is an 89-year-old female patient who was discharged to go home from hospital day before yesterday. She was taking her medication as prescribed and yesterday patient's daughter contacted office and reported that the patient was not feeling good and with her complaints, she was advised to come back to emergency room and after she was evaluated, she was admitted to the hospital. This morning when I saw her, she denies any other new complaints except with overnight treatment in the emergency room, she has felt little better. The patient is not able to cough up any mucus, but has cough, chest congestion and has right-sided pleuritic chest pain and feels weak, tired, and short of breath. She has very poor appetite also. Allergies: TO PENICILLIN, CAUSING ANAPHYLACTIC REACTION. LYRICA CAUSED SUICIDAL THOUGHTS. TRAZODONE CAUSED HALLUCINATIONS. GABAPENTIN MADE HER FEEL ANGRY, AND DULOXETINE CAUSED SUICIDAL THOUGHTS. Review of Systems: Respiratory: As mentioned above. All other systems reviewed and negative. Medications: 1. ProAir inhaler 2 puffs every 4 hours as needed for shortness of breath. 2. Aspirin 81 mg daily. 3. Furosemide 20 mg 2 times a day. 4. Mirtazapine 15 mg at bedtime. 5. Oxycodone 10 mg 3 times a day. 6. Azithromycin 250 mg daily. 7. Cefuroxime 250 mg two times a day. Past Medical History: Significant for peripheral neuropathy, impaired fasting glucose, COPD, hyperlipidemia, gastroesophageal reflux disease, overactive bladder, osteoarthritis, depression. Past Surgical History: Cataract surgery, pacemaker placement in 2006 and 2016 and had battery replaced in 2021, cholecystectomy and partial hysterectomy and removal of squamous cell carcinoma. Family History: Father , had colon cancer and coronary artery disease. Mother , had colon cancer. Sister with hypertension. Social History: Prior history of smoking not at present time. Use of alcohol negative. Physical Examination: Vital Signs: Temperature 98.5, pulse 90, respiratory rate 25, blood pressure 115/92, and oxygen saturation 93% on 2 L nasal cannula oxygen. Height 5 feet 6 inches and weight 132 pounds. General: Patient appears weaker than normal, not in any distress. Awake, alert, and oriented x3. HEENT: Head atraumatic, normocephalic. Conjunctivae nonerythematous. Sclerae white. Mouth, no thrush or edema noted. Ears/Nose, no mass, lesion, discharge noted. Neck: Supple. No JVD, lymph nodes, bruit, thyromegaly noted. Lungs: Presence of some rales and wheezing noted in lower lung field. Heart: Normal heart sounds, no murmur or gallop. Abdomen: Soft, bowel sounds normal. No guarding, rigidity, tenderness, mass, hepatosplenomegaly, distention, or bruit noted. Extremities: No leg edema. No calf tenderness. Skin: No rash, ulcer, cellulitis. Lymphatics: No lymph node enlargement in neck, supraclavicular, infraclavicular region. Neuro: No focal neurological deficit. Chest: Unremarkable. External Genitalia: Deferred. Rectal: Deferred. Laboratory Data: Yesterday white count was 7, hemoglobin 11.6, and platelets 309. Today white count is 6.4, hemoglobin 10.6, and platelets 245. Yesterday sodium was 141, potassium 3.8, chloride 104, bicarb 29, BUN 14, creatinine 1.14, and glucose 94. Liver function tests unremarkable. ProBNP 2184. Lipase 119. This morning sodium is 142, potassium 3.9, chloride 112, bicarb 26, BUN 12, creatinine 0.92, and glucose 101. Urinalysis with trace esterase otherwise negative. COVID-19 test negative. Influenza A and B negative. Chest x-ray shows no change compared to the right middle lobe infiltrate. Impression: 1. Pneumonia. 2. Acute exacerbation of chronic obstructive pulmonary disease. 3. Anemia, unspecified. 4. Osteoarthritis, multiple sites. 5. Impaired fasting glucose. 6. Hyperlipidemia. 7. Gastroesophageal reflux disease. 8. Depression. Plan: We will go ahead and admit the patient to hospital for further evaluation and management of this problem. Patient is appropriate for inpatient and is expected to spend 2 midnights in hospital. We will continue her home medications per order. She was started on ceftriaxone and azithromycin and that is what she received during her last hospital stay and I will discontinue those 2 antibiotics and instead of that we will start her on Levaquin 500 mg IV daily starting today. Lovenox will be used for DVT prophylaxis. We will continue oxygen replacement therapy. Start her on IV steroid, Solu-Medrol 40 mg IV daily, first dose will be started today and also start her on inhaler, Dulera 2 puffs 2 times a day. I will see her tomorrow for followup. Plan of treatment discussed with her. Also communicated with her regarding her advanced directives and the patient clearly stated that in the event of cardiopulmonary arrest, she does not want any heroic measures like CPR, defibrillation, or ventilator support, and she would want God and nature take their course, and keep her comfortable, and DNR order will be written in the chart, and she also has informed me that she already has paperwork in place to donate her body to [facility]. CHUY/MODGinger Voice ID: [id number]
[2022-06-24] MEDS: DULERA 200/5 (MOMETASONE/FORMOTEROL) INHALER IH SCH (21:05)
[2022-06-24] MEDS: MIRTAZAPINE 15 MG TAB PO SCH (21:05)
[2022-06-25 02:22] VITALS: BMI 21.3
[2022-06-25] MEDS: NA CHLORIDE 0.9% 1,000 ML IV SCH (06:45)
[2022-06-25] MEDS: OXYCODONE HCL 5 MG TAB PO SCH ×3 (08:28→21:04)
[2022-06-25] MEDS: DULERA 200/5 (MOMETASONE/FORMOTEROL) INHALER IH SCH ×2 (08:29→21:00)
[2022-06-25] MEDS: FUROSEMIDE 20 MG TABLET PO SCH (08:29)
[2022-06-25] MEDS: ASPIRIN EC 81 MG TAB PO SCH (08:29)
[2022-06-25] MEDS: FAMOTIDINE 20 MG/2 ML VIAL IV SCH ×2 (08:33→21:12)
[2022-06-25] MEDS: METHYLPREDNISOLONE 40 MG INJ IV SCH ×3 (08:36→18:16)
[2022-06-25] MEDS: ALBUTEROL 2.5 MG/3 ML NEB SOL NEB SCH ×4 (08:51→23:05)
[2022-06-25] MEDS: Levofloxacin500mg IV 500 MG/100 ML BAG IV SCH (11:27)
[2022-06-25] MEDS ORDERED: IPRATROPIUM BROM 0.5MG/2.5ML NEB SCH (14:00)
[2022-06-25] MEDS ORDERED: METHYLPREDNISOLONE 125 MG INJ IV ONE (14:19)
[2022-06-25] MEDS: IPRATROPIUM BROM 0.5MG/2.5ML NEB SCH ×3 (14:20→23:05)
--- NOTE | 2022-06-25 15:45 | PN ---
Date of Progress Note: 06/25/2022 Subjective: The patient was seen this morning for followup. Her daughter was with her at bedside. Today, she is not feeling good, and in fact, she is having more complaints today compared to yesterda y with shortness of breath. Her right-sided pleuritic chest pain is better, but she is having more d ifficulty breathing. She is not coughing up any mucus. No hemoptysis. She is also having generaliz ed pain in her chest, arms, and legs. Appetite is poor. Objective: Vital Signs: Reviewed. HEENT: Examination unremarkable. Lungs: Bilateral good equal air entry. Presence of some rales noted in right lung base, but also haro s scattered wheezing in both lung mcnally. Not using accessory muscles of respiration at rest. Heart: Heart sounds normal. Abdomen: Soft. Bowel sounds normal. No guarding, rigidity, tenderness, distention. Extremities: No leg edema. Impression: 1.Pneumonia. 2.Acute exacerbation of chronic obstructive pulmonary disease. 3.Acute respiratory failure with hypoxia. 4.Osteoarthritis, multiple sites. 5.Insomnia. Plan: We will go ahead and continue her home medications. Continue DVT prophylaxis. We will contin ue current antibiotic, which is Levaquin. I will go ahead and increase the dose of Solu-Medrol 40 mg IV from once a day to 3 times a day. Continue nebulizer treatment, albuterol, and add Atrovent nebulizer treatment. We will continue current inhaler, and we will see h er tomorrow for followup. CHUY/MODL Voice ID: [id number] Report ID: [id number]
[2022-06-25 15:57] LABS: Arterial Blood Carboxyhemoglob 0.8 % (0-1.5); Blood Gas Oxyhemoglobin 95.4 % (94-97); Blood O2 Saturation 97.1 % (92-98.5)
[2022-06-25] MEDS: ENOXAPARIN 40 MG/0.4 ML SQ SCH (18:16)
[2022-06-25] MEDS: MIRTAZAPINE 15 MG TAB PO SCH (21:04)
[2022-06-26] MEDS: METHYLPREDNISOLONE 40 MG INJ IV SCH ×3 (00:18→17:19)
[2022-06-26] MEDS: ALBUTEROL 2.5 MG/3 ML NEB SOL NEB SCH ×6 (03:10→23:15)
[2022-06-26] MEDS: IPRATROPIUM BROM 0.5MG/2.5ML NEB SCH ×6 (03:10→23:15)
[2022-06-26 05:56] LABS: Absolute Lymphocytes (CBC) 0.9 K/uL (0.7-4.9); Hematocrit 40.7 % (36.0-45.0); MCV 86.2 fL (80-100); MPV 7.1 fL (7.6-11.3); RBC Red Blood Cell Count 4.72 M/uL (3.86-4.86)
[2022-06-26] MEDS: NA CHLORIDE 0.9% 1,000 ML IV SCH (06:09)
[2022-06-26 06:11] LABS: Magnesium 2.4 mg/dL (1.8-2.4); Potassium 4.8 mmol/L (3.5-5.1)
[2022-06-26] MEDS: DULERA 200/5 (MOMETASONE/FORMOTEROL) INHALER IH SCH ×2 (09:00→20:58)
--- NOTE | 2022-06-26 09:33 | RAD REPORT ---
EXAM DESCRIPTION: Danyel Single View06/26/2022 9:17 am CLINICAL HISTORY: Shortness of breath COMPARISON: June 24, 2022 FINDINGS: Significant worsening in diffuse bilateral pulmonary opacities. There may be small bilate ral pleural effusions Heart is normal size. Pacemaker leads in place IMPRESSION: Significant worsening in moderate diffuse bilateral pulmonary opacities which may repres ent pneumonia or pulmonary edema
[2022-06-26] MEDS: FAMOTIDINE 20 MG/2 ML VIAL IV SCH ×2 (10:38→20:55)
[2022-06-26] MEDS: ASPIRIN EC 81 MG TAB PO SCH (10:39)
[2022-06-26] MEDS: FUROSEMIDE 20 MG TABLET PO SCH (10:39)
[2022-06-26] MEDS: OXYCODONE HCL 5 MG TAB PO SCH ×3 (10:39→20:53)
[2022-06-26] MEDS: Levofloxacin500mg IV 500 MG/100 ML BAG IV SCH (11:53)
[2022-06-26] MEDS: ENOXAPARIN 40 MG/0.4 ML SQ SCH (17:19)
[2022-06-26] MEDS: MIRTAZAPINE 15 MG TAB PO SCH (20:54)
[2022-06-27] MEDS: METHYLPREDNISOLONE 40 MG INJ IV SCH ×3 (00:39→17:15)
[2022-06-27] MEDS: IPRATROPIUM BROM 0.5MG/2.5ML NEB SCH ×5 (03:25→20:00)
[2022-06-27] MEDS: ALBUTEROL 2.5 MG/3 ML NEB SOL NEB SCH ×5 (03:25→20:00)
[2022-06-27] MEDS: NA CHLORIDE 0.9% 1,000 ML IV SCH ×2 (05:07→17:15)
[2022-06-27] MEDS: OXYCODONE HCL 5 MG TAB PO SCH ×3 (07:56→20:50)
[2022-06-27] MEDS: DULERA 200/5 (MOMETASONE/FORMOTEROL) INHALER IH SCH ×2 (09:00→20:50)
[2022-06-27] MEDS: ASPIRIN EC 81 MG TAB PO SCH (09:37)
[2022-06-27] MEDS: FUROSEMIDE 20 MG TABLET PO SCH (09:37)
[2022-06-27] MEDS: FAMOTIDINE 20 MG/2 ML VIAL IV SCH ×2 (09:38→20:52)
[2022-06-27] MEDS: Levofloxacin500mg IV 500 MG/100 ML BAG IV SCH (13:00)
[2022-06-27] MEDS: ENOXAPARIN 40 MG/0.4 ML SQ SCH (17:15)
[2022-06-27] MEDS: MIRTAZAPINE 15 MG TAB PO SCH (20:52)
--- NOTE | 2022-06-27 21:03 | PN ---
Date of Progress Note: 06/26/2022 Subjective: The patient was seen this morning for followup. She was lying in bed, on BiPAP, which w as started yesterday for worsening of shortness of breath. Her daughter was present with her at beds hawa. Yesterday when the patient's shortness of breath problem got worse, we started her on BiPAP and we also increased dose of her Solu-Medrol. Overall, her condition has improved today. Objective: Vital Signs: Reviewed. HEENT: Unremarkable. Lungs: Bilateral good equal air entry. Clear to auscultation. Heart: Sounds normal. Abdomen: Soft. Bowel sounds normal. No guarding, rigidity, tenderness, or distention. Extremities: No leg edema. Laboratory Data: White count 15.7, hemoglobin 13.3, and platelets 427. Sodium 139, potassium 4.8, c hloride 109, bicarb 23, BUN 19, creatinine 1.29, glucose 156, and magnesium 2.4. Impression: 1.Acute exacerbation of chronic obstructive pulmonary disease. 2.Acute respiratory failure with hypoxia. 3.Pneumonia. Plan: We will go ahead and continue current medication. Continue current oxygen replacement therapy and BiPAP support. Continue current DVT prophylaxis, antibiotics, IV steroid, nebulizer treatment a nd inhaler per order. Plan of treatment discussed with the patient and her daughter and hopefully we will see ongoing improvement now with current therapy. I will see her tomorrow for followup. CHUY/MODL Voice ID: [id number] Report ID: [id number]
--- NOTE | 2022-06-27 22:00 | PN ---
Date of Progress Note: 06/27/2022 Subjective: Patient was seen this morning for followup. She was lying in bed on nasal cannula oxyge n, doing much better compared to yesterday. Her daughter was with her at bedside. Objective: Vital Signs: Reviewed. HEENT: Unremarkable. Lungs: Clear to auscultation. Heart: Sounds normal. Abdomen: Soft. Bowel sounds normal. No guarding, rigidity, tenderness, or distention. Extremities: No leg edema. Impression: 1.Acute respiratory failure with hypoxia. 2.Acute exacerbation of chronic obstructive pulmonary disease. 3.Pneumonia. 4.Hypertension. Plan: The patient's blood pressure today was elevated 160/80 with heart rate 120, appeared to be reg ular when I examined her. EKG was ordered, we will follow up on that. Continue current oxygen, anti biotic, steroids, and inhaler. I will see her tomorrow for followup. Continue current IV steroid an d possible discharge to go home day after tomorrow depending on her condition. CHUY/MODL Voice ID: [id number] Report ID: [id number]
[2022-06-28] MEDS: ALBUTEROL 2.5 MG/3 ML NEB SOL NEB SCH ×6 (00:35→19:20)
[2022-06-28] MEDS: IPRATROPIUM BROM 0.5MG/2.5ML NEB SCH ×6 (00:35→19:20)
[2022-06-28] MEDS: METHYLPREDNISOLONE 40 MG INJ IV SCH ×2 (01:21→08:33)
[2022-06-28] MEDS: DULERA 200/5 (MOMETASONE/FORMOTEROL) INHALER IH SCH ×2 (04:00→20:42)
[2022-06-28 06:33] LABS: Absolute Lymphocytes (CBC) 0.6 K/uL (0.7-4.9); Hematocrit 36.5 % (36.0-45.0); Lymphocytes % 5.7 % (15.3-44.8); MCV 85.3 fL (80-100); MPV 7.3 fL (7.6-11.3); RBC Red Blood Cell Count 4.28 M/uL (3.86-4.86)
[2022-06-28 06:58] LABS: Magnesium 2.5 mg/dL (1.8-2.4); Potassium 4.3 mmol/L (3.5-5.1)
--- NOTE | 2022-06-28 07:50 | RAD REPORT ---
EXAM DESCRIPTION: RAD - Chest Single View - 06/28/2022 6:32 am CLINICAL HISTORY: pneumonia, COPD COMPARISON: Chest Single View dated 06/26/2022; Chest Single View dated 06/24/2022; Chest Single Vie w dated 06/23/2022; Chest Single View dated 06/22/2022; Chest For Pe Angio dated 06/20/2022; Extrem V enous W Compress [place] dated 06/23/2022 FINDINGS: Lines: Pacemaker. Lungs: Widespread interstitial airspace disease. Aeration of the mid lungs is slightly improved. Pleural: Small bilateral pleural effusions. Cardiac: The heart size is within normal limits. Mediastinum: Within normal limits. Bones: No acute fractures. Other: None IMPRESSION: Bilateral interstitial and airspace disease similar to slightly improved compared with 08/26/2021 and likely representing a combination of edema and pneumonia. Small layering pleural effusi ons.
[2022-06-28] MEDS: ASPIRIN EC 81 MG TAB PO SCH (08:32)
[2022-06-28] MEDS: OXYCODONE HCL 5 MG TAB PO SCH ×3 (08:32→20:43)
[2022-06-28] MEDS: FUROSEMIDE 20 MG TABLET PO SCH (08:33)
[2022-06-28] MEDS: FAMOTIDINE 20 MG/2 ML VIAL IV SCH (08:33)
[2022-06-28] MEDS ORDERED: FUROSEMIDE 20 MG/ 2ML VIAL IV ONE (12:00)
[2022-06-28] MEDS: Levofloxacin500mg IV 500 MG/100 ML BAG IV SCH (12:19)
[2022-06-28] MEDS: ENOXAPARIN 40 MG/0.4 ML SQ SCH (17:03)
[2022-06-28] MEDS: ACETAMINOPHEN 325 MG TABLET PO PRN (17:14)
[2022-06-28] MEDS: MIRTAZAPINE 15 MG TAB PO SCH (20:42)
[2022-06-28] MEDS: predniSONE 20 MG TAB PO SCH (20:42)
[2022-06-28] MEDS: FAMOTIDINE 20 MG TAB PO SCH (20:42)
--- NOTE | 2022-06-28 22:51 | PN ---
Date of Progress Note: 06/28/2022 Subjective: The patient was seen this morning for followup. She is overall feeling much better than yesterday, on nasal cannula oxygen. Her daughter was with her at bedside. She has chronic pain, fo r which she takes oxycodone. Objective: Vital Signs: Reviewed. HEENT: Unremarkable. Lungs: Bilateral good equal air entry presence of some rales noted in lower lung mcnally. Not using accessory muscles of respiration at rest. Heart: Sounds normal. Abdomen: Soft. Bowel sounds normal. No guarding, rigidity, tenderness, distention. Extremities: No leg edema. Laboratory Data: White count 10, hemoglobin 12.2, platelets 332. Sodium 142, potassium 4.3, chlorid e 112, bicarb 24, BUN 35, creatinine 1.32, glucose 135. Impression: 1.Pneumonia. 2.Acute exacerbation of chronic obstructive pulmonary disease. 3.Acute respiratory failure with hypoxia. 4.Pulmonary edema. Plan: The patient's chest x-ray has shown some evidence of pulmonary edema. She is on oral Lasix, b ut today we will give 20 mg IV Lasix x1 dose. Continue oxygen replacement therapy, nebulizer treatme nt, steroid antibiotics. Continue current DVT prophylaxis. I will see her tomorrow for followup. CHUY/MODL Voice ID: [id number] Report ID: [id number]
[2022-06-29] MEDS: IPRATROPIUM BROM 0.5MG/2.5ML NEB SCH ×7 (03:45→23:50)
[2022-06-29] MEDS: ALBUTEROL 2.5 MG/3 ML NEB SOL NEB SCH ×7 (03:45→23:50)
[2022-06-29 04:35] LABS: Magnesium 2.3 mg/dL (1.8-2.4); Potassium 4.5 mmol/L (3.5-5.1)
[2022-06-29] MEDS: ASPIRIN EC 81 MG TAB PO SCH (08:06)
[2022-06-29] MEDS: OXYCODONE HCL 5 MG TAB PO SCH ×3 (08:07→16:59)
[2022-06-29] MEDS: FUROSEMIDE 20 MG TABLET PO SCH (08:07)
[2022-06-29] MEDS: FAMOTIDINE 20 MG TAB PO SCH ×2 (08:09→20:04)
[2022-06-29] MEDS: predniSONE 20 MG TAB PO SCH ×2 (08:09→20:04)
[2022-06-29] MEDS: DULERA 200/5 (MOMETASONE/FORMOTEROL) INHALER IH SCH ×2 (08:09→20:04)
[2022-06-29] MEDS: Levofloxacin500mg IV 500 MG/100 ML BAG IV SCH (11:38)
--- NOTE | 2022-06-29 12:18 | RAD REPORT ---
EXAM DESCRIPTION: RAD - Chest Pa And Lat (2 Views) - 06/29/2022 10:56 am CLINICAL HISTORY: pneumonia, pulm edema Chest pain. COMPARISON: Chest Single View dated 06/28/2022; Chest Single View dated 06/26/2022; Chest Single Vie w dated 06/24/2022; Chest Single View dated 06/23/2022 FINDINGS: Emphysematous changes are present throughout the lungs. Bibasilar pulmonary opacities are seen with bilateral pleural effusions, slightly larger on the left. The heart is normal in size. Dual lead pacer device is present. Compared to yesterday's examination, however, pulmonary aeration is im proved. IMPRESSION: Since 06/28/2022, there has been mild to moderate improvement in lung aeration. Bibasilar pulmonary opacities with pleural effusions, greater on the left, persist.
--- NOTE | 2022-06-29 13:01 | EKG ---
Test Date: 2022-06-23 Test Time: 20:18:42 Healthcare Associate: MARY MEASUREMENT RESULTS: Intervals: Rate: 78 OH: 96 QRSD: 86 QT: 386 QTc: 440 Wilbur: P: 87 OH: 96 QRS: 92 T: 83 INTERPRETIVE STATEMENTS: Sinus rhythm with short OH Rightward axis Borderline ECG Compared to ECG 06/23/2022 20:17:41 Short OH interval now present Electronically Signed On 06-29-22 12:54:37 DOCTOR OF OSTEOPATHY by Jim Yates
[2022-06-29] MEDS: ENOXAPARIN 40 MG/0.4 ML SQ SCH (17:00)
[2022-06-29] MEDS: MIRTAZAPINE 15 MG TAB PO SCH (20:04)
[2022-06-30] MEDS: ALBUTEROL 2.5 MG/3 ML NEB SOL NEB SCH ×6 (03:30→23:15)
[2022-06-30] MEDS: IPRATROPIUM BROM 0.5MG/2.5ML NEB SCH ×6 (03:30→23:15)
--- NOTE | 2022-06-30 06:32 | PN ---
Date of Progress Note: 06/29/2022 Subjective: The patient was seen this morning for followup. No new complaints or problems reported by her. Overall, she feels better on nasal cannula oxygen. Her appetite is improving. Objective: Vital Signs: Reviewed. HEENT: Unremarkable. Lungs: Clear to auscultation except very minimal right basal rales. Not in any respiratory distress . Heart: Sounds normal. Abdomen: Soft. Bowel sounds normal. No guarding, rigidity, tenderness, distention. Extremities: No leg edema. Laboratory Data: Sodium 142, potassium 4.5, chloride 112, bicarb 24, BUN 37, creatinine 1.40, glucos e 142. Chest x-ray done later today shows improvement in bilateral lung opacities. Impression: 1.Pneumonia. 2.Acute exacerbation of chronic obstructive pulmonary disease. 3.Acute respiratory failure with hypoxia. 4.Osteoarthritis, multiple sites. 5.Peripheral neuropathy. Plan: We will continue current oxygen and current steroids. We will go ahead and continue her pain medication, which is oxycodone. She is requesting medication to be given at 8 a.m., 12 noon, and 5 p .m. instead of different timing, because this is how she takes it at home and I will see her tomorrow for followup. CHUY/MODL Voice ID: [id number] Report ID: [id number]
[2022-06-30] MEDS: OXYCODONE HCL 5 MG TAB PO SCH ×3 (09:32→17:19)
[2022-06-30] MEDS: FAMOTIDINE 20 MG TAB PO SCH ×2 (09:33→20:13)
[2022-06-30] MEDS: predniSONE 20 MG TAB PO SCH ×2 (09:33→20:13)
[2022-06-30] MEDS: DULERA 200/5 (MOMETASONE/FORMOTEROL) INHALER IH SCH ×2 (09:33→20:14)
[2022-06-30] MEDS: FUROSEMIDE 20 MG TABLET PO SCH (09:33)
[2022-06-30] MEDS: ASPIRIN EC 81 MG TAB PO SCH (09:33)
[2022-06-30] MEDS ORDERED: levoFLOXacin 500 MG TAB PO SCH (12:00)
--- NOTE | 2022-06-30 13:37 | ECHO ---
HEIGHT: 5 ft 6 in WEIGHT: 132 lb 6 oz DATE OF STUDY: 06/30/[address]: Jorge Tracey MD 2-DIMENSIONAL: YES M.MODE: YES DOPPLER: YES COLOR FLOW: YES TDS: NO PORTABLE: YES DEFINITY: NO BUBBLE STUDY: NO DIAGNOSIS: CONGESTIVE HEART FAILURE CARDIAC HISTORY: CATHERIZATION: NO SURGERY: NO PROSTHETIC VALVE: NO PACEMAKER: YES MEASUREMENTS (cm) DIASTOLIC (NORMALS) SYSTOLIC (NORMALS) IVSd 0.9 (0.6-1.2) LA Diam 2.7 (1.9-4.0) LVEF 50-55% LVIDd 3.8 (3.5-5.7) LVIDs 3.0 (2.0-3.5) %FS 21% LVPWd 1.0 (0.6-1.2) Ao Diam 2.3 (2.0-3.7) 2 DIMENSIONAL ASSESSMENT: RIGHT ATRIUM: NORMAL LEFT ATRIUM: NORMAL RIGHT VENTRICLE: NORMAL LEFT VENTRICLE: NORMAL TRICUSPID VALVE: MITRAL VALVE: MITRAL ANNULAR CALCIFICATION PULMONIC VALVE: NORMAL AORTIC VALVE: CALCIFIED, NO AORTIC STENOSIS PERICARDIAL EFFUSION: NONE AORTIC ROOT: NORMAL LEFT VENTRICULAR WALL MOTION: MILD GLOBAL HYPOKINESIS. DOPPLER/COLOR FLOW: SEE BELOW. COMMENTS: 1. LOW NORMAL LEFT VENTRICULAR EJECTION FRACTION 50-55%. 2. MILD GLOBAL HYPOKINESIS. 3. SEVERE MITRAL ANNULAR CALCIFICATION WITH MODERATE TO SEVERE MITRAL STENOSIS AND MILD MITRAL REGURGITATION. 4. MILD TRICUSPID REGURGITATION. 5. SEVERE PLUMONARY HYPERTENSION WITH RIGHT VENTRICULAR SYSTOLC PRESSURE >60 mmHg. 6. DIASTOLIC DYSFUNCTION. TECHNOLOGIST: Zac MARTINEZ
[2022-06-30] MEDS: ACETAMINOPHEN 325 MG TABLET PO PRN (15:44)
[2022-06-30] MEDS ORDERED: ENOXAPARIN 30 MG/0.3 ML SQ SCH (17:00)
[2022-06-30 17:51] VITALS: O2SAT 92
[2022-06-30] MEDS: MIRTAZAPINE 15 MG TAB PO SCH (20:13)
[2022-07-01] MEDS: IPRATROPIUM BROM 0.5MG/2.5ML NEB SCH ×2 (03:15→08:00)
[2022-07-01] MEDS: ALBUTEROL 2.5 MG/3 ML NEB SOL NEB SCH ×2 (03:15→08:00)
[2022-07-01 05:42] VITALS: TEMP 98.3
[2022-07-01] MEDS: OXYCODONE HCL 5 MG TAB PO SCH (07:28)
[2022-07-01] MEDS: ASPIRIN EC 81 MG TAB PO SCH (09:24)
[2022-07-01] MEDS: FAMOTIDINE 20 MG TAB PO SCH (09:25)
[2022-07-01] MEDS: predniSONE 20 MG TAB PO SCH (09:25)
[2022-07-01] MEDS: FUROSEMIDE 20 MG TABLET PO SCH (09:26)
--- NOTE | 2022-07-01 09:54 | PN ---
Date of Progress Note: 06/30/2022 Subjective: The patient was seen this morning for followup. Her daughter was with her at bedside. When I saw her, she had just returned back to her bed from bathroom and she was having shortness of b reath with minimal activity and recovered quickly after sitting down with oxygen use. Overall, she f eels better compared to before. Objective: Vital Signs: Reviewed. HEENT: Unremarkable. Lungs: Clear to auscultation. No wheezing. No rales. Heart: Sounds normal. Abdomen: Soft. Bowel sounds normal. No guarding, rigidity, tenderness, distention. Extremity: No leg edema. Impression: 1.Pneumonia. 2.Acute exacerbation of chronic obstructive pulmonary disease. 3.Acute respiratory failure with hypoxia. 4.Generalized weakness. 5.Debility. Plan: The patient's echocardiogram is pending, hopefully it will be done today. I have requested [facility] to help make arrangements for home oxygen and respiratory therapies. We will check room air oxygen saturation to see if she would qualify for home oxygen or not. I will see her tomorrow f or followup. The patient will need home health and home physical therapy and Social Service will ass ist with that. CHUY/SOCRATESL Voice ID: [id number] Report ID: [id number]
[2022-07-01 10:56] VITALS: BP 115/71
--- NOTE | 2022-07-01 23:01 | DS ---
Date of Discharge: 07/01/2022 Disposition: Discharged to go home. Physical Examination: HEENT: Unremarkable. Lungs: Clear to auscultation. Heart: Sounds normal. Abdomen: Soft. Bowel sounds normal. No guarding, rigidity, tenderness, or distention. Extremities: No leg edema. Laboratory Data: Echocardiogram from 06/30/2022 shows ejection fraction 50% to 55%, mild global hypo kinesis, severe mitral annular calcification with [id number] mitral stenosis and mild mitral regurgitation, severe pulmonary hypertension, and diastolic dysfunction. On 06/23/2022; white count was 7, hemoglobin 11.6, platelets 309. On 06/28/2022; white count 10, hemoglobin 12.2, platelets 332 . On 06/23/2022; sodium 141, potassium 3.8, chloride 104, bicarb 29, BUN 14, creatinine 1.14, glucos e 94. Liver function tests unremarkable. Her proBNP 2184. On 06/29/2022; sodium 142, potassium 4.5 , chloride 112, bicarb 24, BUN 37, creatinine 1.40, glucose 142. Hospital Course: This is an 89-year-old very pleasant female patient admitted to the hospital with c ough, congestion, shortness of breath, feeling weak and tired. Please see dictated H and P for more information. After patient was evaluated in the emergency room, she was admitted to the hospital wit h pneumonia and acute exacerbation of COPD. The patient also had acute respiratory failure with hypo evelyne requiring oxygen replacement. Her condition deteriorated during this hospitalization to the exte nt that she also required a BiPAP and IV steroids and IV Lasix. Chest x-ray had shown some pulmonary edema along with pneumonia and all these lung findings improved significantly. we have stopped her oxygen and she has been able to maintain oxygen saturation around 92% to 94% on room air. Overall, her condition has improved and today, she was discharged to go home in stable condition wi th above-mentioned medication instructions. On outpatient basis, we will have her follow up with the cement rubber for valvular heart disease. Final Diagnoses: 1.Acute exacerbation of chronic obstructive pulmonary disease. 2.Acute respiratory failure with hypoxia. 3.Mitral stenosis. 4.Pulmonary hypertension. 5.Pneumonia. 6.Anemia, unspecified. 7.Osteoarthritis, multiple sites. 8.Impaired fasting glucose. 9.Hyperlipidemia. 10.Gastroesophageal reflux disease. 11.Depression. 12.Chronic kidney disease, stage 3B. Discharge Medications And Instructions: 1.Continue all prior home medication except stop azithromycin and stop cefuroxime. 2.Stop Anoro Ellipta inhaler. 3.Start Trelegy inhaler 1 puff by mouth daily, rinse mouth with water after using it. 4.Start prednisone 10 mg, patient to take 2 tablets by mouth 2 times a day for 4 days, then 2 tablet s by mouth daily for 4 days, then 1 tablet by mouth daily for 4 days, then half a tablet by mouth sanford ly for 4 days, then stop. 5.Levaquin 500 mg daily for 1 week. 6.Follow up at my office next week. 7.Albuterol and Atrovent nebulizer treatment 4 times a day as needed. CHUY/MODL Voice ID: [id number] Report ID: [id number]
== END 2022-07-01 10:18 | disposition home health service (06) | DRG 177 ==
LOC: ER 19:00 → ERHOLD 23:07 → 2ND 06-24 13:27
PROVIDERS: ADMIT Internal Medicine; ATTEND Internal Medicine
PROC: 5A09557 Assistance with Respiratory Ventilation, Greater than 96 Consecutive Hours, Continuous Positive Airway Pressure (ICD-10-PCS; principal; 2022-06-25)
DX: J15.8 Pneumonia due to other specified bacteria (principal); J96.01 Acute respiratory failure with hypoxia; J44.0 Chronic obstructive pulmonary disease with (acute) lower respiratory infection; J44.1 Chronic obstructive pulmonary disease with (acute) exacerbation; J81.1 Chronic pulmonary edema; D64.9 Anemia, unspecified; F32.A Depression, unspecified; I12.9 Hypertensive chronic kidney disease with stage 1 through stage 4 chronic kidney disease, or unspecified chronic kidney disease; N18.32 Chronic kidney disease, stage 3b; G62.9 Polyneuropathy, unspecified; M19.09 Primary osteoarthritis, other specified site; I05.0 Rheumatic mitral stenosis; E78.5 Hyperlipidemia, unspecified; K21.9 Gastro-esophageal reflux disease without esophagitis; G89.29 Other chronic pain; G47.00 Insomnia, unspecified; G25.81 Restless legs syndrome; R73.01 Impaired fasting glucose; Z66 Do not resuscitate; Z88.0 Allergy status to penicillin; Z88.5 Allergy status to narcotic agent; Z88.8 Allergy status to other drugs, medicaments and biological substances; Z90.49 Acquired absence of other specified parts of digestive tract; Z90.711 Acquired absence of uterus with remaining cervical stump; Z91.018 Allergy to other foods; Z20.822 Contact with and (suspected) exposure to COVID-19
CPT/HCPCS: 0240U; 36415; 71045; 71046; 80048; 80076; 81003; 81015; 82805; 83605; 83690; 83735; 83880; 84484; 85025; 85379; 85610; 87040; 93005; 93306; 93970; 94640; 94660; 94760; 96361; 96365; 96366; 96375; 97161; 99285; J0456; J1650; J1940; J2270; J2405; J2920; J2930; J3010; J3535; J7030; J7040; J7050; J7512; J7613; J7644

== ENCOUNTER 2022-07-17 11:07 | Inpatient (IN) | payer OTHER ==
--- OUTSIDE RECORDS SUMMARY | 2022-07-17 11:10 | XMS REPORT | Clinical Summary ---
:1930 Author Organization [facility] Address [address] [place] [address] Care Team Providers Name Role Phone Polly Abbott MD Unavailable Polly Abbott MD Unavailable Jorge Tracey MD Unavailable Fannie Macias MD Primary Care Provider [phone] Allergies Active Allergy Reactions Severity Noted [...] Vaccination (#1) 04/15/1931 Results Not on fileafter 07/17/2021 Insurance Payer Benefit Plan / Subscriber ID Effective Dates Phone Addre ss Type Group AETNA MEDICARE AETNA MEDICARE [id number] 2016-[place] [address] [place] [address] [address] ([address]) [place] [id number] Gracie Lewis Personal/Family Self 1930 [address]Home) [place] [id number] Gracie Lewis Personal/Family Self 1930 [address] (Home) [place] [id number] Advance Directives Type Date Recorded Patient Applications Sales Consultant Explanati on Advance Directives: 08/30/2008 Directive to Physicians Living Will and Family or Surrogates-Maximo De La Garza Advance Directives: 08/30/2008 Medical Elder r of Asbestos Brake Lining Finisher Helper Medical Power of Asbestos Brake Lining Finisher Helper Care Teams Dispatcher Chief Oil Relationship Specialty Start Date End Date Polly Abbott MD PCP - External Follow Up Medical Oncology 03/30/16 [address] [place], [place] [id number] Polly Abbott MD PCP - External Referring Medical Oncology 03/30/16 [address] [place], [place] [id number] Jorge Tracey MD PCP - External Primary Internal Medicine 03/30/[address] [place] [address] [place] [phone] Fannie Macias PCP - General Lymphoma and Myeloma 03/30/16 MD [facility] [place] [address]
--- OUTSIDE RECORDS SUMMARY | 2022-07-17 11:11 | XMS REPORT | Continuity of Care Document ---
:[address] [facility] t Address [address] [place] [address] Care Team Providers Name Role Phone Fannie Macias MD Primary Care Physician Letha Guevara APRN Attending Clinician GRICELDA GUERRERO Attending Clinician Unavailable Gricelda Guerrero DO Attending Clinician JULITA MUÑOZ Attending Clinician Unavailable DEBBIE WADSWORTH Attending Clinician Unavailable DEBBIE WADSWORTH Attending Clinician Unavailable Payers Payer Name Policy Type Policy Number Effective Date Expiration Date S sherman AETNA MEDIC[facility]00 AETNA MEDICARE ADV [facility] 2018 00:00:00 Problems Condition Condition Condition Status [...] Carotid Carotid Disease Active [facility] bruit bruit 6-14 Health 00:00: 00 Mitral Mitral Disease Active [...] involving 00 note extranodal extranodal might be Anderso site site different n from the Cancer [...] Medical Branch TRAZODON DRUG Active High Other-Cmnt 2016-0 Univ ers E INGREDI 04-08 ity of [...] Cancer Center PREGABAL DRUG Active High Other MD IN INGREDI 04-08 Anderso 00:00: n 00 PENICILL Drug Active High Anaphylaxis MD INS Class 04-08 Anderso 00:00: n 00 [...] Stop Date Source Natural daughter -Gastrointestinal U [facility] (Esophagus, Liver, MD [facility] Bile Duct, Stomach, Cente r Pancreas, Colon, Rectum, Anus Natural father [facility] Natural mother Colon cancer [facility] [place] [facility] Social History Social Habit Start Date Stop [...] [birth year] Universit y of 00:00:00 00:00:00 [place] MD Bernard love [facility] Smoking Status Start Date Stop Date [...] needed ointment 51 for mild pain. 0.125% Probiotic 2021- No [facility] Product 02-25 Health (Probiotic 15:41: 00:00 Acidophilus 51 :00 Beads) capsule oxybutynin 2021- No 10mg Take 10 mg UT (Ditropan) 02-25 by mouth. Hea lth 5 MG tablet 15:41: 00:00 51 :00 Apoaequorin 2021- No [facility] (Prevagen 02-25 Health Extra 15:41: 00:00 Strength) 51 :00 20 MG capsule Potassium 2021- No [facility] Gluconate 02-25 Health 595 MG 15:41: 00:00 capsule 51 :00 predniSONE 2021- No UT (Deltasone) 02-10 Health [...] HYDROcodone Yes UT -acetaminop 4-15 Health hen ([place]) 00:00: 10-325 MG 00 tablet Anoro Yes [...] 9.5 MG/24HR 00:00: the skin. 00 carBAMazepi 2021-0 Yes 100mg Take 100 U T ne [...] Take 100 UT (Zoloft) 1-09 mg by [facility] 100 MG 00:00: mouth. tablet 00 pramipexole 2019-08 Yes Serum .25mg Take 2 Un susan (MIRAPEX) 0-22 neuropathy tablets i ty of 0.125 mg 00:00: (0.25 mg[place] mouth [place] [facility] pramipexole 2019-08 Yes Serum .25mg Take 2 Un susan (MIRAPEX) 0-22 neuropathy tablets i ty of 0.125 mg 00:00: (0.25 mg[place] 00 [place] mouth at [facility]. [facility] pramipexole 2019-08 Yes Serum .25mg Take 2 Un susan (MIRAPEX) 0-22 neuropathy tablets i ty of 0.125 mg 00:00: (0.25 mg) [place] tablet 00 [place] mouth at [facility]. [facility] DULoxetine 2017-08 Yes Polyneuropa TAKE ONE Univers (CYMBALTA) 0-24 thy in CAPSULE BY i ty of 30 mg 00:00: diseases MOUTH [place] capsule 00 classified TWICE A MD elsewhere DAY Oc [facility] DULoxetine 2017-08 Yes Polyneuropa TAKE ONE Univers (CYMBALTA) 0-24 thy in CAPSULE BY i ty of 30 mg 00:00: diseases MOUTH [place] capsule 00 classified TWICE A MD elsewhere DAY Oc [facility] DULoxetine 2017-08 Yes Polyneuropa TAKE ONE Univers (CYMBALTA) 0-24 thy in CAPSULE BY i ty of 30 mg 00:00: diseases MOUTH [place] capsule 00 classified TWICE A MD elsewhere DAY Oc [facility] DULoxetine Yes Serum TAKE 2 Univ ers (CYMBALTA) 6-07 neuropathy CAPSULES ity of 20 mg 00:00: BY MOUTH [place] capsule 00 EVERY DAY MD Oc watkins [facility] DULoxetine Yes Serum TAKE 2 Univ ers (CYMBALTA) 6-07 neuropathy CAPSULES ity of 20 mg 00:00: BY MOUTH [place] capsule 00 EVERY DAY MD Oc [facility] DULoxetine Yes Serum TAKE 2 Univ ers (CYMBALTA) 6-07 neuropathy CAPSULES ity of 20 mg 00:00: BY MOUTH [place] capsule 00 EVERY DAY MD Oc [facility]kins [facility] Yes 1{capsu Take 1 U nivers n capsule 5-04 le} capsule by ity of 10:00: mouth [place] 54 daily. MD Oc watkins [facility] Yes 1{capsu Take 1 U nivers n capsule 5-04 le} capsule by ity of 10:00: mouth [place] 54 daily. MD Oc [facility] Yes 1{capsu Take 1 U nivers n capsule 5-04 le} capsule by ity of 10:00: mouth [place] 54 daily. MD Oc wat[facility] gabapentin Yes Secondary Take 3 Univers (NEURONTIN) 5-04 peripheral tabs three ity of 300 mg 00:00: neuropathy times day [place] capsule 00 MD Oc [facility]kins [facility] gabapentin Yes Secondary Take 3 Univers (NEURONTIN) 5-04 peripheral tabs three ity of 300 mg 00:00: neuropathy times day [place] capsule 00 MD Oc [facility]kins [facility] gabapentin Yes Secondary Take 3 Univers (NEURONTIN) 5-04 peripheral tabs three ity of 300 mg 00:00: neuropathy times day [place] capsule 00 MD Oc watkins [facility] aspirin 81 Yes Restless 81mg TAKE 1 U nivers mg EC 5 leg TABLET (81 ity of tablet 00:00: syndrome MG) BY 00 MOUTH DAILY. [facility] aspirin 81 0 Yes Restless 81mg TAKE 1 U nivers mg EC 5-01 leg TABLET (81 ity of tablet 00:00: syndrome MG) BY [place] 00 MOUTH MD DAILY. [facility] aspirin 81 20180 Yes Restless 81mg TAKE 1 U nivers mg EC 5-01 leg TABLET (81 ity of tablet 00:00: syndrome MG) BY [place] 00 MOUTH MD DAILY. [facility] ibuprofen Yes TAKE 1 Univer s (ADVIL,MOTR 9-11 TABLET BY ity of [place]) 800 mg 00:00: MOUTH [place] tablet 00 TWICE A MD DAY [facility] ibuprofen Yes TAKE 1 Univer s (ADVIL,MOTR 9-11 TABLET BY ity of [place]) 800 mg 00:00: MOUTH [place] tablet 00 TWICE A MD DAY [facility] ibuprofen Yes TAKE 1 Univer s (ADVIL,MOTR 9-11 TABLET BY ity of IN) 800 mg 00:00: MOUTH [place] tablet 00 TWICE A MD DAY [facility] lansoprazol Yes 1mg Take 1 mg U nivers e 9-03 by mouth ity of (PREVACID) 00:00: daily. [place] 15 MG 00 MD capsule [facility] oxybutynin Yes 1{tbl} Take 1 Uni vers (DITROPAN-X 9-03 tablet by ity of L) 10 mg 24 00:00: mouth [place] hr tablet 00 daily. [facility] Yes 1mg Take 1 mg U nivers e 9-03 by mouth ity of (PREVACID) 00:00: daily. [place] 15 MG 00 MD capsule [facility] oxybutynin Yes 1{tbl} Take 1 Uni vers (DITROPAN-X 9-03 tablet by ity of L) 10 mg 24 00:00: mouth [place] hr tablet 00 daily. [facility] lansoprazol Yes 1mg Take 1 mg U nivers e 9-03 by mouth ity of (PREVACID) 00:00: daily. [place] 15 MG 00 MD capsule [facility] oxybutynin Yes 1{tbl} Take 1 Uni vers (DITROPAN-X 9-03 tablet by ity of L) 10 mg 24 00:00: mouth [place] hr tablet 00 daily. MD Renae [facility] HYDROcodone Yes 1{tbl} Take 1 Un susan -acetaminop 8-24 tablet by ity of hen (NORCO) 00:00: mouth [place] 7.5 mg-325 00 twice MD mg per daily. Anderso tablet [facility] HYDROcodone Yes 1{tbl} Take 1 Un susan -acetaminop 8-24 tablet by ity of hen (NORCO) 00:00: mouth [place] 7.5 mg-325 00 twice MD mg per daily. Anderso tablet [facility] HYDROcodone Yes 1{tbl} Take 1 Un susan -acetaminop 8-24 tablet by ity of hen (NORCO) 00:00: mouth [place] 7.5 mg-325 00 twice MD mg per daily. Anderso tablet [facility] zolpidem Yes 1{tbl} Take 1 Unive rs (AMBIEN CR) 6-11 tablet by ity of 12.5 mg CR 00:00: mouth [place] tablet 00 nightly as MD needed for Anderso sleep. [facility] zolpidem Yes 1{tbl} Take 1 Unive rs (AMBIEN CR) 6-11 tablet by ity of 12.5 mg CR 00:00: mouth [place] tablet 00 nightly as MD needed for Anderso sleep. [facility] zolpidem Yes 1{tbl} Take 1 Unive rs (AMBIEN CR) 6-11 tablet by ity of 12.5 mg CR 00:00: mouth [place] tablet 00 nightly as MD needed for Anderso sleep. [facility] ANORO Yes 1{puff} Inhale 1 Unive rs ELLIPTA 3-31 puff by ity of 62.5-25 00:00: mouth [place] mcg/actuati 00 daily. MD on dsdv Reported [place] on n 01/12/2017 [facility] ANORO Yes 1{puff} Inhale 1 Unive rs ELLIPTA 3-31 puff by ity of 62.5-25 00:00: mouth [place] mcg/actuati 00 daily. on dsdv Reported [facility] on n [facility]12/[facility] ANORO 2016-0 Yes 1{puff} Inhale 1 Unive rs ELLIPTA 3-31 puff by ity of 62.5-25 00:00: mouth [place] mcg/actuati 00 daily. on dsdv Reported [facility] on n 01/12/2017 [facility] Immunizations Ordered Immunization Filled Immunization Date Status Commen ts Source Name Name COVID-19 Pfizer & 2021-04-28 [facility]pleted [facility] Vacc[facility]:00 (PURPLE-DILUTE) COVID-19 Pfizer & 2021-04-28 Completed [facility] [...] Systolic blood pressure 2022-02-25 20:33:00 143 mm[Hg] [facility] Diastolic blood pressure 2022-02-25 20:33:00 95 mm[Hg] [facility] Heart rate 2022-02-25 20:33:00 89 /min [facility] height 2022-02-25 20:33:00 174 cm [facility] weight 2022-02-25 20:33:00 68.04 kg [facility] BMI 2022-02-25 20:33:00 22.48 kg/m2 [facility] Systolic blood pressure 2022-01-15 19:26:00 133 mm[Hg] [facility] Diastolic blood pressure 2022-01-15 19:26:00 77 mm[Hg] [facility] Heart rate 2022-01-15 19:26:00 83 /min [facility] height 2022-01-15 19:26:00 172.7 cm [facility] weight 2022-01-15 19:26:00 68.04 kg [facility] BMI 2022-01-15 19:26:00 22.81 kg/m2 [facility] Procedures Procedure Date / Time Performed Performing Clinician [facility] ECG 12-LEAD 2022-02-25 20:46:00 Letha Guevara [facility] ECG 12-LEAD 2022-01-15 19:26:00 YolandaGricelda [facility] Plan of Care Planned Activity Planned Date Details Comments Source Future Scheduled 2022-06-08 COVID-19 Vaccination [facility] [place] Test 12:45:04 (#1) [code = COVID-19 [facility] (#1)] Center Future Scheduled 2022-06-08 COVID-19 Vaccination [facility] [place] Test 12:45:04 (#1) [code = COVID-19 [facility] Vaccination (#1)] Center Future Scheduled 2022-06-08 COVID-19 Vaccination [facility] [place] Test 12:45:04 (#1) [code = COVID-19 [facility] Vaccination (#1)] Center Encounters Start End Encounter Admission Attending Care Care Encounter Source Date/Time Date/Time Type Type Clinicians Facility Department ID 2022-02-25 2022-02-25 Office BARRY Guevara [id number] [place] 15:30:00 16:03:53 Visit Letha JENSEN [id number] [facility] [id number] 2022-02-03 2022-02-03 Outpatient NATE GUERRERO CAR [id number] NATE 09:00:00 15:48:00 GRICELDA 2022-01-15 2022-01-15 Office BARRY Guerrero [id number] [place] 14:15:00 15:09:52 Visit Gricelda JENSEN [id number] He [facility] CLINIC [id number] 2020-09-24 2020-09-24 Outpatient JULITA VAZ [facility] MDA [id number] 08:54:05 11:51:35 Yo watkins 2020-09-202020-09-20 Outpatient DEBBIE CAI [facility] [id number] Univers 09:20:00 09:20:00 DEBBIE WADSWORTH [facility] 2019-11-06 2019-11-06 Outpatient DEBBIE CAI [facility] [id number] Univers 09:20:00 09:20:00 DEBBIE WADSWORTH rehana [facility] Results Test Description Test Time Test Comments Results Result Comments Source ECG 12 lead 2022-02-25 20:46:00 Test Item Value Reference Range Interpretation Comme nts Lab Interpretation (test code = 08400-2) Abnormal [facility] 12 [id number] 19:26:00 Test Item Value Reference Range Interpretation Comments Lab Interpretation (test code = Normal 11241-3) [facility]
[2022-07-17] MEDS ORDERED: FENTANYL CITR 100 MCG/2 ML ONE (11:24)
[2022-07-17 11:49] LABS: Hematocrit 35.9 % (36.0-45.0); Lymphocytes % 6.8 % (15.3-44.8); MCV 84.7 fL (80-100); MPV 6.9 fL (7.6-11.3); RBC Red Blood Cell Count 4.24 M/uL (3.86-4.86)
[2022-07-17 12:27] LABS: Bilirubin Total 0.6 mg/dL (0.2-1.0); Magnesium 2.1 mg/dL (1.6-2.4); Potassium 4.3 mmol/L (3.5-5.1); Protein, Total 5.6 g/dL (6.4-8.2); Thyroid Stimulating Hormone 1.06 uIU/mL (0.358-3.740)
--- NOTE | 2022-07-17 12:28 | RAD REPORT ---
EXAM DESCRIPTION: Danyel Single View07/17/2022 11:43 am CLINICAL HISTORY: Chest pain COMPARISON: June 2022 FINDINGS: Moderate bilateral patchy lung opacities. Heart is normal size. Pacemaker leads in place IMPRESSION: Moderate patchy bilateral pulmonary opacities represent pulmonary edema or pneumonia
--- NOTE | 2022-07-17 13:27 | RAD REPORT ---
EXAM DESCRIPTION: CT - Head Brain Wo Cont - 07/17/2022 1:09 pm CLINICAL HISTORY: Mental status change, unknown cause Headache, drowsiness COMPARISON: Facial Bones W/ Mpr dated 04/11/2017; HEAD BRAIN W O CONTRAST dated 09/03/2015 TECHNIQUE: All CT scans are performed using dose optimization technique as appropriate and may inclu de automated exposure control or mA/KV adjustment according to patient size. FINDINGS: No intracranial hemorrhage, hydrocephalus or extra-axial fluid collection.Moderate general ized brain atrophy is present with mild periventricular and deep white matter chronic microvascular i schemic changes.No areas of brain edema or evidence of midline shift. The paranasal sinuses and mastoids are clear. The calvarium is intact. IMPRESSION: No acute intracranial abnormality.
--- NOTE | 2022-07-17 13:30 | RAD REPORT ---
EXAM DESCRIPTION: CTAbdomen Pelvis W Contrast - 07/17/2022 1:09 pm CLINICAL HISTORY: Abdominal pain. Epigastric pain COMPARISON: No comparisons TECHNIQUE: Biphasic CT imaging of the abdomen and pelvis was performed with 100 ml non-ionic IV cont rast. All CT scans are performed using dose optimization technique as appropriate and may include automated exposure control or mA/KV adjustment according to patient size. FINDINGS: Mild opacities in both lung bases noted with small pleural effusions. Mild infiltrate is l ikely present. Pacemaker wires are noted. Small hiatal hernia. Intrahepatic biliary tree is mildly prominent. Cholecystectomy clips are seen. Common bile duct is al so prominent in size measuring up to 11 mm. The spleen, adrenal glands and kidneys are within normal limits. Aortoiliac atherosclerosis. No bowel obstruction, free air, free fluid or abscess. Significant stool is present throughout the co ranjana. The appendix is normal. No evidence of significant lymphadenopathy. Moderate lumbar degenerative changes. IMPRESSION: Cholecystectomy with intra and extrahepatic biliary tree dilatation is present. MRCP cou ld be obtained for further evaluation if clinically indicated. Small bilateral pleural effusions are present with mild patchy opacities in both lung bases, likely a mild infiltrate.
[2022-07-17 14:52] LABS: Urine Blood Trace-intact (Negative); Urine Glucose Negative (Negative); Urine Protein 1+ (Negative); Urine Specific Gravity 1.015 (1.005-1.030); Urine pH 5.5 (5.0-7.0)
[2022-07-17 14:59] LABS: Transitional Epithelial <5 /HPF (None Seen); Urine Bacteria None Seen /HPF (<20); Urine Mucus Slight /HPF (None Seen)
[2022-07-17] MEDS ORDERED: FUROSEMIDE 40 MG/4 ML VIAL ONE (15:27)
[2022-07-17] MEDS ORDERED: Levofloxacin 750mg IV 750 MG/150 ML BAG IV ONE (15:27)
--- NOTE | 2022-07-17 16:19 | EDPHYS ---
Physician Documentation [facility] Name: Gracie Lewis Age: 89 yrs Sex: Female : 1930 Arrival Date: 07/17/2022 Time: 11:10 Bed 4 Private MD: ED Physician Bobby Billy HPI: 07/17 11:43 This 89 yrs old Female presents to ER via Unassigned with complaints of AMS. rt 11:43 The patient presents with confusion. The patient presents with confusion. Onset: The rt symptoms/episode began/occurred at an unknown time. Associated signs and symptoms: Pertinent positives: abdominal pain. Current symptoms: In the emergency department the patient's symptoms have improved. Unable to obtain HPI due to baseline dementia. Patient with baseline dementia presents to the ED with an altered mental status. History is obtained per the patient's daughter. She reportedly complained of abdominal pain as well as a leg pain. Patient was reportedly febrile to [id number] at the care home. No further history could be obtained, no other reported symptoms. Symptoms are moderate in severity, no other aggravating or alleviating factors.. Historical: - Allergies: 12:43 moon; ko1 12:43 Lyrica; ko1 12:43 PENICILLINS; ko1 12:43 tramadol; ko1 - PMHx: 12:43 Depression; Gastric Reflux; GERD; insomnia; LYMPHOMA; neuropathy; restless leg syndrome;ko1 - Immunization history:: Adult Immunizations up to date. - Social history:: Smoking status: Patient denies any tobacco usage or history of. - Unable to obtain history due to: baseline dementia. ROS: 11:43 Unable to obtain ROS due to altered mental status, baseline dementia. rt Exam: 11:43 Constitutional: This is a well developed, well nourished patient who is awake, alert, rt and in no acute distress. Head/Face: Normocephalic, atraumatic. Eyes: Pupils equal round and reactive to light, extra-ocular motions intact. Lids and lashes normal. Conjunctiva and sclera are non-icteric and not injected. Cornea within normal limits. Periorbital areas with no swelling, redness, or edema. Neck: Trachea midline, no thyromegaly or masses palpated, and no cervical lymphadenopathy. Supple, full range of motion without nuchal rigidity, or vertebral point tenderness. No Meningismus. Chest/axilla: Normal chest wall appearance and motion. Nontender with no deformity. No lesions are appreciated. Cardiovascular: Regular rate and rhythm with a normal S1 and S2. No gallops, murmurs, or rubs. Normal PMI, no JVD. No pulse deficits. Respiratory: Lungs have equal breath sounds bilaterally, clear to auscultation and percussion. No rales, rhonchi or wheezes noted. No increased work of breathing, no retractions or nasal flaring. Abdomen/GI: Soft, non-tender, with normal bowel sounds. No distension or tympany. No guarding or rebound. No evidence of tenderness throughout. Back: No spinal tenderness. No costovertebral tenderness. Full range of motion. Skin: Warm, dry with normal turgor. Normal color with no rashes, no lesions, and no evidence of cellulitis. 11:43 Musculoskeletal/extremity: 3 Plus pitting lower extremity edema.. 11:43 Neuro: Confused, moves all 4 extremities equally. Vital Signs: 12:02 BP 111 / 52; Pulse 63; Resp 20 S; Pulse Ox 98% ; iw 14:53 BP 124 / 51; Pulse 65; Resp 18; Temp 97.7(O); Pulse Ox 95% on R/A; ko1 15:36 BP 112 / 48; Pulse 60; Pulse Ox 95% on R/A; ko1 17:20 BP 115 / 89; Pulse 64; Pulse Ox 94% on R/A; ko1 18:35 BP 100 / 50; Pulse 63; Resp 15; Pulse Ox 99% on R/A; hb 21:40 BP 100 / 56; Pulse 65; Resp 18 S; Pulse Ox 96% on 2 lpm NC; ha1 MDM: 11:10 Patient medically screened. rt 16:33 Differential Diagnosis: CVA, hypoglycemia, intracranial bleed, meningitis, pneumonia. rt Data reviewed: vital signs, nurses notes, old medical records, lab test result(s), EKG, radiologic studies. ED course: Patient presents to the ED with an altered mental status and reported abdominal pain. Abdominal CT shows no acute abnormalities. She does have a pneumonia versus pulmonary edema. Given degree of peripheral edema, I suspect this is a volume overload as compared to pneumonia, will treat for both. Patient with mildly elevated troponin, BNP. Patient with a leukocytosis but no other sirs markers. Nonetheless, blood cultures were ordered. Patient will be admitted for further care. 07/17 11:13 Order name: CBC with Diff; Complete Time: 13:32 rt 07/17 11:13 Order name: CMP; Complete Time: 13:32 rt 07/17 11:13 Order name: Troponin High Sensitivity; Complete Time: 13:32 rt 07/17 11:13 Order name: BNP; Complete Time: 13:32 rt 07/17 11:13 Order name: Lipase; Complete Time: 13:32 rt 07/17 11:13 Order name: Lactate w/ 2H reflex if indic.; Complete Time: 13:32 rt 07/17 11:13 Order name: Blood Culture Adult (2) rt 07/17 11:13 Order name: UA MICROSCOPIC; Complete Time: 15:04 rt 07/17 11:13 Order name: TSH; Complete Time: 13:32 rt 07/17 11:13 Order name: Magnesium; Complete Time: 13:32 rt 07/17 14:53 Order name: Urine Dipstick-Ancillary; Complete Time: 15:04 EDMS 07/17 17:14 Order name: SARS RAPID eb 07/17 17:21 Order name: CBC with Automated Diff EDMS 07/17 17:21 Order name: CBC with Automated Diff EDMS 07/17 11:13 Order name: Chest Single View XRAY; Complete Time: 13:32 rt 07/17 11:13 Order name: CT Abd/Pelvis - IV Contrast Only; Complete Time: 13:32 rt 07/17 11:13 Order name: Head Brain Wo Cont CT; Complete Time: 13:32 rt 07/17 17:21 Order name: Comprehensive Metabolic Panel EDMS 07/17 17:21 Order name: Comprehensive Metabolic Panel EDMS 07/17 17:21 Order name: Lipase EDMS 07/17 17:21 Order name: Lipase EDMS 07/17 17:21 Order name: Protime (+INR) EDMS 07/17 17:21 Order name: Protime (+INR) EDMS 07/17 17:21 Order name: PTT, Activated Partial Thromb EDMS 07/17 17:21 Order name: PTT, Activated Partial Thromb EDMS 07/17 17:21 Order name: Troponin High Sensitivity EDMS 07/17 17:21 Order name: Troponin High Sensitivity EDMS 07/17 17:39 Order name: Lactate Sepsis 2 HR Follow-up [facility] 07/17 11:13 Order name: Urine Dipstick-Ancillary (obtain specimen); Complete Time: 14:54 rt 07/17 17:21 Order name: CONS Physician Consult [facility] 07/17 17:21 Order name: Heart Healthy [facility] 07/17 17:42 Order name: Misc. Order: Restroom assistance; Complete Time: 18:34 [facility] 07/17 18:34 Order name: Carr; Complete Time: 18:34 hb Administered Medications: 11:28 Drug: fentaNYL (PF) 50 mcg Route: IVP; Site: right antecubital; ko1 15:27 Drug: Lasix (furosemide) 40 mg Route: IVP; Site: left antecubital; ko1 15:32 Drug: LevaQUIN (levofloxacin) 750 mg Route: IVPB; Site: right antecubital; ko1 Disposition Summary: 07/17/22 16:19 Hospitalization Ordered Hospitalization Status: Inpatient Admission rt Provider: Merlene Sotelo rt Location: Telemetry/[facility] (Inpatient) rt Condition: Stable rt Problem: new rt Symptoms: are unchanged rt Bed/Room Type: Standard rt Room Assignment: 431(07/17/22 18:54) eb Diagnosis - Altered mental status, unspecified rt - Acute pulmonary edema rt Forms: - Medication Reconciliation Form rt - SBAR form rt Signatures: Dispatcher [employer] [facility] Clifton Salvador PA PA jmm Baxter, Heather, RN RN Rissa Soares Kathy, RN RN ko1 Bobby Billy MD MD rt Corrections: (The following items were deleted from the chart) 18:54 16:19 rt eb
--- NOTE | 2022-07-17 16:19 | ER ---
Nurse's Notes [facility] Name: Gracie Lewis Age: 89 yrs Sex: Female : 1930 Arrival Date: 07/17/2022 Time: 11:10 Bed 4 Private MD: Diagnosis: Altered mental status, unspecified;Acute pulmonary edema Presentation: 07/17 12:00 Method Of Arrival: EMS: [facility] ko1 12:00 Chief complaint: EMS states: patients daughter called due to patient having abdominal ko1 pain. Coronavirus screen: At this time, the client does not indicate any symptoms associated with coronavirus-19. Ebola Screen: No symptoms or risks identified at this time. Initial Sepsis Screen: Does the patient meet any 2 criteria? No. Patient's initial sepsis screen is negative. Does the patient have a suspected source of infection? No. Patient's initial sepsis screen is negative. Risk Assessment: Do you want to hurt yourself or someone else? Patient reports no desire to harm self or others. Onset of symptoms was July 17, 2022. Care prior to arrival: Medication(s) given: Normal saline infusion, 500 mL, IV initiated. 20 GA, in the right antecubital area, Glucose check: 116. 12:00 Acuity: ZUNILDA 2 ko1 Triage Assessment: 12:00 General: Appears distressed, uncomfortable, ill, Behavior is cooperative, appropriate ko1 for age, restless. Pain: Complains of pain in abdomen. Historical: - Allergies: 12:43 moon; ko1 12:43 Lyrica; ko1 12:43 PENICILLINS; ko1 12:43 tramadol; ko1 - PMHx: 12:43 Depression; Gastric Reflux; GERD; insomnia; LYMPHOMA; neuropathy; restless leg syndrome;ko1 - Immunization history:: Adult Immunizations up to date. - Social history:: Smoking status: Patient denies any tobacco usage or history of. - Unable to obtain history due to: baseline dementia. Screenin:00 [facility] ED Fall Risk Assessment (Adult) History of falling in the last 3 months, ko1 including since admission No falls in past 3 months (0 pts) Confusion or Disorientation Yes (5 pts) Intoxicated or Sedated No (0 pts) Impaired Gait Yes (1 pt) Mobility Assist Device Used Yes (1 pt) Altered Elimination Yes (1 pt) Score/Fall Risk Level 3 or more points = High Risk Oriented to surroundings, Maintained a safe environment, Educated pt \T\ family on fall prevention, incl call for assistance when getting out of bed, Assessed \T\ reinforced patient's understanding of fall precautions, Provided non-skid footwear, Hourly rounding (assess needs \T\ fall precautionary measures) done, Used ambulatory aids as needed (educated on \T\ assisted with), Used gait belt as appropriate Implemented a Fall Risk Plan of Care, Apply high fall risk patient identification: yellow non skid footwear/ fall signage, Remained w/in arm's length of patient and in sight while toileting, Utilized family, sitter, or virtual taffy puller as indicated. Abuse screen: Denies threats or abuse. Denies injuries from another. Nutritional screening: No deficits noted. Tuberculosis screening: No symptoms or risk factors identified. Fall Risk No fall in past 12 months (0 pts). Secondary diagnosis (15 points) impaired mobility, IV access (20 points). Ambulatory Aid- None/Bed Rest/Nurse Assist (0 pts). Gait- Weak (10 pts.). Mental Status- Overestimates/Forgets Limitations (15 pts.). Total Recinos Fall Scale indicates High Risk Score (45 or more points). Fall prevention measures have been instituted. Side Rails Up X 2 Frequent Obs/Assessments Occuring Family Present and informed to notify staff if the need to leave the bedside As available patient and family educated on Fall Prevention Program and Strategies. Assessment: 12:00 General: Appears distressed, uncomfortable, ill, Behavior is anxious. ko1 18:34 Reassessment: Patient appears in no apparent distress at this time. Patient and/or hb family updated on plan of care and expected duration. Pain level reassessed. Patient is alert, oriented x 3, equal unlabored respirations, skin warm/dry/pink. 19:50 Reassessment: Patient and/or family updated on plan of care and expected duration. Pain ha1 level reassessed. Patient is alert, oriented x 3, equal unlabored respirations, skin warm/dry/pink. 20:50 Reassessment: Patient and/or family updated on plan of care and expected duration. Pain ha1 level reassessed. Patient is alert, oriented x 3, equal unlabored respirations, skin warm/dry/pink. 21:40 Reassessment: Patient and/or family updated on plan of care and expected duration. Pain ha1 level reassessed. Patient is alert, oriented x 3, equal unlabored respirations, skin warm/dry/pink. Vital Signs: 12:02 BP 111 / 52; Pulse 63; Resp 20 S; Pulse Ox 98% ; iw 14:53 BP 124 / 51; Pulse 65; Resp 18; Temp 97.7(O); Pulse Ox 95% on R/A; ko1 15:36 BP 112 / 48; Pulse 60; Pulse Ox 95% on R/A; ko1 17:20 BP 115 / 89; Pulse 64; Pulse Ox 94% on R/A; ko1 18:35 BP 100 / 50; Pulse 63; Resp 15; Pulse Ox 99% on R/A; hb 21:40 BP 100 / 56; Pulse 65; Resp 18 S; Pulse Ox 96% on 2 lpm NC; ha1 ED Course: 11:10 Patient arrived in ED. eb 11:10 Bobby Billy MD is Attending Physician. rt 11:14 Opal Barragan, OMAR is Primary Nurse. ko1 11:45 Chest Single View XRAY In Process Unspecified. EDMS 12:00 No provider procedures requiring assistance completed. Maintain EMS IV. Dressing ko1 intact. Good blood return noted. Site clean \T\ dry. Gauge \T\ site: 20g right AC. 12:00 Arm band placed on left wrist. ko1 12:00 Patient has correct armband on for positive identification. Placed in gown. Bed in low ko1 position. Call light in reach. Side rails up X2. Adult w/ patient. Client placed on continuous cardiac and pulse oximetry monitoring. NIBP monitoring applied. campus monitor on. Door closed. Noise minimized. Lights dimmed. Warm blanket given. Pillow given. Head of bed elevated. Elevated foot. 12:04 Magnesium Sent. ko1 12:04 TSH Sent. ko1 12:04 Blood Culture Adult (2) Sent. ko1 12:04 Lactate w/ 2H reflex if indic. Sent. ko1 12:04 Lipase Sent. ko1 12:05 BNP Sent. ko1 12:05 CMP Sent. ko1 12:43 Triage completed. ko1 13:11 CT Abd/Pelvis - IV Contrast Only In Process Unspecified. EDMS 13:11 Head Brain Wo Cont CT In Process Unspecified. EDMS 14:54 UA MICROSCOPIC Sent. ko1 16:18 Merlene Sotelo MD is Hospitalizing Provider. rt 17:30 SARS RAPID Sent. hb 18:05 Carr cath inserted, using sterile technique, 16 Fr., by ED staff, balloon inflated, to hb gravity drainage, returned clear yellow urine. Patient tolerated well. 21:05 Primary Nurse role handed off by Opal Barragan RN 21:53 Patient admitted, IV remains in place. ha1 Administered Medications: 11:28 Drug: fentaNYL (PF) 50 mcg Route: IVP; Site: right antecubital; ko1 15:27 Drug: Lasix (furosemide) 40 mg Route: IVP; Site: left antecubital; ko1 15:32 Drug: LevaQUIN (levofloxacin) 750 mg Route: IVPB; Site: right antecubital; ko1 Medication: 12:00 VIS not applicable for this client. ko1 Intake: 14:56 IV: 1000ml (IV Fluid); Total: 1000ml. ko1 16:00 IV: 150ml (IV Fluid); Total: 1150ml. ko1 Output: 14:56 Urine: 300ml (Straight Cath); Total: 300ml. ko1 16:00 Urine: 300ml; Total: 600ml. ko1 17:21 Urine: 300ml (Voided); Total: 900ml. ko1 Outcome: 16:19 Decision to Hospitalize by Provider. rt 21:53 Admitted to Med/surg accompanied by nurse, via stretcher, room 431, with oxygen, with ha1 chart. 21:53 Condition: stable 21:54 Patient left the ED. ha1 Signatures: Dispatcher [employer] EDAmaris Padron RN RN Adriana Nuñez RN RN Rissa Soares Wendy Gloria Lei RN RN [facility] Opal aBrragan RN RN ko1 Bobby Billy MD MD rt Corrections: (The following items were deleted from the chart) 12:03 12:02 BP 111 / 52; Pulse 63bpm; Resp 26bpm; Pulse Ox 98%; iw iw 12:45 12:43 General: Appears distressed, uncomfortable, ill, Behavior is cooperative, ko1 appropriate for age, restless, ko1 12:45 12:43 Pain: Complains of pain in abdomen ko1 ko1
[2022-07-17] MEDS ORDERED: ONDANSETRON 4 MG/2 ML VIAL IV PRN (17:14)
[2022-07-17 17:57] LABS: SARS-CoV-2 Antigen Rapid Res Negative (Negative)
[2022-07-17] MEDS ORDERED: MINERAL OIL 30 ML UCUP PO ONE (18:00)
[2022-07-17] MEDS ORDERED: ALBUMIN HUMAN 25% 50 ML IV ONE (18:00)
[2022-07-17] MEDS ORDERED: NA CHLORIDE 0.9% 1,000 ML IV SCH (18:00)
--- NOTE | 2022-07-17 18:04 | P.HP ---
Certification for Inpatient Patient admitted to: Inpatient With expected LOS: >2 Midnights Patient will require the following post-hospital care: None Practitioner: I am a practitioner with admitting privileges, knowledge of patient current condition, hospital course, and medical plan of care. Services: Services provided to patient in accordance with Admission requirements found in Title 42 Section 412.3 of the Code of Federal Regulations Patient History Date of Service: 07/17/22 Reason for admission: Constipation/CHF History of Present Illness: Primary care provider is Dr. Tracey. Patient is a 89-year-old female with a history of congestive heart failure who was recently in the hospital with pneumonia. Patient was treated with antibiotics and was discharged with 3-4 more days of antibiotics. She started having some abdominal pain and confusion according to her daughter. She was brought into the emergency room where an echocardiogram revealed possible congestive heart failure. CT scan showed large stool burden. Patient appears to be very constipated. Will give her some laxative. Alleviate her abdominal pain. No signs of infection intra-abdominally. He does have a mild leukocytosis. She will be admitted to the hospital for further treatment of her abdominal pain with initial treatment being laxatives and then with her mild sh ortness of breath being treated with diuretics. She will be in the hospital for possible 48-72 hours. Allergies Penicillins Allergy (Severe, Verified 06/24/22 01:45) UNKNOWN gabapentin Allergy (Unknown, Verified 07/17/22 21:57) confusion and agitation trazodone Allergy (Unknown, Verified 07/17/22 21:57) Cognition-confusion pregabalin [From Lyrica] Allergy (Verified 06/24/22 01:45) Unknown moon Allergy (Uncoded 06/24/22 01:45) Unknown Home Medications: Aspirin [Aspirin EC 81 MG] 81 mg PO DAILY 06/21/22 Furosemide [Lasix] 20 mg PO BID 06/21/22 Oxycodone HCl [Oxycodone HCl ER] 10 mg PO TID 06/21/22 Temazepam [Restoril] 7.5 mg PO BEDTIME 06/25/22 Fluticasone/Umeclidin/Vilanter [Trelegy Ellipta 100-62.5-25] 2 puff PO BID 07/17/22 Multivitamins(Centrum) 1 tab PO DAILY 07/17/22 Nitroglycerin Oint [Nitrol Oint*] 1 gm TOP DAILY 07/17/22 Probiotics 2 cap PO DAILY 07/17/22 - Past Medical/Surgical History Diabetic: No -: depression -: gerd -: insomia -: lymphoma -: neuropathy -: restless legs syndrome -: pacemaker -: Cholecystectomy -: Hysterectomy - Family History Father Medical History: Heart disease Mother Medical History: Cancer Notes: colon CA - Social History Smoking Status: Never smoker Alcohol use: No CD- Drugs: No Caffeine use: Yes Review of Systems 10-point ROS is otherwise unremarkable Physical Examination - Vital Signs Temperature: 99 F Blood Pressure: 140/80 Pulse: 80 Respirations: 20 Pulse Ox (%): 95 - Physical Exam General: Alert, In no apparent distress, Oriented x3 HEENT: Atraumatic, PERRLA, Mucous membr. moist/pink, EOMI, Sclerae nonicteric Neck: Supple, 2+ carotid pulse no bruit, No LAD, Without JVD or thyroid abnormality Respiratory: Clear to auscultation bilaterally, Normal air movement Cardiovascular: Regular rate/rhythm, Normal S1 S2, Systolic murmur Gastrointestinal: Normal bowel sounds, Soft and benign, Non-distended, Tenderness ( suprapubic region) Musculoskeletal: No clubbing, No swelling, No tenderness Integumentary: No rashes Neurological: Normal speech, Normal tone, Sensation intact, Cranial nerves 3-12 intact, Normal affect, Abnormal strength Lymphatics: No axilla or inguinal lymphadenopathy - Studies Laboratory Data (last 24 hrs) 07/17/22 11:40: Sodium 140, Potassium 4.3, BUN 16, Creatinine 1.00, Glucose 112 H, Magnesium 2.1, Total Bilirubin 0.6, AST 28, ALT 35, Alkaline Phosphatase 91, Lipase 289 07/17/22 11:40: WBC 15.00 H, Hgb 11.7 L, Hct 35.9 L, Plt Count 221 Assessment & Plan - Problems (Diagnosis) (1) Abdominal pain Current Visit: Yes Status: Acute (2) Dyspnea Current Visit: Yes Status: Acute (3) CHF (congestive heart failure) Current Visit: Yes Status: Acute (4) Chronic obstructive pulmonary disease (COPD) Current Visit: No Status: Acute (5) History of lymphoma Current Visit: No Status: Acute - Plan Plan: 1. Continue with laxatives 2. gentle diuresing 3. Monitor hemodynamics closely 4. daily weight and strict I&Os 5. gi and DVT prophylaxis Discharge Plan: Home Plan to discharge in: Greater than 2 days - Advance Directives Does patient have a Living Will: No Does patient have a Durable POA for Healthcare: No - Code Status/Comfort Care Code Status Assessed: Yes Code Status: Full Code Critical Care: No Time Spent Managing PTS Care (In Minutes): 45
[2022-07-17] MEDS: LACTULOSE 20 GM/30 ML UCUP PO SCH (21:00)
[2022-07-17] MEDS: MIRTAZAPINE 15 MG TAB PO SCH (22:19)
[2022-07-17] MEDS: CEFTRIAXONE 1,000 MG in NA CHLORIDE 0.9% 50 ML IVPB SCH (22:19)
[2022-07-17 23:08] VITALS: BMI 22.8
[2022-07-18] MEDS ORDERED: FUROSEMIDE 20 MG/ 2ML VIAL IV SCH (01:00)
[2022-07-18 06:55] LABS: Absolute Lymphocytes (CBC) 1.3 K/uL (0.7-4.9); Hematocrit 32.9 % (36.0-45.0); Lymphocytes % 11.5 % (15.3-44.8); MCV 84.3 fL (80-100); MPV 6.9 fL (7.6-11.3)
[2022-07-18 07:01] LABS: Protime INR 1.15
[2022-07-18 07:13] LABS: Albumin 2.6 g/dL (3.4-5.0); Bilirubin Total 0.8 mg/dL (0.2-1.0); Potassium 3.7 mmol/L (3.5-5.1); Protein, Total 5.2 g/dL (6.4-8.2)
[2022-07-18] MEDS: LACTULOSE 20 GM/30 ML UCUP PO SCH (09:00)
[2022-07-18] MEDS: CEFTRIAXONE 1,000 MG in NA CHLORIDE 0.9% 50 ML IVPB SCH ×2 (10:01→20:07)
[2022-07-18] MEDS: FUROSEMIDE 20 MG/ 2ML VIAL IV SCH ×2 (10:01→16:37)
[2022-07-18] MEDS: ACETAMINOPHEN 500 MG TAB PO PRN (16:38)
--- NOTE | 2022-07-18 17:05 | P.PN ---
Subjective Date of Service: 07/18/22 Subjective: No new changes, No C/O voiced, Improving Patient had a bowel movement. Patient clinically doing better. Will repeat chest x-ray morning. Remove Carr catheter in the morning. Will get her up out of bed and ambulate her and if she is doing well and I anticipate she should be able to go home. Will speak with her family and see if they need any assistance at the house. He has had multiple hospitalizations or ER visits recently. May need to arrange for home health placement as well. Review of Systems 10-point ROS is otherwise unremarkable Physical Examination - Vital Signs Temperature: 98.2 F Blood Pressure: 142/65 Pulse: 85 Respirations: 19 Pulse Ox (%): 98 - Physical Exam General: Alert, In no apparent distress, Oriented x3 Respiratory: Clear to auscultation bilaterally, Normal air movement Cardiovascular: Regular rate/rhythm, Normal S1 S2, No murmurs Gastrointestinal: Soft and benign, Non-distended, No tenderness, No rebound, No guarding Musculoskeletal: No clubbing, No swelling, No tenderness Integumentary: No rashes Neurological: Sensation intact, Cranial nerves 3-12 intact - Studies Medications List Reviewed: Yes Assessment & Plan - Problems (Diagnosis) (1) Abdominal pain Current Visit: Yes Status: Acute (2) Dyspnea Current Visit: Yes Status: Acute (3) CHF (congestive heart failure) Current Visit: Yes Status: Acute (4) Chronic obstructive pulmonary disease (COPD) Current Visit: No Status: Acute (5) History of lymphoma Current Visit: No Status: Acute - Plan Plan: 1. Continue with stool softener/laxatives-s/p BM; Abdominal pain has resolved 2. Change to oral diuretics 3. Monitor hemodynamics closely 4. Daily weight and strict I&Os 5. repeat chest x-ray in the morning 6. out of bed and ambulate 7. Anticipate discharge home in morning 8. GI and DVT prophylaxis Discharge Plan: Home - Advance Directives Does patient have a Living Will: No Does patient have a Durable POA for Healthcare: No - Code Status/Comfort Care Code Status: Full Code
[2022-07-18] MEDS: MIRTAZAPINE 15 MG TAB PO SCH (20:06)
[2022-07-18] MEDS: TEMAZEPAM 7.5 MG PO SCH (20:15)
[2022-07-18] MEDS ORDERED: OXYCODONE *CR* 10 MG TAB PO PRN (20:23)
[2022-07-18] MEDS: UMECLIDIN PO SCH (21:00)
[2022-07-18] MEDS: VILANTER PO SCH (21:00)
[2022-07-18] MEDS: FLUTICASONE PO SCH (21:00)
[2022-07-18] MEDS ORDERED: KCL 20 MEQ/100 mL IVPB 20 MEQ/100 ML BAG IV SCH (23:00)
[2022-07-19] MEDS ORDERED: NA CHLORIDE 0.9% 250 ML ONE (00:10)
[2022-07-19 06:51] LABS: Hematocrit 35.5 % (36.0-45.0); MPV 7.1 fL (7.6-11.3); RBC Red Blood Cell Count 4.22 M/uL (3.86-4.86)
[2022-07-19 06:52] LABS: Absolute Lymphocytes (CBC) 1.4 K/uL (0.7-4.9); Lymphocytes % 16.3 % (15.3-44.8)
[2022-07-19 07:07] LABS: Magnesium 2.1 mg/dL (1.6-2.4); Potassium 3.9 mmol/L (3.5-5.1)
--- NOTE | 2022-07-19 07:26 | RAD REPORT ---
EXAM DESCRIPTION: RAD - Chest Single View - 07/19/2022 5:56 am CLINICAL HISTORY: pneumonia COMPARISON: Portable July 17 TECHNIQUE: AP portable chest image was obtained 07/19/2022 5:56 am in supine position. FINDINGS: Bilateral lung parenchymal opacification present more pronounced on the left. There has be en interval improvement though significant pneumonia or pulmonary edema findings persist. No progress ion seen. No new tube or line identified. Left subclavian pacemaker in place. Heart and vasculature are normal. No measurable pleural effusion and no pneumothorax. No acute bony abnormality seen. No acute aortic findings suspected. IMPRESSION: Mild improvement in the bilateral, left greater than right, pneumonia and/or pulmonary e nae pattern.
[2022-07-19] MEDS: UMECLIDIN PO SCH ×2 (09:00→21:00)
[2022-07-19] MEDS: FLUTICASONE PO SCH ×2 (09:00→21:00)
[2022-07-19] MEDS: VILANTER PO SCH ×2 (09:00→21:00)
[2022-07-19] MEDS ORDERED: CEFTRIAXONE 1000 MG/VIAL ONE (09:07)
[2022-07-19] MEDS ORDERED: NA CHLORIDE 0.9% 50 ML IV ONE (09:07)
[2022-07-19] MEDS: CEFTRIAXONE 1,000 MG in NA CHLORIDE 0.9% 50 ML IVPB SCH ×2 (09:09→19:59)
[2022-07-19] MEDS: MULTIVITAMIN TAB PO SCH (09:10)
[2022-07-19] MEDS: OXYCODONE *CR* 10 MG TAB PO SCH (09:10)
[2022-07-19] MEDS: FUROSEMIDE 40 MG TABLET PO SCH (09:10)
[2022-07-19] MEDS: DOCUSATE NA 100 MG CAP PO SCH ×2 (09:10→20:00)
[2022-07-19] MEDS: ASPIRIN EC 81 MG TAB PO SCH (09:10)
--- NOTE | 2022-07-19 16:49 | CON ---
Date of Consultation: 07/18/2022 Reason For Consultation: Elevated troponin and congestive heart failure. History Of Present Illness: This is an 89-year-old female with history of heart failure, acid reflux , neuropathy, restless legs syndrome, presented to the emergency room with 3-4 days of shortness of b reath, confusion. On CT scan, she had a large stool burden, evaluated by bedside. Shortness of jaswinder th is mild on activities. No orthopnea. Has mild lower extremity edema. Past Medical History: As outlined above, HPI. Medications: Refer to reconciliation sheet for detailed list. Allergies: MULTIPLE ALLERGIES. PLEASE REFER TO THE NURSE'S SHEET. Family History: No premature coronary artery disease or cancer. Social History: Does not smoke or drink. Does not use any drugs. Review of Systems: All systems reviewed and they were negative except what mentioned in HPI. Physical Examination: Vital Signs: Reviewed. Head and Neck: Pupils are equal, reactive to light. Intact eye movements. Positive JVD. No cervic al lymphadenopathy. Neck is supple. Thyroid is not enlarged. Lungs: Rhonchi bilaterally. No accessory muscle use or muscle retraction. Heart: Irregular. No extra sounds. Abdomen: Soft, nontender. Bowel sounds positive. No organomegaly. No masses or hernia. No rigidi ty or rebound. Extremities: Trace edema bilaterally. No clubbing or cyanosis. Intact pulses. Skin: No rash. Neurologic: Alert, awake, oriented x3. No acute focal deficits appreciated. Lymph Nodes: No cervical or axillary lymphadenopathy. Investigations: BUN 17, creatinine 1.03. NT-proBNP is 4549. Troponin was 62 on admission. Chest x -ray resistive of pulmonary edema. Assessment And Recommendations: 1.Shortness of breath with findings suggestive of pulmonary edema. NT-proBNP is very high and her e chocardiogram from 06/30/2022 showed low-normal ejection fraction, severe pulmonary hypertension. Re commend IV diuretics and carefully monitor BUN, creatinine, electrolytes. 2.Elevated troponin with congestive heart failure and the ejection fraction is borderline. Recommen d a stress test to rule out ischemia as a cause of borderline low ejection fraction and elevated trop onin. Case discussed with primary hospitalist. SR/MODL Voice ID: [id number] Report ID: [id number]
--- NOTE | 2022-07-19 17:04 | PN ---
Date of Progress Note: 07/19/2022 Subjective: Seen by bedside. She is definitely doing better. Chest pain has resolved and shortness of breath is improved. Review of Systems: Mild shortness of breath with exertion. No further chest pain. No nausea, vomiting, diarrhea. No a bdominal pain. No dysuria, polyuria, or urinary urgency. All other systems reviewed and are negativ e. Physical Examination: Vital Signs: Temperature is 98.2, pulse 82, breathing at 18, blood pressure 139/64, saturating 96% o n room air. General: Pleasant elderly female, in no apparent distress. Head and Neck: Pupils are equal, reactive to light. Intact eye movements. No JVD. No cervical lym phadenopathy. Neck is supple. Thyroid is not enlarged. Lungs: Clear to auscultation bilaterally. No rhonchi, wheezing, or crackles. No accessory muscle u se. Heart: Irregular. No extra sounds. Abdomen: Soft, nontender. Bowel sounds positive. No organomegaly. No masses or hernia. No rigidi ty or rebound. Extremities: No edema, clubbing, or cyanosis. Intact pulses. Skin: No rash. Neurologic: Alert, awake, oriented x3. No acute focal deficits appreciated. Investigations: BUN 16, creatinine 0.93, and chest x-ray showed improvement of infiltrates, and hemo globin is 11.7. Assessment And Recommendations: 1.Acute on chronic congestive heart failure exacerbation. She is improving. Continue IV diuresis f or 1 more day and switch to oral by tomorrow. 2.Chest pain with elevated troponin and borderline low ejection fraction. Recommend a Lexiscan nuclear stress test to further evaluate. SR/MODL Voice ID: [id number] Report ID: [id number]
[2022-07-19] MEDS ORDERED: FUROSEMIDE 20 MG TABLET PO ONE (17:33)
[2022-07-19] MEDS: MIRTAZAPINE 15 MG TAB PO SCH (20:00)
[2022-07-19] MEDS: ACETAMINOPHEN 500 MG TAB PO PRN (20:00)
[2022-07-19] MEDS: TEMAZEPAM 7.5 MG PO SCH (21:00)
--- NOTE | 2022-07-19 21:51 | P.PN ---
Date of Service: 07/19/22 Subjective Pt continues to do well; symptoms improving; Pt had a large BM, and patient's pain is resolved. Occasional dyspnea Review of Systems 10-point ROS is otherwise unremarkable Physical Examination - Vital Signs Reviewed - Physical Exam General: Alert, In no apparent distress, Oriented x2-3 Respiratory: Clear to auscultation bilaterally, Normal air movement Cardiovascular: Regular rate/rhythm, Normal S1 S2, No murmurs Gastrointestinal: Soft and benign, Non-distended, No tenderness, No rebound, No guarding Musculoskeletal: No clubbing, No swelling, No tenderness Neurological: No focal deficits - Studies Medications List Reviewed: Yes Assessment & Plan - Problems (Diagnosis) (1) Abdominal pain Current Visit: Yes Status: Acute (2) Dyspnea Current Visit: Yes Status: Acute (3) CHF (congestive heart failure) Current Visit: Yes Status: Acute (4) Chronic obstructive pulmonary disease (COPD) Current Visit: No Status: Acute (5) History of lymphoma Current Visit: No Status: Acute - Plan Continue with plan of care as mentioned below: 1. Continue with stool softener/laxatives-s/p BM; Abdominal pain has resolved 2. Change to oral diuretics in AM 3. Monitor hemodynamics closely; stress test in the AM 4. Daily weight and strict I&Os 5. repeat chest x-ray in the morning 6. out of bed and ambulate 7. Anticipate discharge home in morning 8. GI and DVT prophylaxis Discharge Plan: Home - Advance Directives Does patient have a Living Will: No Does patient have a Durable POA for Healthcare: No - Code Status/Comfort Care Code Status: Full Code
[2022-07-20 06:15] LABS: Absolute Lymphocytes (CBC) 1.3 K/uL (0.7-4.9); Hematocrit 36.8 % (36.0-45.0); Lymphocytes % 23.7 % (15.3-44.8); MCV 83.5 fL (80-100); MPV 7.3 fL (7.6-11.3)
[2022-07-20 06:58] LABS: ALT/SGPT 25 U/L (13-56); AST/SGOT 15 U/L (15-37); Albumin 2.4 g/dL (3.4-5.0); Alkaline Phosphatase 80 U/L (45-117); BUN Blood Urea Nitrogen 15 mg/dL (7-18); Bicarbonate 29 mmol/L (21-32); Bilirubin Total 0.5 mg/dL (0.2-1.0); Folic Acid, (Folate) > 20.0 ng/mL (3.1-17.5); Glomerular Filtration Rate 57 ml/min (=/>90); Glucose Level 93 mg/dL (74-106); NT PRO-BNP 2921 pg/mL (<450); Potassium 4.1 mmol/L (3.5-5.1); Protein, Total 5.6 g/dL (6.4-8.2); Sodium Level 139 mmol/L (136-145)
[2022-07-20] MEDS: UMECLIDIN PO SCH ×2 (09:00→21:00)
[2022-07-20] MEDS: VILANTER PO SCH ×2 (09:00→21:00)
[2022-07-20] MEDS: FLUTICASONE PO SCH ×2 (09:00→21:00)
[2022-07-20] MEDS ORDERED: MIDAZOLAM HCL 2 MG/2 ML INJ ONE (09:02)
[2022-07-20] MEDS ORDERED: FENTANYL CITR 100 MCG/2 ML ONE (09:02)
[2022-07-20] MEDS ORDERED: LIDOCAINE 1% 20 ML MDV ONE (09:02)
[2022-07-20] MEDS ORDERED: HEPA 1000U/500MLS 0 UNIT/0 ML BAG IV ONE (09:02)
[2022-07-20] MEDS ORDERED: ATROPINE SULF 1 MG/10 ML SYR IV ONE (09:03)
[2022-07-20] MEDS ORDERED: CEFTRIAXONE 1000 MG/VIAL ONE (09:06)
[2022-07-20] MEDS ORDERED: NA CHLORIDE 0.9% 50 ML IV ONE (09:06)
[2022-07-20] MEDS: FUROSEMIDE 40 MG TABLET PO SCH (09:13)
[2022-07-20] MEDS: ASPIRIN EC 81 MG TAB PO SCH (09:13)
[2022-07-20] MEDS: CEFTRIAXONE 1,000 MG in NA CHLORIDE 0.9% 50 ML IVPB SCH (09:13)
[2022-07-20] MEDS: MULTIVITAMIN TAB PO SCH (09:16)
[2022-07-20] MEDS: OXYCODONE *CR* 10 MG TAB PO SCH (09:16)
[2022-07-20] MEDS: DOCUSATE NA 100 MG CAP PO SCH ×2 (09:18→20:59)
--- NOTE | 2022-07-20 09:40 | P.PN ---
Subjective Date of Service: 07/20/22 Chief Complaint: Constipation/CHF No acute events overnight. She reports that her abdominal pain is slightly improved compared to yesterday. She reports passing flatus and having bowel movements. Plan is for cardiac stress test this afternoon. Review of Systems 10-point ROS is otherwise unremarkable Gastrointestinal: Abdominal Pain, Constipation Physical Examination - Vital Signs Temperature: 97.8 F Blood Pressure: 146/78 Pulse: 87 Respirations: 16 Pulse Ox (%): 95 - Physical Exam General: Alert, In no apparent distress, Oriented x3 HEENT: Atraumatic, Mucous membr. moist/pink, Sclerae nonicteric Neck: JVD not distended Respiratory: Clear to auscultation bilaterally, Normal air movement Cardiovascular: Regular rate/rhythm, Normal S1 S2, No gallops, No rubs, No murmurs Gastrointestinal: Normal bowel sounds, Hypoactive, No rebound, No guarding, Tenderness (minimal) Musculoskeletal: No clubbing Integumentary: No rashes Neurological: Normal speech, Normal affect - Studies Medications List Reviewed: Yes Assessment And Plan - Plan # Community Acquired Pneumonia - Evaluation thus far: - Does not currently meet sepsis criteria - Procalcitonin = 1.89 - Chest x-ray (07/17/2022) = "moderate patchy bilateral pulmonary opacities represent pulmonary edema or pneumonia." - Chest x-ray (07/19/2022) = "mild improvement in the bilateral, left greater than right, pneumonia and/or pulmonary edema pattern." - Management plan: - Continue ceftriaxone - Consulted Respiratory Therapy - Supplemental oxygen to maintain SpO2 > 92% - Encouraged incentive spirometry # Intractable Abdominal Pain secondary to Fecal Impaction # Opioid-Induced Constipation - Improving, continue bowel regimen - CT abdomen/pelvis = "cholecystectomy with intra and extrahepatic biliary tree dilatation is present. MRCP could be obtained for further evaluation if clinically indicated. Small bilateral pleural effusions are present with mild patchy opacities in both lung bases, likely a mild infiltrate." # Type II Non-ST Segment Elevation Myocardial Infarction (Demand Ischemia) secondary to above - Cardiology consulted - recommendations appreciated - Plan for cardiac stress test today - Troponin trend: 62.0 -> 27.2 # Chronic Compensated Congestive Diastolic Heart Failure with Preserved Ejection Fraction # Severe Pulmonary Hypertension # Moderate-Severe Mitral Stenosis - Does not appear to be in acute CHF exacerbation clinically - Continue home furosemide # Chronic Obstructive Pulmonary Disease - Does not appear to be in acute exacerbation - Continue home inhalers # Restless Leg Syndrome # Gastroesophageal Reflux Disease # Depression # History of Lymphoma - Resume home medications once verified Enmanuel Chan M.D.
[2022-07-20] MEDS ORDERED: REGADENOSON 0.4 MG/5 ML SYR IV ONE (09:53)
[2022-07-20] MEDS: OXYCODONE *CR* 10 MG TAB PO PRN (15:50)
[2022-07-20] MEDS: MIRTAZAPINE 15 MG TAB PO SCH (21:00)
[2022-07-20] MEDS ORDERED: TEMAZEPAM 15 MG CAP PO SCH (21:00)
[2022-07-21] MEDS: ACETAMINOPHEN 500 MG TAB PO PRN (00:15)
[2022-07-21] MEDS ORDERED: CEFTRIAXONE 1000 MG/VIAL ONE (07:09)
[2022-07-21] MEDS ORDERED: NA CHLORIDE 0.9% 50 ML IV ONE (07:23)
[2022-07-21] MEDS: MULTIVITAMIN TAB PO SCH (07:56)
[2022-07-21] MEDS: FUROSEMIDE 40 MG TABLET PO SCH (07:56)
[2022-07-21] MEDS: DOCUSATE NA 100 MG CAP PO SCH (07:56)
[2022-07-21] MEDS: ASPIRIN EC 81 MG TAB PO SCH (07:58)
[2022-07-21] MEDS: UMECLIDIN PO SCH (07:59)
[2022-07-21] MEDS: FLUTICASONE PO SCH (07:59)
[2022-07-21] MEDS: VILANTER PO SCH (07:59)
[2022-07-21 08:07] VITALS: BP 145/67; TEMP 98.1
[2022-07-21 08:45] VITALS: O2SAT 97
[2022-07-21] MEDS ORDERED: CEFTRIAXONE 1,000 MG in NA CHLORIDE 0.9% 50 ML IVPB SCH (09:00)
--- NOTE | 2022-07-21 09:44 | RAD REPORT ---
EXAM DESCRIPTION: NM - Rest Stress Cardiac Imaging - 07/21/2022 7:59 am CLINICAL HISTORY: Chest pain. COMPARISON: None. TECHNIQUE: The patient was administered 10.7 mCi of Tc 99m Sestamibi prior to resting SPECT imaging of the heart. The patient was then administered 30.3 mCi of Tc 99m Sestamibi following exercise or ph armacologic stress. Multiplanar SPECT images were reviewed. FINDINGS: Large area of diminished radiotracer uptake involves the inferior left ventricular myocard ium on rest and stress sequences. Remainder of the left ventricular myocardium demonstrates normal ra diotracer activity. The left ventricular ejection fraction equals 81% IMPRESSION: Large apparent fixed perfusion defect involving the inferior left ventricular myocardium probably secondary to attenuation from the diaphragm. An infarct can also have this appearance. No evidence of stress-induced ischemia
[2022-07-21] MEDS: OXYCODONE *CR* 10 MG TAB PO PRN (09:52)
--- NOTE | 2022-07-21 11:14 | P.DS ---
Admission Date: 07/17/22 Discharge Date: 07/21/22 Disposition: ROUTINE DISCHARGE Discharge Condition: GOOD Reason for Admission: Constipation/CHF Consultations: 1. Cardiology Hospital Course: DIAGNOSES: # Community Acquired Pneumonia # Intractable Abdominal Pain secondary to Fecal Impaction # Opioid-Induced Constipation # Type II Non-ST Segment Elevation Myocardial Infarction (Demand Ischemia) secondary to above # Chronic Compensated Congestive Diastolic Heart Failure with Preserved Ejection Fraction # Severe Pulmonary Hypertension # Moderate-Severe Mitral Stenosis # Chronic Obstructive Pulmonary Disease # Restless Leg Syndrome # Gastroesophageal Reflux Disease # Depression # History of Lymphoma HOSPITAL COURSE: Ms. Gracie Lewis is a pleasant 89 year old female with a past medical history significant for chronic diastolic congestive heart failure, severe pulmonary hypertension, moderatesevere mitral stenosis, chronic obstructive pulmonary disease, restless leg syndrome, lymphoma, gastroesophageal reflux disease, and depression who was admitted to the [facility] on 07/17/2022 for abdominal pain. She was admitted to the Medicine service. Her CT abdomen/pelvis was notable for significant stool burden, which appears to have been secondary to opioid-induced constipation. She was treated with an aggressive bowel regimen, with significant improvement in her symptoms. In addition to her abdominal pain, she was found to have community-acquired pneumonia. She was treated with IV antibiotics, with improvement in her respiratory status. Cardiology was consulted due to her elevated troponin and she was evaluated by Dr. Yates. He recommended a nuclear stress test, which revealed, "large apparent fixed perfusion defect involving the inferior left ventricular myocardium probably secondary to attenuation from the diaphragm. An infarct can also have this appearance. No evidence of stress- induced ischemia." Ms. Lewis stated that she would like to be discharged today, and there is no way to convince her to stay. Dr. Yates felt that she is stable to be discharged home with furosemide and outpatient follow-up. In regards to her mitral stenosis, she states that she has an appointment with Cardiology to evaluate her for a potential mitral valve replacement on 08/11/2022. She was also advised to schedule a follow-up chest x-ray in 2-[address] Tracey to ensure resolution of her pneumonia. Incidentally, she was noted to microscopic hematuria. She was advised about the potential for an underlying urologic malignancy and instructed to follow-up with her PCP and/or Urology for further evaluation. She verbalized understanding and agreed to make these follow-up appointments. On 07/21/2022, she was seen on rounds and deemed medically stable for discharge. She was discharged with instructions to schedule follow-up appointments with her PCP (Dr. Tracey) and with Cardiology (Dr. Yates). She was provided prescriptions for levofloxacin and furosemide. She and her granddaughter (Ms. Fu) were given the opportunity to ask questions and reported no further questions. Furthermore, all questions were answered to the best of my ability. A copy of this discharge summary will be sent to the above providers to facilitate continuity of care. Today, I personally spent 35 minutes on her case, of which greater than 50% of the time was spent in patient education, counseling, and coordination of care as described above. - Physical Exam General: Alert, In no apparent distress, Oriented x3 HEENT: Atraumatic, Mucous membr. moist/pink, Sclerae nonicteric Neck: JVD not distended Respiratory: Clear to auscultation bilaterally, Normal air movement Cardiovascular: Regular rate/rhythm, Normal S1 S2, No gallops, No rubs, Diastolic murmur Gastrointestinal: Normal bowel sounds, Normoactive, No rebound, No guarding, No tenderness Musculoskeletal: No clubbing Integumentary: No rashes Neurological: Normal speech, Normal affect Vital Signs/Physical Exam: Temp Pulse Resp BP Pulse Ox 98.1 F 111 H 18 145/67 H 97 07/21/22 08:00 07/21/22 08:00 07/21/22 09:52 07/21/22 08:00 07/21/22 09:52 Laboratory Data at Discharge: WBC 5.50 K/uL (4.3-10.9) 07/20/22 05:35 Hgb 12.2 g/dL (12.0-15.0) 07/20/22 05:35 Hct 36.8 % (36.0-45.0) 07/20/22 05:35 Plt Count 224 K/uL (152-406) 07/20/22 05:35 PT 12.6 SECONDS (9.5-12.5) H 07/18/22 06:40 INR 1.15 07/18/22 06:40 APTT 30.8 SECONDS (24.3-36.9) 07/18/22 06:40 Sodium 139 mmol/L (136-145) 07/20/22 05:35 Potassium 4.1 mmol/L (3.5-5.1) 07/20/22 05:35 BUN 15 mg/dL (7-18) 07/20/22 05:35 Creatinine 0.95 mg/dL (0.55-1.02) 07/20/22 05:35 Glucose 93 mg/dL (74-106) 07/20/22 05:35 Magnesium 2.0 mg/dL (1.6-2.4) 07/20/22 05:35 Total Bilirubin 0.5 mg/dL (0.2-1.0) 07/20/22 05:35 AST 15 U/L (15-37) 07/20/22 05:35 ALT 25 U/L (13-56) 07/20/22 05:35 Alkaline Phosphatase 80 U/L (45-117) 07/20/22 05:35 Lipase 122 U/L (73-393) 07/18/22 06:40 Home Medications: Aspirin [Aspirin EC 81 MG] 81 mg PO DAILY 06/21/22 Oxycodone HCl [Oxycodone HCl ER] 10 mg PO TID 06/21/22 Temazepam [Restoril] 7.5 mg PO BEDTIME 06/25/22 Fluticasone/Umeclidin/Vilanter [Trelegy Ellipta 100-62.5-25] 2 puff PO BID 07/17/22 Multivitamins(Centrum) 1 tab PO DAILY 07/17/22 Nitroglycerin Oint [Nitrol Oint*] 1 gm TOP DAILY 07/17/22 Probiotics 2 cap PO DAILY 07/17/22 Docusate [Colace Cap*] 100 mg PO BID #60 cap 07/18/22 Furosemide [Lasix*] 40 mg PO DAILY #30 tab 07/18/22 levoFLOXacin [Levaquin] 500 mg PO DAILY #7 tab 07/18/22 Lactulose 30 ml PO DAILY PRN #1000 ml 07/19/22 New Medications: Docusate [Colace Cap*] 100 mg PO BID #60 cap Lactulose 30 ml PO DAILY PRN #1000 ml PRN Reason: Constipation Furosemide [Lasix*] 40 mg PO DAILY #30 tab levoFLOXacin [Levaquin] 500 mg PO DAILY #7 tab Physician Discharge Instructions: OK TO DC IV AND DC HOME FOLLOW-UP WITH PRIMARY CARE PROVIDER IN 1-2 WEEKS FOLLOW-UP WITH CARDIOLOGY IN 1-2 WEEKS RETURN TO THE ER IF symptoms worsen CALL DR. BHAGAT AT [phone] IF ANY QUESTIONS REGARDING HOSPITAL STAY. PLEASE CALL THE FLOOR AT [phone] IF ANY MEDICATION OR NURSING QUESTIONS. Diet: AHA Activity: Fall precautions Followup: Jorge Tracey MD [Primary Care Provider] - 1-2 Weeks (call to schedule an appointment) Jim Yates MD [ACTIVE - CAN ADMIT] - 1-2 Weeks (call to schedule an appointment) Time spent managing pt's care (in minutes): 35
--- NOTE | 2022-07-21 17:55 | PN ---
Date of Progress Note: 07/21/2022 Subjective: Seen by bedside. The patient wants to go home. Stress test was normal. Still slightly short of breath with activities. Review of Systems: Shortness of breath with activity, mild orthopnea. No nausea, vomiting, diarrhea. No abdominal pain . No dysuria, polyuria, or urinary urgency. No skin rash, headache. All other systems reviewed and they were negative. Physical Examination: Vital Signs: Reviewed. Head and Neck: Pupils are equal, reactive to light. Intact eye movements. No cervical lymphadenopa thy. Mild JVD elevation. Lungs: Decreased breathing sounds with faint crackles on the bases. No accessory muscle use or musc le retraction. Heart: Irregular. No extra sounds. Abdomen: Soft, nontender. Bowel sounds positive. No organomegaly. No masses or hernia. No rigidi ty or rebound. Extremities: No clubbing or cyanosis. Intact pulses. Skin: No rash. Neurologic: Alert, awake. No acute focal deficits appreciated. Lymph Nodes: No cervical or axillary lymphadenopathy. Investigations: Stress test was negative. Assessment And Recommendations: 1.Acute on chronic diastolic heart failure exacerbation. The patient continues to be slightly fluid overloaded. Continue diuretics and if the patient is to be insistent on going home, I will start he r on Lasix 40 mg twice a day, carefully monitor BUN, creatinine, electrolytes as an outpatient and fo llow up within 2-3 days with a basic metabolic panel as an outpatient. 2.Borderline ejection fraction. Ischemia was ruled out by normal stress test. Recommend low-salt diet and diuretics and blood pressure control. SR/MODL Voice ID: [id number] Report ID: [id number]
--- NOTE | 2022-07-22 07:46 | TREADPHA ---
DX: ELEVATED TROPONIN Date of Study: 07/21/2022 Ht: 5' 8 " Wt: 149 lb 14.4 oz Consulting Physician: CHOLO MEDICATIONS: TYLENOL, ASPIRIN, REMENON, CENTRUM, ZOFRAN, OXYCONTIN HISTORY: 89 YEAR OLD FEMALE WITH COMPLAINTS OF SHORTNESS OF BREATH. PHYSICIAL EXAMINATION: RESTING B.P.: 143/73 RESTING H.R.: 92 RESTING EKG: NORMAL SINUS RYHTHM, T DEPRESSION IN INFERIOR LEADS. PROTOCOL: LEXISCAN EXERCISE TIME: 3:30 B.P. AT PEAK STRESS: 131/71 IMPRESSION: LEXISCAN INJECTED. CARDIOLITE INJECTED. SEE NUCLEAR MEDICINE REPORT. NO SUPRAVENTRICULAR TACHYCARDIA OR VENTRICULAR TACHYCARDIA. NO PREMATURE ATRIAL COMPLEXES AND PREMATURE VENTRICULAR COMPLEXES. PATIENT DENIES CHEST PAIN. PATIENT COMPLAINTS OF SHORTNESS OF BREATH. NON DIAGNOSTIC EKG PORTION OF THE TEST DUE TO ABNORMAL BASELINE.
== END 2022-07-21 11:47 | disposition home or self-care (01) | DRG 388 ==
LOC: ER 11:07 → ERHOLD 17:14 → 4TH 19:09
PROVIDERS: ADMIT Hospitalist; ATTEND Internal Medicine
PROC: 0T9B70Z Drainage of Bladder with Drainage Device, Via Natural or Artificial Opening (ICD-10-PCS; principal; 2022-07-17)
DX: K56.41 Fecal impaction (principal); G93.41 Metabolic encephalopathy; I50.33 Acute on chronic diastolic (congestive) heart failure; I21.A1 Myocardial infarction type 2; J18.9 Pneumonia, unspecified organism; G93.1 Anoxic brain damage, not elsewhere classified; I27.20 Pulmonary hypertension, unspecified; J44.9 Chronic obstructive pulmonary disease, unspecified; G25.81 Restless legs syndrome; K21.9 Gastro-esophageal reflux disease without esophagitis; F32.A Depression, unspecified; R10.9 Unspecified abdominal pain; Z85.79 Personal history of other malignant neoplasms of lymphoid, hematopoietic and related tissues; Z20.822 Contact with and (suspected) exposure to COVID-19
CPT/HCPCS: 36415; 51702; 70450; 71045; 74177; 78452; 80048; 80053; 81003; 81015; 82746; 83605; 83690; 83735; 83880; 84145; 84443; 84484; 85025; 85610; 85730; 87040; 87811; 93017; 94010; 97116; 97161; 97530; 99285; A9500; J0461; J1644; J1940; J2250; J2785; J3010; J3480; J7050; P9047; Q9967